=== PATIENT | female | born 1950 | race Caucasian/White ===

== ENCOUNTER → 2016-10-28 | Outpatient (CLI) | payer MEDICARE, MEDICAID ==
[~2016-10-28] MED LIST: ECOT325T5; HYDR10TA3; LISI30TA3; LOPR50TA; PRIL20CA; TEGR100C; THERGRAN
[2016-10-28 07:59] LABS: CARBAMAZEPINE (TEGRETOL) LEVEL 7.8 UG/ML (4.0-10.0)
[2016-10-28 08:04] LABS: BASO % 0.6 % (0.0-1.0); EOS # 0.2 K/mm3 (0.0-0.50); LARGE UNSTAINED CELL # 0.1 K/mm3 (0.0-0.4); LARGE UNSTAINED CELL % 2.9 % (0.0-4.0); LYMPH # 0.9 K/mm3 (1.5-4.5); LYMPH % 20.3 % (24.0-44.0); MEAN CORPUSCULAR HEMOGLOBIN 33.1 pg (27.0-33.0); MEAN CORPUSCULAR HGB CONC 35.2 g/dl (32.0-36.5); MEAN CORPUSCULAR VOLUME 93.9 fl (80.0-96.0); MONO # 0.5 K/mm3 (0.0-0.8); MONO % 10.8 % (0.0-5.0); NEUTROPHILS # 2.8 K/mm3 (1.8-7.7); NEUTROPHILS % 61.4 % (36.0-66.0); PLATELET COUNT, AUTOMATED 250 k/mm3 (150-450); RED CELL DISTRIBUTION WIDTH 11.5 % (11.5-14.5); WHITE BLOOD COUNT 4.6 K/mm3 (4.0-10.0)
== END ==
LOC: M LAB 07:15
PROVIDERS: ATTEND Physician Assistant Medical
DX: E78.2 Mixed hyperlipidemia (principal)

== ENCOUNTER → 2016-10-28 | Outpatient (CLI) | payer MEDICARE, MEDICAID ==
[2016-10-28 08:01] LABS: ALBUMIN 3.9 GM/DL (3.2-5.2); ALBUMIN/GLOBULIN RATIO 1.15 (1.00-1.93); ALKALINE PHOSPHATASE 98 U/L (45-117); ALT/SGPT 31 U/L (12-78); ANION GAP 9 MEQ/L (8-16); AST/SGOT 18 U/L (15-37); BILIRUBIN,DIRECT 0.1 MG/DL (0.0-0.2); BILIRUBIN,TOTAL 0.2 MG/DL (0.2-1.0); BLOOD UREA NITROGEN 11 MG/DL (7-18); CALCIUM LEVEL 9.1 MG/DL (8.8-10.2); CARBON DIOXIDE LEVEL 29 MEQ/L (21-32); CHLORIDE LEVEL 100 MEQ/L (98-107); CHOLESTEROL LEVEL 152 MG/DL (<200); CREATININE FOR GFR 0.87 MG/DL (0.55-1.02); GLOMERULAR FILTRATION RATE > 60.0 (>45); GLUCOSE, FASTING 125 MG/DL (80-110); POTASSIUM SERUM 4.8 MEQ/L (3.5-5.1); SODIUM LEVEL 138 MEQ/L (136-145); TOTAL PROTEIN 7.3 GM/DL (6.4-8.2); TRIGLYCERIDES LEVEL 121 MG/DL (<150)
== END ==
LOC: M LAB 07:05
PROVIDERS: ATTEND Internal Medicine Interventional Cardiology
DX: E78.2 Mixed hyperlipidemia (principal); Z95.1 Presence of aortocoronary bypass graft

== ENCOUNTER → 2016-11-12 | Outpatient (CLI) | payer MEDICARE, MEDICAID ==
[2016-11-12 07:59] LABS: ALBUMIN/GLOBULIN RATIO 1.14 (1.00-1.93); ALKALINE PHOSPHATASE 102 U/L (45-117); ALT/SGPT 30 U/L (12-78); ANION GAP 7 MEQ/L (8-16); AST/SGOT 17 U/L (15-37); BILIRUBIN,TOTAL 0.4 MG/DL (0.2-1.0); BLOOD UREA NITROGEN 12 MG/DL (7-18); CARBON DIOXIDE LEVEL 30 MEQ/L (21-32); CHLORIDE LEVEL 93 MEQ/L (98-107); CHOLESTEROL LEVEL 140 MG/DL (<200); CREATININE FOR GFR 0.88 MG/DL (0.55-1.02); GLOMERULAR FILTRATION RATE > 60.0 (>45); GLUCOSE, FASTING 114 MG/DL (80-110); POTASSIUM SERUM 4.5 MEQ/L (3.5-5.1); SODIUM LEVEL 130 MEQ/L (136-145); TOTAL PROTEIN 7.5 GM/DL (6.4-8.2); TRIGLYCERIDES LEVEL 132 MG/DL (<150)
== END ==
LOC: M LAB 06:46
PROVIDERS: ATTEND Emergency Medicine
DX: I10 Essential (primary) hypertension (principal); E78.2 Mixed hyperlipidemia; R73.01 Impaired fasting glucose; E55.9 Vitamin D deficiency, unspecified

== ENCOUNTER 2017-01-03 09:38 | Emergency (ER) | payer MEDICAID, MEDICARE ==
[~2017-01-03] VITALS: Ht 147.3 cm; Wt 64.4 kg
[2017-01-03] MEDS ORDERED: METO100T PO (10:01)
[2017-01-03] MEDS ORDERED: BRIL90TA (10:01)
[2017-01-03] MEDS ORDERED: VITA50003 (10:01)
[2017-01-03] MEDS ORDERED: [UNRECOGNIZED DRUG - CODE] (10:01)
[2017-01-03] MEDS ORDERED: ROSU20TA (10:01)
[2017-01-03] MEDS ORDERED: LORA2TAB9 (10:01)
[2017-01-03] MEDS ORDERED: RANO5TAB PO (10:01)
[2017-01-03] MEDS ORDERED: LISI10TA4 PO (10:01)
[2017-01-03] MEDS ORDERED: NITR0.4S14 (10:01)
[2017-01-03] MEDS ORDERED: ASPI1TAB PO (10:01)
[2017-01-03] MEDS ORDERED: METF500T (10:01)
[2017-01-03] MEDS ORDERED: ISOS120T4 (10:01)
[2017-01-03] MEDS ORDERED: CARB20TA PO (10:01)
[2017-01-03] MEDS ORDERED: AMLO5TAB2 (10:01)
[2017-01-03] MEDS ORDERED: KETOROLAC 30 MG/ML VIAL (J1885) IV ONE (10:30)
--- NOTE | 2017-01-03 11:26 | REP ---
Clinical: Chest pain . Comparison: 03/21/2016 . Technique: PA and lateral. Findings: The mediastinum and cardiac silhouette are stable and within normal limits. Evidence of prior sternotomy and CABG again noted. The lung charles demonstrate chronic changes without acute consolidation, effusion, or pneumothorax. The skeletal structures are intact and normal. Impression: 1. No acute cardiopulmonary process. Signed by Jean Marie Ye MD 01/03/2017 11:17 A
[2017-01-03 11:40] LABS: BASO % 0.2 % (0.0-1.0); EOS % 0.4 % (0.0-3.0); INR 0.96; LARGE UNSTAINED CELL # 0.1 K/mm3 (0.0-0.4); LARGE UNSTAINED CELL % 0.9 % (0.0-4.0); LYMPH # 0.9 K/mm3 (1.5-4.5); LYMPH % 6.3 % (24.0-44.0); MEAN CORPUSCULAR HEMOGLOBIN 32.2 pg (27.0-33.0); MEAN CORPUSCULAR HGB CONC 34.3 g/dl (32.0-36.5); MEAN CORPUSCULAR VOLUME 93.8 fl (80.0-96.0); MONO # 0.9 K/mm3 (0.0-0.8); MONO % 7.2 % (0.0-5.0); NEUTROPHILS # 11.2 K/mm3 (1.8-7.7); NEUTROPHILS % 85.1 % (36.0-66.0); PLATELET COUNT, AUTOMATED 271 k/mm3 (150-450); RED CELL DISTRIBUTION WIDTH 11.7 % (11.5-14.5); WHITE BLOOD COUNT 13.1 K/mm3 (4.0-10.0)
[2017-01-03 11:42] LABS: ALBUMIN 3.9 GM/DL (3.2-5.2); ALKALINE PHOSPHATASE 71 U/L (45-117); ALT/SGPT 34 U/L (12-78); ANION GAP 8 MEQ/L (8-16); AST/SGOT 17 U/L (15-37); BILIRUBIN,DIRECT 0.1 MG/DL (0.0-0.2); BILIRUBIN,TOTAL 0.3 MG/DL (0.2-1.0); BLOOD UREA NITROGEN 11 MG/DL (7-18); CALCIUM LEVEL 8.4 MG/DL (8.8-10.2); CARBON DIOXIDE LEVEL 25 MEQ/L (21-32); CHLORIDE LEVEL 94 MEQ/L (98-107); CREATININE FOR GFR 0.66 MG/DL (0.55-1.02); GLOMERULAR FILTRATION RATE > 60.0 (>45); GLUCOSE, FASTING 144 MG/DL (80-110); POTASSIUM SERUM 4.2 MEQ/L (3.5-5.1); SODIUM LEVEL 127 MEQ/L (136-145); TOTAL PROTEIN 7.8 GM/DL (6.4-8.2)
[2017-01-03 11:54] VITALS: BP 159/72
[2017-01-03] MEDS ORDERED: ULTR50TA PO (11:55)
--- NOTE | 2017-01-03 19:49 | ECGEPIP ---
Stationary ECG Study [facility] - ED Test Date: 2017-01-03 Pat Name: MAXIMILIAN RUIZ Department: Room: - Gender: F Scowman: JUSTICE : 1950 Requested By: Yaron Scott PA-C Order Number: [id number] Reading MD: Kathy Bowles Measurements Intervals [place] Rate: 62 P: 53 WV: 216 QRS: 65 QRSD: 104 T: 79 QT: 409 QTc: 416 Interpretive Statements SINUS RHYTHM WITH FIRST DEGREE AV BLOCK POSSIBLE LEFT ATRIAL ENLARGEMENT INCOMPLETE RIGHT BUNDLE BRANCH BLOCK MODERATE ST DEPRESSION, MORE PRONOUNCED 03/21/16 Electronically Signed On 01-03-2017 19:48:40 EDT by Kathy Bowles
== END 2017-01-03 12:12 | disposition home or self-care (01) ==
LOC: M ED 11:38
DX: M43.6 Torticollis (principal); E11.9 Type 2 diabetes mellitus without complications; I50.9 Heart failure, unspecified; I25.2 Old myocardial infarction; I25.10 Atherosclerotic heart disease of native coronary artery without angina pectoris; Z95.5 Presence of coronary angioplasty implant and graft; F33.9 Major depressive disorder, recurrent, unspecified; E78.00 Pure hypercholesterolemia, unspecified; I10 Essential (primary) hypertension; Z79.899 Other long term (current) drug therapy; Z79.82 Long term (current) use of aspirin; Z79.84 Long term (current) use of oral hypoglycemic drugs; Z88.0 Allergy status to penicillin; Z88.7 Allergy status to serum and vaccine
CPT/HCPCS: 71020; 80048; 80076; 82550; 82553; 83690; 84484; 85025; 85610; 85730; 93005; 93041; 96374; 99284; J1885

== ENCOUNTER → 2017-02-11 | Outpatient (CLI) | payer MEDICARE, OTHER ==
[~2017-02-11] MED LIST changes: +AMLO5TAB2; +ASPI1TAB PO; +BRIL90TA; +CARB20TA PO; +ISOS120T4; +LISI10TA4 PO; +LORA2TAB9; +METF500T; +METO100T PO; +NITR0.4S14; +RANO5TAB PO; +ROSU20TA; +ULTR50TA PO; +VITA50003; +[UNRECOGNIZED DRUG - CODE]
[2017-02-11 08:22] LABS: ALBUMIN/GLOBULIN RATIO 1.11 (1.00-1.93); ALKALINE PHOSPHATASE 60 U/L (45-117); ALT/SGPT 34 U/L (12-78); ANION GAP 8 MEQ/L (8-16); AST/SGOT 16 U/L (15-37); BILIRUBIN,TOTAL 0.3 MG/DL (0.2-1.0); BLOOD UREA NITROGEN 10 MG/DL (7-18); CALCIUM LEVEL 8.8 MG/DL (8.8-10.2); CARBON DIOXIDE LEVEL 28 MEQ/L (21-32); CHLORIDE LEVEL 92 MEQ/L (98-107); CHOLESTEROL LEVEL 132 MG/DL (<200); CREATININE FOR GFR 0.87 MG/DL (0.55-1.02); GLOMERULAR FILTRATION RATE > 60.0 (>45); GLUCOSE, FASTING 119 MG/DL (80-110); POTASSIUM SERUM 4.6 MEQ/L (3.5-5.1); SODIUM LEVEL 128 MEQ/L (136-145); TOTAL PROTEIN 7.6 GM/DL (6.4-8.2); TRIGLYCERIDES LEVEL 148 MG/DL (<150)
== END ==
LOC: M LAB 07:03
PROVIDERS: ATTEND Emergency Medicine
DX: E11.9 Type 2 diabetes mellitus without complications (principal); I10 Essential (primary) hypertension

== ENCOUNTER 2017-03-05 15:27 | Inpatient (IN) | payer OTHER ==
[~2017-03-05] VITALS: Ht 149.9 cm; Wt 64.5 kg
[2017-03-05] MEDS ORDERED: amLODIPine 5 MG TAB PO ONE (16:45)
[2017-03-05 16:50] LABS: BASO % 0.4 % (0.0-1.0); EOS # 0.2 K/mm3 (0.0-0.50); EOS % 2.4 % (0.0-3.0); LARGE UNSTAINED CELL # 0.1 K/mm3 (0.0-0.4); LARGE UNSTAINED CELL % 1.5 % (0.0-4.0); LYMPH # 1.3 K/mm3 (1.5-4.5); LYMPH % 20.8 % (24.0-44.0); MEAN CORPUSCULAR HEMOGLOBIN 33.4 pg (27.0-33.0); MEAN CORPUSCULAR HGB CONC 35.6 g/dl (32.0-36.5); MONO # 0.5 K/mm3 (0.0-0.8); MONO % 8.3 % (0.0-5.0); NEUTROPHILS # 4.2 K/mm3 (1.8-7.7); NEUTROPHILS % 66.5 % (36.0-66.0); PLATELET COUNT, AUTOMATED 266 k/mm3 (150-450); RED CELL DISTRIBUTION WIDTH 11.8 % (11.5-14.5); WHITE BLOOD COUNT 6.2 K/mm3 (4.0-10.0)
[2017-03-05 16:51] LABS: ANION GAP 7 MEQ/L (8-16); BLOOD UREA NITROGEN 12 MG/DL (7-18); CALCIUM LEVEL 8.7 MG/DL (8.8-10.2); CARBON DIOXIDE LEVEL 27 MEQ/L (21-32); CHLORIDE LEVEL 95 MEQ/L (98-107); CREATININE FOR GFR 0.78 MG/DL (0.55-1.02); GLOMERULAR FILTRATION RATE > 60.0 (>45); GLUCOSE, FASTING 153 MG/DL (80-110); SODIUM LEVEL 129 MEQ/L (136-145)
--- NOTE | 2017-03-05 17:03 | REP ---
Clinical: Transient ischemic attack. Comparison: none. Findings: The ventricles, sulci, and cisterns are normal in position and appearance. Freeman-white differentiation is maintained. No acute intracranial hemorrhage, mass/mass effect, pathology or trauma/injury. No evidence for acute infarction. No extra-axial fluid collection. Calvarium is intact. Paranasal sinuses and mastoid air cells are clear. Impression: Normal noncontrast head CT. No evidence for acute intracranial pathology or trauma/injury. Signed by Jean Marie Ye MD 03/05/2017 04:55 P
[2017-03-05] MEDS ORDERED: VITA50003 PO (17:21)
[2017-03-05] MEDS ORDERED: ASPI81TA7 PO (17:21)
[2017-03-05] MEDS ORDERED: AMLO5TAB2 PO (17:21)
[2017-03-05] MEDS ORDERED: CARB10TACH PO (17:21)
[2017-03-05] MEDS ORDERED: ISOS120T4 PO (17:22)
[2017-03-05] MEDS ORDERED: LORA2TAB9 PO (17:22)
[2017-03-05] MEDS ORDERED: LISI10TA4 PO (17:22)
[2017-03-05] MEDS ORDERED: CRES20TA PO (17:29)
[2017-03-05] MEDS ORDERED: BRIL90TA PO (17:29)
[2017-03-05] MEDS ORDERED: RANO5TAB PO (17:29)
[2017-03-05] MEDS ORDERED: IBAN150T5 PO (17:29)
[2017-03-05] MEDS ORDERED: VITA10002 PO (17:29)
[2017-03-05] MEDS ORDERED: METO100T PO (17:29)
[2017-03-05] MEDS ORDERED: NITR4TASL SL (17:29)
[2017-03-05] MEDS ORDERED: hydrALAZINE INJ 20 MG/ML VIAL IV ONE (18:30)
[2017-03-05] MEDS ORDERED: GLUCAGON FOR INJ 1 MG VIAL (J1610) SC PRN (20:15)
[2017-03-05] MEDS ORDERED: GLUCOSE 4 GM CHEW TABLET PO PRN (20:15)
[2017-03-05] MEDS ORDERED: DEXTROSE 50% 50 ML SYRINGE IV PRN (20:15)
[2017-03-05] MEDS ORDERED: ROSUVASTATIN 10 MG TAB (CRESTOR) PO SCH (21:00)
[2017-03-05 21:55] VITALS: BP 162/74
--- NOTE | 2017-03-05 22:05 | HPE ---
DATE OF ADMISSION: 03/05/2017 CHIEF COMPLAINT: Left arm numbness and slurred speech. PRIMARY CARE PROVIDER: Dr. Shane Bullock NEUROLOGIST: Dr. Amelia Allen E COMMERCE MARKETING MANAGER: Dr. Norman Juares, [facility] in [place] HISTORY OF PRESENT ILLNESS: This is a 66-year-old female patient with underlying medical history of hypertension, dyslipidemia, coronary artery disease with coronary artery bypass graft (CABG) and stent placement, seizure disorder, sees Dr. Allen, anxiety, osteoporosis, perforation of left tympanic membrane, last stent placed May 2016. Patient presented with acute onset at 3 p.m. with left-sided upper and lower extremity numbness, lip numbness, and slurred speech. Symptoms resolved in 10-15 minutes. By the time patient arrived in the emergency room symptoms had resolved. Patient does not know when her last episode of seizure was. Denies any chest pain, pressure or discomfort. No previous similar episodes. Denies any headache, vision change, hearing change. Early this morning patient felt like she had some visual aura, but subsequently has resolved. Denies any sick contact, diarrhea, constipation, urinary complaints. Reported strength to be within normal limits. ALLERGIES: PENICILLIN, PNEUMOCOCCAL VACCINE. PAST MEDICAL HISTORY: 1. Hypertension. 2. Dyslipidemia. 3. Coronary artery disease with stents and CABG. 4. Seizure disorder. 5. Perforated left tympanic membrane. 6. Osteoporosis. 7. Anxiety. 8. Gastroesophageal reflux disease (GERD). PAST SURGICAL HISTORY: 1. section times two. 2. Hysterectomy. 3. Carotid artery repair. 4. CABG 2002. 5. Stent placement May 2016. 6. Appendectomy. FAMILY HISTORY: Brother with coronary artery disease. SOCIAL HISTORY: Patient does not smoke or drink alcoholic beverages. Does not use recreational drugs. REVIEW OF SYSTEMS: Patient reported left arm and leg numbness, reported slurred speech, currently resolved. All other review of systems are negative. HOME MEDICATIONS: - nitroglycerin sublingual 0.4 mg as needed - alendronate 150 mg by mouth once a month - Norvasc 5 mg by mouth twice a day - aspirin 81 mg by mouth daily - carbamazepine 200 mg by mouth twice a day - vitamin B12 1000 mcg by mouth daily - vitamin D 50,000 units by mouth monthly - isosorbide mononitrate 120 mg by mouth daily - lisinopril 10 mg by mouth daily - lorazepam 2 mg by mouth three times a day - metoprolol 100 mg by mouth twice a day - Ranexa 500 mg by mouth twice a day - Crestor 20 mg by mouth every evening - Brilinta 90 mg by mouth twice a day PHYSICAL EXAMINATION: VITAL SIGNS: Temperature 97.8, blood pressure 195/85, pulse 62, respirations 18, pulse oximetry 98% on room air. GENERAL: Patient alert and oriented times three in no acute distress. HEENT: Normocephalic, atraumatic. PULMONARY: Bilateral clear to auscultation. CARDIAC: Regular rate and rhythm, normal S1, S2. ABDOMEN: Soft, nontender, nondistended. EXTREMITIES: No edema bilateral lower extremities. NEUROLOGIC: Cranial nerves II-XII grossly intact. [id number] intact. Able to move all four extremities. Sensation to light touch intact, bilateral upper and lower extremities symmetrical. 5/5 bilateral upper and lower extremity strength. EKG sinus rhythm, T wave inversion V1, no significant change compared to previous. LABORATORY DATA: WBC 6.2, hemoglobin and hematocrit 14.6/41.2, platelets 266. Chemistry: Sodium 129, potassium 4, chloride 95, bicarbonate 27, BUN 12, creatinine 0.78. TSH 3.58. CT of the head within normal limits. ASSESSMENT AND PLAN: This is a 66-year-old female patient with underlying medical history of, as per patient, prediabetes, hypertension, dyslipidemia, coronary artery disease with stents and coronary artery bypass graft (CABG), seizure disorder, osteoporosis, admitted with hypertensive urgency and left-sided numbness and slurred speech. 1. Left-sided numbness and slurred speech. Possibility including transient ischemic attack (TIA) versus hypertensive induced encephalopathy. Case discussed with Dr. George. Given patient is already on antiplatelets, Brilinta and aspirin, will keep the patient on Brilinta and aspirin and statin, Crestor, and control the blood pressure. Patient's symptoms have resolved. Will complete the stroke workup including MRI/MRA of the brain, MRA of the neck, and echocardiogram. Patient prefers open MRI. Case also discussed with patient's ceramics technician from [facility], Dr. Juares, for patient's concern of stent. As per Dr. Juares, it is safe for patient to undergo MRI based on the patient's stent. Followup neurology recommendation, neurologic checks. Monitor blood pressure, blood pressure goal of 160-180 systolic over the next 24 hours. Telemetry monitoring. 2. Hypertensive urgency. Continue patient, in the setting of transient ischemic attack (TIA), blood pressure goal of 160-180 systolic. Continue Norvasc. One dose of hydralazine IV has been given. Continue Imdur, lisinopril, metoprolol, adjust as needed. Will workup for alternative causes of hypertension, including renin, aldosterone, as well as urine metanephrine and cortisol. 3. Hyponatremia. Patient's previous sodium ranges from 129-128. Will send additional urine studies for further workup. In the meantime, continue to monitor basic metabolic panel. 4. Seizure disorder. Continue current medication. Seizure precaution. 5. Coronary artery disease. Continue aspirin, Brilinta, statin, blood pressure medication, beta blockers, and angiotensin-converting enzyme (VIKA) inhibitor as ordered and also Imdur. Monitor blood pressure. 6. Prediabetes. Followup A1c, lipid panel, given patient presented with symptoms of transient ischemic attack (TIA), insulin as per protocol, followup fingersticks. 7. Deep venous thrombosis (DVT) prophylaxis. Patient on aspirin and Brilinta. Sequential compression device, early ambulation, physical therapy. DISPOSITION: Pending neurology consultation, further workup, and blood pressure control.
--- NOTE | 2017-03-05 22:09 | ECGEPIP ---
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
[2017-03-05] MEDS: METOPROLOL TARTRATE 100 MG TAB PO SCH (23:01)
[2017-03-05] MEDS: RANOLAZINE 500 MG ER TAB PO SCH (23:11)
[2017-03-05] MEDS: TICAGRELOR 90 MG TABLET (BRILINTA) PO SCH (23:11)
[2017-03-05] MEDS: carBAMazepine 200 MG TAB PO SCH (23:12)
[2017-03-05] MEDS: LORazepam 2 MG TAB PO SCH (23:12)
[2017-03-05] MEDS: amLODIPine 5 MG TAB PO SCH (23:12)
[2017-03-06] VITALS (9 sets, daily range): BP systolic 129–153; BP diastolic 66–74; O2SAT 96–97
[2017-03-06 02:19] LABS: ANION GAP 8 MEQ/L (8-16); BLOOD UREA NITROGEN 11 MG/DL (7-18); CALCIUM LEVEL 8.7 MG/DL (8.8-10.2); CARBON DIOXIDE LEVEL 27 MEQ/L (21-32); CHLORIDE LEVEL 101 MEQ/L (98-107); GLOMERULAR FILTRATION RATE > 60.0 (>45); GLUCOSE, FASTING 121 MG/DL (80-110); POTASSIUM SERUM 4.4 MEQ/L (3.5-5.1); SODIUM LEVEL 136 MEQ/L (136-145)
[2017-03-06 05:09] LABS: MEAN CORPUSCULAR HEMOGLOBIN 33.1 pg (27.0-33.0); MEAN CORPUSCULAR VOLUME 94.8 fl (80.0-96.0); RED CELL DISTRIBUTION WIDTH 11.9 % (11.5-14.5); WHITE BLOOD COUNT 5.9 K/mm3 (4.0-10.0)
[2017-03-06 05:49] LABS: ANION GAP 7 MEQ/L (8-16); BLOOD UREA NITROGEN 11 MG/DL (7-18); CALCIUM LEVEL 8.7 MG/DL (8.8-10.2); CARBON DIOXIDE LEVEL 27 MEQ/L (21-32); CHLORIDE LEVEL 102 MEQ/L (98-107); CHOLESTEROL LEVEL 144 MG/DL (<200); CREATININE FOR GFR 0.74 MG/DL (0.55-1.02); GLOMERULAR FILTRATION RATE > 60.0 (>45); GLUCOSE, FASTING 119 MG/DL (80-110); MAGNESIUM LEVEL 2.3 MG/DL (1.8-2.4); POTASSIUM SERUM 4.1 MEQ/L (3.5-5.1); SODIUM LEVEL 136 MEQ/L (136-145); TRIGLYCERIDES LEVEL 127 MG/DL (<150)
[2017-03-06] MEDS: HumaLOG INSULIN (NovoLOG) PER UNIT SC SCH ×2 (07:30→12:00)
[2017-03-06] MEDS: carBAMazepine 200 MG TAB PO SCH (08:29)
[2017-03-06] MEDS: RANOLAZINE 500 MG ER TAB PO SCH (08:30)
[2017-03-06] MEDS: LORazepam 2 MG TAB PO SCH ×2 (08:30→16:23)
[2017-03-06] MEDS: METOPROLOL TARTRATE 100 MG TAB PO SCH (08:30)
[2017-03-06] MEDS: TICAGRELOR 90 MG TABLET (BRILINTA) PO SCH (08:31)
[2017-03-06] MEDS: amLODIPine 5 MG TAB PO SCH (08:31)
[2017-03-06] MEDS ORDERED: ISOSORBIDE MON. (IMDUR) 60 MG XR TAB PO SCH (09:00)
[2017-03-06] MEDS ORDERED: CYANOCOBALAMIN 500 MCG TAB PO SCH (09:00)
[2017-03-06] MEDS ORDERED: LISINOPRIL 10 MG TAB PO SCH (09:00)
[2017-03-06] MEDS ORDERED: ASPIRIN 81 MG ENTERIC TAB PO SCH (09:00)
[2017-03-06] MEDS ORDERED: ISOVUE-370 76% 100ML VIAL (Q9967) As Ordered ONE (13:16)
--- NOTE | 2017-03-06 14:12 | REP ---
CT HEAD WITHOUT CONTRAST: HISTORY: Infarction. COMPARISON: 03/05/2017 An area of decreased attenuation is present in the head of the left caudate nucleus. This represents an old lacunar infarction. Areas of decreased attenuation are present in the periventricular white matter. This represents small vessel ischemic disease. There is no intraparenchymal hemorrhage, mass or midline shift. The ventricular system and cortical sulci are dilated consistent with mild volume loss. There is no extracerebral collection. The visualized sinuses are clear. IMPRESSION: 1. Old left basal ganglia lacunar infarction. 2. Small vessel ischemic disease. 3. Mild volume loss. Signed by Pradeep Neville MD 03/06/2017 02:26 P
--- NOTE | 2017-03-06 14:36 | REP ---
Clinical: Transient ischemic attack . Technique: Freeman scale and color Doppler evaluation using linear high frequency transducer Findings: Two-dimensional freeman scale and color images demonstrate mixed atheromatous plaquing along the common carotid arteries extending to the carotid bulbs and proximal internal and external carotid arteries (left greater than right). Normal laminar flow. Color Doppler interrogation demonstrates normal arterial wave patterns with moderate spectral broadening. Normal flow direction is appreciated in the bilateral vertebral arteries. RIGHT (cm/s) LEFT (cm/s) ICA peak systolic velocity 53.7 78.6 ICA diastolic velocity 10.0 23.4 ECA peak systolic velocity 101.1 93.5 CCA peak systolic velocity 92.5 55.5 ICA/CCA ratio 0.58 1.42 Impression: No hemodynamically significant areas of narrowing or stenosis appreciated. Based on set standards narrowing falls within the less than 50% range. Signed by Jean Marie Ye MD 03/06/2017 02:27 P
--- NOTE | 2017-03-06 14:50 | REP ---
CT ANGIO HEAD: HISTORY: Rule out aneurysm. CONTRAST: Isovue 370, 75 mL. There is no aneurysm or arteriovenous malformation. A calcified atherosclerotic plaque is present in the cavernous left internal carotid artery. There is no significant stenosis. Major intracranial vessels are patent. The left vertebral artery is dominant. IMPRESSION: There is no aneurysm or arteriovenous malformation. Signed by Pradeep Neville MD 03/06/2017 02:54 P
[2017-03-06] MEDS ORDERED: LOPR1TAB6 PO (15:44)
--- NOTE | 2017-03-06 16:07 | DSES ---
DATE OF ADMISSION: 03/05/2017 DATE OF DISCHARGE: PRIMARY CARE PHYSICIAN: Dr. Shane Bullock REFERRING PHYSICIAN: None. CONSULTING PHYSICIAN: None. CONDITION ON DISCHARGE: Stable. FINAL DIAGNOSIS: Left arm weakness, possibly secondary to hypertensive encephalopathy, possibly secondary to transient ischemic attack. PROCEDURES: None. HISTORY OF PRESENT ILLNESS: Patient is a 66-year-old female with a past medical history of hypertension, dyslipidemia, coronary artery disease, status post coronary artery bypass graft (CABG), seizure disorder, perforated left tympanic membrane, osteoporosis, anxiety, and gastroesophageal reflux disease (GERD) who presented to the emergency room with complaints of left-sided upper and lower extremity numbness as well as lip numbness and slurred speech. Symptoms had resolved in about 10-15 minutes after they had initiated. By the time patient had arrived to the emergency room she had no symptoms. Patient was admitted to telemetry floor for possible transient ischemic attack (TIA)/hypertensive encephalopathy. HOSPITAL COURSE: 1. Left-sided numbness and slurred speech, possibly secondary to hypertensive-induced encephalopathy, possibly secondary to TIA. Case was discussed with Dr. Funes. Patient was already on anti-platelet therapy with Brilinta and aspirin. Patient initially had a CT scan, which was negative for any acute findings. Patient had a subsequent CT scan as well as a CTA of her head and ultrasound of carotids, which were negative for any acute findings. CT head subsequently showed old left basal ganglia lacunar infarct, small-vessel ischemic disease, mild volume loss. Patient was advised to get an MRI, but only wanted open MRI. Open MRI was unavailable, and patient was unable to get closed MRI, because she was extremely claustrophobic. Patient did not want to receive any sedation for the MRI. Plan was discussed with Dr. George, who agreed that patient will get subsequent CT scan imaging. Patient has been advised to followup with her primary care provider and neurology as an outpatient. 2. Hypertensive urgency. Continue patient on blood pressure medications, Imdur, lisinopril, and metoprolol, and adjustments to metoprolol were made upon discharge. 3. Hyponatremia. Patient sodium had previously ranged from 129-128. Sodium currently is normalized to 136. 4. Seizure disorder. Continue the current medication. 5. Coronary artery disease. Continue with aspirin, Brilinta, statin, blood pressure medications, and beta blockers. 6. Prediabetes. Patient was started on insulin sliding scale as an inpatient and continued with lifestyle modifications as an outpatient. 7. Deep vein thrombosis (DVT) prophylaxis. Continue with aspirin, Brilinta, and sleeve compression devices. DISCHARGE MEDICATIONS: Patient will be discharged on the following medication list: - amlodipine 5 mg by mouth twice a day - aspirin 81 mg by mouth daily - carbamazepine 200 mg by mouth twice a day - vitamin B12 at 1000 mcg by mouth daily - vitamin D 50,000 units by mouth monthly - ibandronate 150 mg by mouth monthly - isosorbide mononitrate 120 mg by mouth daily - lisinopril 10 mg by mouth daily - lorazepam 2 mg by mouth three times a day - nitroglycerine 0.4 mg sublingual every 5 minutes as needed for chest pain - ranolazine 500 mg by mouth twice a day - rosuvastatin 20 mg by mouth every evening - Brilinta 90 mg by mouth twice a day Stopped medications include metoprolol 100 twice a day. New medication prescribed includes metoprolol 50 mg by mouth twice a day. DISCHARGE INSTRUCTIONS: Patient has been advised to followup with her primary care provider and neurology within the next 7 days. She has been advised to remain compliant with treatment plan and medications and return to the emergency room if she experiences any problems. TIME SPENT ON DISCHARGE: 35 minutes.
[2017-03-06] MEDS ORDERED: METOPROLOL TART 50 MG TAB PO SCH (21:00)
--- NOTE | 2017-03-07 11:35 | ECHO ---
DATE OF SERVICE: 03/06/2017 AGE: 66 REFERRING PROVIDER: Rosalba Narayanan MD PATIENT LOCATION: Room 3215 REASON FOR THE ECHOCARDIOGRAM: Cerebrovascular accident (CVA). 2D MEASUREMENTS: IVS: 1.3 cm LV: 4.0 cm LVPW: 1.2 cm LA: 3.6 cm Aorta: 3.6 cm IVC: 0.7 cm DOPPLER MEASUREMENTS: Peak velocity across the aortic valve: 1.4 m/s Peak velocity across the LVOT: 0.92 m/s Mitral E: 0.65 Mitral A: 1.0 with a ratio of 0.6 Maximum tricuspid valve velocity: 2.5 m/s 2D COMMENTS: 1. Normal left ventricular size with mildly increased left ventricular wall thickness. Left ventricular systolic function is normal with an estimated global left ventricular systolic ejection fraction of 60% to 65%. 2. Normal left atrium. Normal right atrium and right ventricle. 3. There was a small color flow noted at the level of the fossa ovalis that may represent a patent foramen ovale/PFO. 4. Normal aortic root. 5. No pericardial effusion seen. 6. Minimally calcified aortic valve with normal leaflet excursion. Mildly calcified mitral annulus with normal anterior mitral valve leaflet motion. Normal tricuspid valve. The pulmonic valve was not well visualized. The proximal pulmonary artery branches were not visualized. 7. The inferior vena cava was small DOPPLER: It detects mild aortic regurgitation, trace mitral regurgitation, and mild tricuspid regurgitation. The calculated pulmonary artery systolic pressure varied between 30-40 mmHg. Abnormal relaxation pattern was noted across the mitral valve leaflets, as well as the mitral valve anulus consistent with grade 1 left ventricular diastolic dysfunction. IMPRESSION: 1. Normal global left ventricular systolic function with mild concentric left ventricular hypertrophy. There were features of left ventricular diastolic dysfunction manifested by abnormal relaxation, grade 1. 2. Aortic valve sclerosis with mild aortic regurgitation but no aortic stenosis. 3. Mitral annulus calcification with trace mitral regurgitation. 4. Mild tricuspid regurgitation with mild pulmonary hypertension. 5. Probably patent foramen ovale by color Doppler. The patient might benefit from a bubble study looking for anterior cardiac shunt, and in view of this CVA, she might benefit from a transesophageal echocardiogram.
[2017-03-14] MEDS ORDERED: VITAMIN D 50,000 UNITS CAPSULE (ERGOCALCIFEROL 1.25MG) PO SCH (09:00)
== END 2017-03-06 17:20 | disposition home or self-care (01) | DRG 78 ==
LOC: M ED 16:50 → M ED INP 20:05 → M PCU 21:51
PROVIDERS: ADMIT Hospitalist; ATTEND Internal Medicine
DX: I67.4 Hypertensive encephalopathy (principal); E87.1 Hypo-osmolality and hyponatremia; I10 Essential (primary) hypertension; E78.5 Hyperlipidemia, unspecified; I25.10 Atherosclerotic heart disease of native coronary artery without angina pectoris; G40.909 Epilepsy, unspecified, not intractable, without status epilepticus; R47.81 Slurred speech; I16.0 Hypertensive urgency; R20.0 Anesthesia of skin; M81.0 Age-related osteoporosis without current pathological fracture; F41.9 Anxiety disorder, unspecified; Z95.5 Presence of coronary angioplasty implant and graft; K21.9 Gastro-esophageal reflux disease without esophagitis; Z79.82 Long term (current) use of aspirin; Z79.899 Other long term (current) drug therapy; R73.03 Prediabetes

== ENCOUNTER → 2017-03-25 | Outpatient (CLI) | payer MEDICARE ==
[~2017-03-25] MED LIST changes: +AMLO5TAB2 PO; +ASPI81TA7 PO; +BRIL90TA PO; +CARB10TACH PO; +CRES20TA PO; +IBAN150T5 PO; +ISOS120T4 PO; +LOPR1TAB6 PO; +LORA2TAB9 PO; +NITR4TASL SL; +VITA10002 PO; +VITA50003 PO
[2017-03-25 08:06] LABS: CARBAMAZEPINE (TEGRETOL) LEVEL 8.6 UG/ML (4.0-10.0)
== END ==
LOC: M LAB 06:51
PROVIDERS: ATTEND Physician Assistant Medical
DX: R56.9 Unspecified convulsions (principal); E87.1 Hypo-osmolality and hyponatremia

== ENCOUNTER → 2017-05-05 | Outpatient (CLI) | payer MEDICARE, MEDICAID ==
[~2017-05-05] MED LIST changes: +ASPI1TAB15 PO; -ASPI81TA7 PO; -METF500T; +METF500T13; -METO100T PO; +METO100T5 PO; -ULTR50TA PO; +ULTR50TA8 PO; +VITA1CAP40; +VITA1CAP40 PO; -VITA50003; -VITA50003 PO
== END ==
LOC: M LAB 08:27
PROVIDERS: ATTEND Physician Assistant Medical
DX: E87.1 Hypo-osmolality and hyponatremia (principal)

== ENCOUNTER → 2017-05-20 | Outpatient (CLI) | payer MEDICARE, MEDICAID | LOC: M LAB 07:54 | PROVIDERS: ATTEND Physician Assistant Medical | DX: R56.9 Unspecified convulsions (principal); E87.1 Hypo-osmolality and hyponatremia ==

== ENCOUNTER → 2017-06-01 | Outpatient (CLI) | payer MEDICARE, MEDICAID | LOC: M LAB 07:59 | PROVIDERS: ATTEND Physician Assistant Medical | DX: R56.9 Unspecified convulsions (principal) ==

== ENCOUNTER → 2017-07-03 | Outpatient (CLI) | payer OTHER | LOC: M LAB 07:08 | PROVIDERS: ATTEND Physician Assistant Medical | DX: R56.9 Unspecified convulsions (principal) ==

== ENCOUNTER → 2017-07-28 | Outpatient (REF) | payer OTHER | LOC: M LABNEURO 08:39 | PROVIDERS: ATTEND Physician Assistant Medical | DX: R56.9 Unspecified convulsions (principal); E87.1 Hypo-osmolality and hyponatremia ==

== ENCOUNTER → 2017-10-27 | Outpatient (CLI) | payer OTHER | LOC: M LAB 07:28 | DX: Z51.81 Encounter for therapeutic drug level monitoring (principal); Z79.899 Other long term (current) drug therapy; R56.9 Unspecified convulsions | CPT/HCPCS: 36415 ==

== ENCOUNTER → 2018-02-15 | Outpatient (CLI) | payer OTHER, MEDICAID ==
[2018-02-15 07:40] LABS: ALBUMIN/GLOBULIN RATIO 1.18 (1.00-1.93); ALKALINE PHOSPHATASE 73 U/L (45-117); ALT/SGPT 42 U/L (12-78); ANION GAP 5 MEQ/L (8-16); AST/SGOT 26 U/L (7-37); BILIRUBIN,TOTAL 0.4 MG/DL (0.2-1.0); BLOOD UREA NITROGEN 12 MG/DL (7-18); CARBON DIOXIDE LEVEL 28 MEQ/L (21-32); CHLORIDE LEVEL 109 MEQ/L (98-107); CHOLESTEROL LEVEL 114 MG/DL (<200); CHOLESTEROL RISK RATIO 2.235 (<5); CREATININE FOR GFR 0.89 MG/DL (0.55-1.30); GLOMERULAR FILTRATION RATE > 60.0 (>45); GLUCOSE, FASTING 136 MG/DL (70-100); HDL CHOLESTEROL 51 MG/DL (>40); LDL CHOLESTEROL 42.2 MG/DL (<100); NON-HDL-C 63 MG/DL; POTASSIUM SERUM 4.2 MEQ/L (3.5-5.1); SODIUM LEVEL 142 MEQ/L (136-145); TOTAL PROTEIN 7.4 GM/DL (6.4-8.2); TRIGLYCERIDES LEVEL 104 MG/DL (<150)
[2018-02-15 07:49] LABS: CREATININE, URINE 94.9 MG/DL; MALB URINE SIEMENS 76.7 MG/L; MAU/CREAT RATIO 80.8 MCG/MG (0.0-30.0)
[2018-02-15 08:00] LABS: ESTIMATED AVERAGE GLUCOSE 151 MG/DL (60-110); HEMOGLOBIN A1c 6.9 %
[2018-02-15 10:38] LABS: TOTAL 25(OH) VITAMIN D 29.4 NG/ML (30.0-100.0)
[2018-02-15 10:39] LABS: VITAMIN B12 LEVEL 829 PG/ML
== END ==
LOC: M LAB 06:31
DX: E11.9 Type 2 diabetes mellitus without complications (principal); D51.9 Vitamin B12 deficiency anemia, unspecified; I10 Essential (primary) hypertension; E78.2 Mixed hyperlipidemia; E55.9 Vitamin D deficiency, unspecified
CPT/HCPCS: 82746

== ENCOUNTER → 2018-03-02 | Outpatient (CLI) | payer OTHER, MEDICAID ==
[2018-03-04 08:11] LABS: LAMOTRIGINE (LAMICTAL) 4.2 ug/mL (2.0-20.0)
== END ==
LOC: M LAB 07:28
DX: R56.9 Unspecified convulsions (principal)
CPT/HCPCS: 36415

== ENCOUNTER 2018-03-17 09:11 | Day surgery (SDC) | payer OTHER, MEDICAID ==
[2018-03-17] MEDS: LIDOCAINE 1% SDV 5 ML VIAL As Ordered (07:02)
[~2018-03-17 09:11] MED LIST changes: +ACETAMINOPHEN 325 MG TAB PO; -AMLO5TAB2; -AMLO5TAB2 PO; -ASPI1TAB PO; -ASPI1TAB15 PO; -BRIL90TA; -BRIL90TA PO; -CARB10TACH PO; -CARB20TA PO; -CRES20TA PO; -ECOT325T5; -HYDR10TA3; -IBAN150T5 PO; -ISOS120T4; -ISOS120T4 PO; -LISI10TA4 PO; -LISI30TA3; -LOPR1TAB6 PO; -LOPR50TA; -LORA2TAB9; -LORA2TAB9 PO; -METF500T13; -METO100T5 PO; -NITR0.4S14; -NITR4TASL SL; -PRIL20CA; +PROPARACAINE 0.5% OPHTH SOL 15ML OS; -RANO5TAB PO; -ROSU20TA; -TEGR100C; -THERGRAN; -ULTR50TA8 PO; -VITA10002 PO; -VITA1CAP40; -VITA1CAP40 PO; -[UNRECOGNIZED DRUG - CODE]
[2018-03-17] MEDS: PHENYLEPHRINE HCL 10 % OPHTH. SOL 5ML OS (10:00)
[2018-03-17] MEDS: TROPICAMIDE 1% OPHTH SOLN 2ML OS (10:04)
[2018-03-17] MEDS: LIDOCAINE 3.5 % 1ML OPHTH TOPICAL GEL OU (10:04)
[2018-03-17] MEDS: CYCLOPENTOLATE 2% OPHTH SOLN 2ML BTL OS (10:04)
[2018-03-17] MEDS: PHENYLEPHRINE 2.5% OPHTH SOL 2ML OS (10:04)
[2018-03-17] MEDS: OFLOXACIN 0.3 % (OCUFLOX) OPTH SOL 5ML OS (10:04)
[2018-03-17 10:10] LABS: BEDSIDE GLUCOSE 126 MG/DL (80-115)
[2018-03-17] MEDS ORDERED: fentaNYL 100 MCG/2 ML INJECTION (J3010) As Ordered (11:00)
[2018-03-17] MEDS ORDERED: MIDAZOLAM INJ 2 MG/2 ML VIAL (J2250) As Ordered (11:00)
[2018-03-17] MEDS: BALANCED SALT IRRIGATION SOLUTION 500ML BAG (FOR OR EYE MACHINE) As Ordered (11:02)
[2018-03-17] MEDS: POVIDONE-IODINE 5% OPHTH PREP SOL 30ML As Ordered (11:02)
[2018-03-17] MEDS: HEALON DUET (HEALON 10MG/ML 0.55ML & HEALON ENDOCOAT 30MG/ML 0.85ML) As Ordered (11:02)
[2018-03-17] MEDS: KETOROLAC 0.5% OPHTH SOLN OS (12:15)
[2018-03-17] MEDS ORDERED: TRIMETHOBENZAMIDE 300 MG CAP PO (12:15)
[2018-03-17] MEDS: AcetaZOLAMIDE 500 MG ER CAP PO (12:15)
== END 2018-03-17 12:20 | disposition home or self-care (01) ==
LOC: M SDC 09:11
DX: H25.12 Age-related nuclear cataract, left eye (principal); I25.10 Atherosclerotic heart disease of native coronary artery without angina pectoris; Z98.61 Coronary angioplasty status; I25.2 Old myocardial infarction; E11.9 Type 2 diabetes mellitus without complications; E78.5 Hyperlipidemia, unspecified; I10 Essential (primary) hypertension; F41.9 Anxiety disorder, unspecified; F32.9 Major depressive disorder, single episode, unspecified; Z88.0 Allergy status to penicillin; Z79.899 Other long term (current) drug therapy
CPT/HCPCS: 66984

== ENCOUNTER 2018-03-24 06:41 | Day surgery (SDC) | payer OTHER, MEDICAID ==
[~2018-03-24 06:41] MED LIST changes: -ACETAMINOPHEN 325 MG TAB PO; -PROPARACAINE 0.5% OPHTH SOL 15ML OS; +SLF 3 ML SYR IV
[2018-03-24] MEDS ORDERED: CYCLOPENTOLATE 2% OPHTH SOLN 2ML BTL OD (07:00)
[2018-03-24] MEDS ORDERED: PHENYLEPHRINE HCL 10 % OPHTH. SOL 5ML OD (07:00)
[2018-03-24] MEDS ORDERED: PROPARACAINE 0.5% OPHTH SOL 15ML OD (07:01)
[2018-03-24] MEDS: TROPICAMIDE 1% OPHTH SOLN 2ML OD (07:07)
[2018-03-24] MEDS: OFLOXACIN 0.3 % (OCUFLOX) OPTH SOL 5ML OD (07:07)
[2018-03-24] MEDS: PHENYLEPHRINE 2.5% OPHTH SOL 2ML OD (07:07)
[2018-03-24] MEDS: LIDOCAINE 3.5 % 1ML OPHTH TOPICAL GEL OU (07:07)
[2018-03-24 07:12] LABS: BEDSIDE GLUCOSE 147 MG/DL (80-115)
[2018-03-24] MEDS ORDERED: MIDAZOLAM INJ 2 MG/2 ML VIAL (J2250) As Ordered (08:50)
[2018-03-24] MEDS ORDERED: fentaNYL 100 MCG/2 ML INJECTION (J3010) As Ordered (08:50)
[2018-03-24] MEDS: POVIDONE-IODINE 5% OPHTH PREP SOL 30ML As Ordered (08:54)
[2018-03-24] MEDS: ACETYLCHOLINE OPHTH SOLN 1% 2ML (MIOCHOL-E) As Ordered (08:54)
[2018-03-24] MEDS: BALANCED SALT IRRIGATION SOLUTION 500ML BAG (FOR OR EYE MACHINE) As Ordered (08:55)
[2018-03-24] MEDS: HEALON DUET (HEALON 10MG/ML 0.55ML & HEALON ENDOCOAT 30MG/ML 0.85ML) As Ordered (08:55)
[2018-03-24] MEDS: LIDOCAINE 1% SDV 5 ML VIAL As Ordered (08:55)
[2018-03-24] MEDS: ACETAMINOPHEN 325 MG TAB PO (09:30)
[2018-03-24] MEDS: AcetaZOLAMIDE 500 MG ER CAP PO (09:30)
[2018-03-24] MEDS ORDERED: TRIMETHOBENZAMIDE 300 MG CAP PO (09:30)
[2018-03-24] MEDS: KETOROLAC 0.5% OPHTH SOLN OD (09:30)
== END 2018-03-24 09:50 | disposition home or self-care (01) ==
LOC: M SDC 06:41
DX: H25.11 Age-related nuclear cataract, right eye (principal); E11.51 Type 2 diabetes mellitus with diabetic peripheral angiopathy without gangrene; I11.9 Hypertensive heart disease without heart failure; I25.10 Atherosclerotic heart disease of native coronary artery without angina pectoris; Z95.5 Presence of coronary angioplasty implant and graft; Z95.1 Presence of aortocoronary bypass graft; M81.0 Age-related osteoporosis without current pathological fracture; E78.5 Hyperlipidemia, unspecified; F41.1 Generalized anxiety disorder; G40.909 Epilepsy, unspecified, not intractable, without status epilepticus; E55.9 Vitamin D deficiency, unspecified; F31.9 Bipolar disorder, unspecified; I25.2 Old myocardial infarction; R01.1 Cardiac murmur, unspecified; I73.9 Peripheral vascular disease, unspecified; Z79.899 Other long term (current) drug therapy; Z79.84 Long term (current) use of oral hypoglycemic drugs; Z79.82 Long term (current) use of aspirin; Z88.0 Allergy status to penicillin; Z88.5 Allergy status to narcotic agent; Z88.8 Allergy status to other drugs, medicaments and biological substances; Z88.7 Allergy status to serum and vaccine; Z87.891 Personal history of nicotine dependence
CPT/HCPCS: 66984

== ENCOUNTER 2018-04-07 18:00 | Emergency (ER) | payer OTHER, MEDICAID ==
[2018-04-07] MEDS: ASPIRIN 81 MG CHEW TABLET PO (19:13)
[2018-04-07 19:50] LABS: BASO % 0.5 % (0.0-1.0); EOS # 0.2 10^3/uL (0.0-0.50); EOS % 2.4 % (0.0-3.0); HEMOGLOBIN 13.6 g/dl (12.0-15.5); IMMATURE GRANULOCYTE % 0.4 % (0-3.0); LYMPH # 1.5 10^3/uL (1.5-4.5); LYMPH % 18.1 % (24.0-44.0); MEAN CORPUSCULAR HEMOGLOBIN 31.6 pg (27.0-33.0); MEAN CORPUSCULAR HGB CONC 34.9 g/dl (32.0-36.5); MEAN CORPUSCULAR VOLUME 90.5 fl (80.0-96.0); MONO # 0.9 10^3/uL (0.0-0.8); MONO % 11.6 % (0.0-5.0); NEUTROPHILS # 5.4 10^3/uL (1.8-7.7); PLATELET COUNT, AUTOMATED 227 10^3/uL (150-450); RED BLOOD COUNT 4.31 10^6/uL (4.00-5.40); RED CELL DISTRIBUTION WIDTH 11.9 % (11.5-14.5)
[2018-04-07] MEDS: NS 1,000 ML IV (19:58)
[2018-04-07 20:02] LABS: INR 1.01; PROTHROMBIN TIME 13.4 SECONDS (12.1-14.4)
[2018-04-07 20:22] LABS: ALBUMIN 3.5 GM/DL (3.2-5.2); ALBUMIN/GLOBULIN RATIO 1.09 (1.00-1.93); ALKALINE PHOSPHATASE 60 U/L (45-117); ALT/SGPT 53 U/L (12-78); ANION GAP 9 MEQ/L (8-16); AST/SGOT 24 U/L (7-37); BILIRUBIN,DIRECT < 0.1 MG/DL (0.0-0.2); BILIRUBIN,TOTAL 0.2 MG/DL (0.2-1.0); BLOOD UREA NITROGEN 14 MG/DL (7-18); CALCIUM LEVEL 8.7 MG/DL (8.8-10.2); CARBON DIOXIDE LEVEL 27 MEQ/L (21-32); CHLORIDE LEVEL 107 MEQ/L (98-107); CK-MB VALUE MASS 4.5 NG/ML (<3.6); CPK CREATINE PHOSPHOKINASE 196 U/L (26-192); CREATININE FOR GFR 0.83 MG/DL (0.55-1.30); GLOMERULAR FILTRATION RATE > 60.0 (>45); GLUCOSE, FASTING 203 MG/DL (70-100); MB/CK RELATIVE INDEX 2.29 (< OR =4); NT-PRO BNP 99 PG/ML (<125); SODIUM LEVEL 143 MEQ/L (136-145); TOTAL PROTEIN 6.7 GM/DL (6.4-8.2); TROPONIN I < 0.02 NG/ML (< 0.10)
[2018-04-07 22:36] LABS: CK-MB VALUE MASS 3.8 NG/ML (<3.6); CPK CREATINE PHOSPHOKINASE 163 U/L (26-192); MB/CK RELATIVE INDEX 2.33 (< OR =4); TROPONIN I 0.02 NG/ML (< 0.10)
[2018-04-10 14:28] LABS: LAMOTRIGINE (LAMICTAL) 3.5 ug/mL (2.0-20.0)
== END 2018-04-07 23:21 | disposition home or self-care (01) ==
LOC: M ED 18:00
DX: R07.89 Other chest pain (principal); I11.9 Hypertensive heart disease without heart failure; E11.9 Type 2 diabetes mellitus without complications; E78.5 Hyperlipidemia, unspecified; Z95.1 Presence of aortocoronary bypass graft; Z95.5 Presence of coronary angioplasty implant and graft; Z88.0 Allergy status to penicillin; Z88.7 Allergy status to serum and vaccine; Z79.899 Other long term (current) drug therapy; Z79.82 Long term (current) use of aspirin; Z79.84 Long term (current) use of oral hypoglycemic drugs
CPT/HCPCS: 71045

== ENCOUNTER → 2018-08-02 | Outpatient (CLI) | payer OTHER, MEDICAID ==
[2018-08-05 17:40] LABS: LAMOTRIGINE (LAMICTAL) 5.5 ug/mL (2.0-20.0)
== END ==
LOC: M LAB 09:32
DX: R56.9 Unspecified convulsions (principal)
CPT/HCPCS: 36415

== ENCOUNTER → 2018-08-30 | Outpatient (CLI) | payer OTHER, MEDICAID ==
[2018-08-30 07:40] LABS: BASO # 0.1 10^3/uL (0.0-0.2); BASO % 0.7 % (0.0-1.0); EOS # 0.2 10^3/uL (0.0-0.50); EOS % 1.8 % (0.0-3.0); HEMATOCRIT 44.1 % (36.0-47.0); HEMOGLOBIN 14.9 g/dl (12.0-15.5); IMMATURE GRANULOCYTE % 0.4 % (0-3.0); LYMPH # 1.9 10^3/uL (1.5-4.5); MEAN CORPUSCULAR HEMOGLOBIN 31.3 pg (27.0-33.0); MEAN CORPUSCULAR HGB CONC 33.8 g/dl (32.0-36.5); MEAN CORPUSCULAR VOLUME 92.6 fl (80.0-96.0); MONO % 12.4 % (0.0-5.0); NEUTROPHILS # 5.3 10^3/uL (1.8-7.7); NEUTROPHILS % 62.7 % (36.0-66.0); PLATELET COUNT, AUTOMATED 261 10^3/uL (150-450); RED BLOOD COUNT 4.76 10^6/uL (4.00-5.40); RED CELL DISTRIBUTION WIDTH 11.7 % (11.5-14.5); WHITE BLOOD COUNT 8.4 10^3/uL (4.0-10.0)
[2018-08-30 07:58] LABS: ALBUMIN 3.7 GM/DL (3.2-5.2); ALBUMIN/GLOBULIN RATIO 1.16 (1.00-1.93); ALKALINE PHOSPHATASE 57 U/L (45-117); ALT/SGPT 46 U/L (12-78); ANION GAP 5 MEQ/L (8-16); AST/SGOT 24 U/L (7-37); BILIRUBIN,TOTAL 0.4 MG/DL (0.2-1.0); BLOOD UREA NITROGEN 15 MG/DL (7-18); CALCIUM LEVEL 9.2 MG/DL (8.8-10.2); CARBON DIOXIDE LEVEL 29 MEQ/L (21-32); CHLORIDE LEVEL 101 MEQ/L (98-107); CHOLESTEROL LEVEL 117 MG/DL (<200); CHOLESTEROL RISK RATIO 2.785 (<5); CREATININE FOR GFR 0.91 MG/DL (0.55-1.30); GLOMERULAR FILTRATION RATE > 60.0 (>39); GLUCOSE, FASTING 100 MG/DL (70-100); HDL CHOLESTEROL 42 MG/DL (>40); LDL CHOLESTEROL 44 MG/DL (<100); NON-HDL-C 75 MG/DL; POTASSIUM SERUM 4.6 MEQ/L (3.5-5.1); SODIUM LEVEL 135 MEQ/L (136-145); TOTAL PROTEIN 6.9 GM/DL (6.4-8.2); TRIGLYCERIDES LEVEL 153 MG/DL (<150)
[2018-08-30 09:52] LABS: PTH INTACT 25.3 PG/ML (18.5-88.0); TOTAL 25(OH) VITAMIN D 43.1 NG/ML (30.0-100.0)
[2018-08-30 12:08] LABS: ESTIMATED AVERAGE GLUCOSE 154 MG/DL (60-110)
== END ==
LOC: M LAB 07:02
DX: E11.9 Type 2 diabetes mellitus without complications (principal); I10 Essential (primary) hypertension; E55.9 Vitamin D deficiency, unspecified; E78.5 Hyperlipidemia, unspecified
CPT/HCPCS: 83735

== ENCOUNTER → 2018-09-15 | Outpatient (CLI) | payer OTHER | LOC: M WHC 08:15 | DX: Z12.31 Encounter for screening mammogram for malignant neoplasm of breast (principal); M81.0 Age-related osteoporosis without current pathological fracture; Z85.3 Personal history of malignant neoplasm of breast | CPT/HCPCS: 77067 ==

== ENCOUNTER 2018-12-02 04:59 | Emergency (ER) | payer MEDICARE, OTHER ==
[~2018-12-02] VITALS: Ht 149.9 cm; Wt 62.7 kg
[~2018-12-02 04:59] MED LIST changes: +AMLO5TAB6; +AMLO5TAB6 PO; +ASPI1TAB PO; +ASPI1TAB15 PO; +BRIL90TA; +BRIL90TA PO; +CARB10TACH PO; +CARB20TA PO; +CRES20TA PO; +ECOT325T5; +HYDR10TA3; +IBAN150T6 PO; +ISOS120T4; +ISOS120T4 PO; +LAMO100T; +LISI10TA4 PO; +LISI30TA3; +LOPR1TAB6 PO; +LOPR50TA; +LORA2TAB9; +LORA2TAB9 PO; +METF500T13; +METO100T5 PO; +NITR0.4S14; +NITR4TASL SL; +PRIL20CA; +RANO5TAB PO; +ROSU20TA4; -SLF 3 ML SYR IV; +TEGR100C; +THERGRAN; +ULTR50TA8 PO; +VITA10002 PO; +VITA50005; +VITA50005 PO; +[UNRECOGNIZED DRUG - CODE]
[2018-12-02] MEDS ORDERED: ALEN70TA57 PO (05:20)
[2018-12-02] MEDS ORDERED: CALC-210 PO (05:20)
[2018-12-02 05:23] LABS: BASO % 0.6 % (0.0-1.0); EOS # 0.2 10^3/uL (0.0-0.50); EOS % 2.8 % (0.0-3.0); HEMATOCRIT 45.8 % (36.0-47.0); HEMOGLOBIN 15.9 g/dl (12.0-15.5); LYMPH # 2.2 10^3/uL (1.5-4.5); LYMPH % 34.2 % (24.0-44.0); MEAN CORPUSCULAR HEMOGLOBIN 31.7 pg (27.0-33.0); MEAN CORPUSCULAR HGB CONC 34.7 g/dl (32.0-36.5); MEAN CORPUSCULAR VOLUME 91.4 fl (80.0-96.0); MONO # 0.8 10^3/uL (0.0-0.8); MONO % 11.9 % (0.0-5.0); NEUTROPHILS # 3.2 10^3/uL (1.8-7.7); NEUTROPHILS % 50.2 % (36.0-66.0); PLATELET COUNT, AUTOMATED 249 10^3/uL (150-450); RED BLOOD COUNT 5.01 10^6/uL (4.00-5.40); WHITE BLOOD COUNT 6.4 10^3/uL (4.0-10.0)
[2018-12-02 05:48] LABS: BLOOD UREA NITROGEN 14 MG/DL (7-18); CALCIUM LEVEL 8.9 MG/DL (8.8-10.2); CARBON DIOXIDE LEVEL 25 MEQ/L (21-32); CHLORIDE LEVEL 104 MEQ/L (98-107); CPK CREATINE PHOSPHOKINASE 103 U/L (26-192); CREATININE FOR GFR 0.91 MG/DL (0.55-1.30); GLOMERULAR FILTRATION RATE > 60.0 (>39); GLUCOSE, FASTING 153 MG/DL (70-100); MB/CK RELATIVE INDEX 2.14 (< OR =4); POTASSIUM SERUM 3.9 MEQ/L (3.5-5.1); SODIUM LEVEL 137 MEQ/L (136-145); TROPONIN I < 0.02 NG/ML (< 0.10)
--- NOTE | 2018-12-02 05:59 | REP ---
Clinical: Acute chest pain . Comparison: 04/07/2018 . Findings: The mediastinum and cardiac silhouette are stable and within normal limits for portable technique. Evidence of prior sternotomy and CABG. The lung charles are clear without acute consolidation, effusion, or pneumothorax. Skeletal structures are intact. Impression: No acute cardiopulmonary process appreciated. Electronically Signed by Jean Marie Ye MD 12/02/2018 05:51 A
[2018-12-02] MEDS ORDERED: ASPIRIN 81 MG CHEW TABLET PO ONE (06:15)
[2018-12-02] MEDS ORDERED: amLODIPine 5 MG TAB PO ONE (07:45)
[2018-12-02] MEDS ORDERED: LISINOPRIL 20 MG TAB PO ONE (07:45)
[2018-12-02] MEDS ORDERED: METOPROLOL TART 50 MG TAB PO ONE (07:45)
[2018-12-02 08:02] VITALS: BP 174/76
--- NOTE | 2018-12-02 08:22 | ECGEPIP ---
Stationary ECG Study [facility] - ED Test Date: 2018-12-02 Pat Name: MAXIMILIAN RUIZ Department: Room: - Gender: F Feather Renovator: : 1950 Requested By: JANET Miller Order Number: [id number] Reading MD: Clement Fleming Measurements Intervals [place] Rate: 74 P: 36 CO: 140 QRS: 67 QRSD: 112 T: 29 QT: 397 QTc: 442 Interpretive Statements SINUS RHYTHM INCOMPLETE RIGHT BUNDLE BRANCH BLOCK SIMILAR TO 04/07/18 Electronically Signed On 12-02-2018 8:21:53 EST by Clement Fleming
[2018-12-02 09:15] VITALS: BP 140/64
[2018-12-02 10:43] LABS: CPK CREATINE PHOSPHOKINASE 80 U/L (26-192); MB/CK RELATIVE INDEX 2.12 (< OR =4); TROPONIN I < 0.02 NG/ML (< 0.10)
--- NOTE | 2018-12-02 18:05 | ECGEPIP ---
Stationary ECG Study [facility] - ED Test Date: 2018-12-02 Pat Name: MAXIMILIAN RUIZ Department: Room: - Gender: F Starchmaker: SB : 1950 Requested By: JANET Miller Order Number: [id number] Reading MD: Clement Fleming Measurements Intervals [place] Rate: 55 P: 28 DC: 180 QRS: 57 QRSD: 102 T: 54 QT: 435 QTc: 419 Interpretive Statements SINUS BRADYCARDIA INCOMPLETE RIGHT BUNDLE BRANCH BLOCK BASELINE ARTIFACT AFFECTS INTERPRETATION SIMILAR TO PRIOR ON SAME DATE Electronically Signed On 12-02-2018 18:05:24 EST by Clement Fleming
== END 2018-12-02 11:57 | disposition home or self-care (01) ==
LOC: M ED 04:59
DX: R07.9 Chest pain, unspecified (principal); I45.19 Other right bundle-branch block; R00.1 Bradycardia, unspecified; I25.10 Atherosclerotic heart disease of native coronary artery without angina pectoris; E11.9 Type 2 diabetes mellitus without complications; I10 Essential (primary) hypertension; Z95.5 Presence of coronary angioplasty implant and graft; Z95.1 Presence of aortocoronary bypass graft; Z79.84 Long term (current) use of oral hypoglycemic drugs; Z79.899 Other long term (current) drug therapy; Z88.0 Allergy status to penicillin; Z88.7 Allergy status to serum and vaccine

== ENCOUNTER → 2018-12-08 | Outpatient (CLI) | payer MEDICARE, MEDICAID ==
[~2018-12-08] MED LIST changes: +ALEN70TA57 PO; +CALC-210 PO
[2018-12-08 08:55] LABS: FOLATE 10.7 NG/ML; TOTAL 25(OH) VITAMIN D 35.4 NG/ML (30.0-100.0)
== END ==
LOC: M LAB 07:13
PROVIDERS: ATTEND Physician Assistant Medical
DX: R56.9 Unspecified convulsions (principal); E55.9 Vitamin D deficiency, unspecified; E53.8 Deficiency of other specified B group vitamins

== ENCOUNTER → 2018-12-08 | Outpatient (CLI) | payer MEDICARE, MEDICAID ==
[2018-12-08 08:03] LABS: BASO % 0.6 % (0.0-1.0); EOS # 0.4 10^3/uL (0.0-0.50); EOS % 5.5 % (0.0-3.0); HEMATOCRIT 44.9 % (36.0-47.0); HEMOGLOBIN 15.3 g/dl (12.0-15.5); LYMPH # 1.4 10^3/uL (1.5-4.5); LYMPH % 20.3 % (24.0-44.0); MEAN CORPUSCULAR HEMOGLOBIN 31.4 pg (27.0-33.0); MEAN CORPUSCULAR HGB CONC 34.1 g/dl (32.0-36.5); MEAN CORPUSCULAR VOLUME 92.2 fl (80.0-96.0); MONO # 0.8 10^3/uL (0.0-0.8); MONO % 10.9 % (0.0-5.0); NEUTROPHILS # 4.4 10^3/uL (1.8-7.7); NEUTROPHILS % 62.3 % (36.0-66.0); PLATELET COUNT, AUTOMATED 263 10^3/uL (150-450); RED BLOOD COUNT 4.87 10^6/uL (4.00-5.40); WHITE BLOOD COUNT 7.1 10^3/uL (4.0-10.0)
[2018-12-08 08:22] LABS: MALB URINE SIEMENS 25.4 MG/L; MAU/CREAT RATIO 23.7 MCG/MG (0.0-30.0)
[2018-12-08 08:27] LABS: ALT/SGPT 40 U/L (12-78); BILIRUBIN,TOTAL 0.3 MG/DL (0.2-1.0); BLOOD UREA NITROGEN 16 MG/DL (7-18); CARBON DIOXIDE LEVEL 28 MEQ/L (21-32); CHLORIDE LEVEL 105 MEQ/L (98-107); CHOLESTEROL LEVEL 131 MG/DL (<200); CHOLESTEROL RISK RATIO 2.729 (<5); CPK CREATINE PHOSPHOKINASE 76 U/L (26-192); CREATININE FOR GFR 0.83 MG/DL (0.55-1.30); GLOMERULAR FILTRATION RATE > 60.0 (>39); GLUCOSE, FASTING 139 MG/DL (70-100); HDL CHOLESTEROL 48 MG/DL (>40); LDL CHOLESTEROL 58 MG/DL (<100); MAGNESIUM LEVEL 2.2 MG/DL (1.8-2.4); NON-HDL-C 83 MG/DL; POTASSIUM SERUM 4.6 MEQ/L (3.5-5.1); SODIUM LEVEL 139 MEQ/L (136-145); TOTAL PROTEIN 7.3 GM/DL (6.4-8.2); TRIGLYCERIDES LEVEL 125 MG/DL (<150)
[2018-12-08 08:55] LABS: PTH INTACT 45.5 PG/ML (18.5-88.0)
[2018-12-08 09:37] LABS: HEMOGLOBIN A1c 6.7 %
[2018-12-09 14:19] LABS: CREATININE, URINE 109.8 mg/dL (20.0-300.0)
== END ==
LOC: M LAB 07:18
PROVIDERS: ATTEND Nurse Practitioner Family
DX: I10 Essential (primary) hypertension (principal); E78.5 Hyperlipidemia, unspecified; E11.9 Type 2 diabetes mellitus without complications; E55.9 Vitamin D deficiency, unspecified; F41.0 Panic disorder [episodic paroxysmal anxiety]; R56.9 Unspecified convulsions; E53.8 Deficiency of other specified B group vitamins

== ENCOUNTER → 2018-12-09 | Outpatient (CLI) | payer MEDICARE ==
--- NOTE | 2018-12-09 15:23 | REP ---
Clinical: History of transient ischemic attacks and cerebral infarctions prior carotid endarterectomy. Technique: Freeman scale and color Doppler evaluation using linear high frequency transducer Findings: Two-dimensional freeman scale and color images demonstrate postsurgical changes of the carotid arteries with areas of linear echogenicity along the lumen and ring down artifact likely at the area of prior procedures and clips. Color evaluation demonstrates intimal thickening to the bilateral common carotid arteries as well as mixed atheromatous plaque at the proximal right internal carotid artery with minimal visible narrowing noted as well as mixed atheromatous plaque causing near complete occlusion of the left external carotid artery and areas of plaque at the left carotid bulb and proximal internal carotid artery causing mild turbulent flow and minimal narrowing. Right vertebral artery demonstrates subtle reversal of flow and loss of diastolic component while the left vertebral artery demonstrates an asymmetric increased diastolic component suggesting element of steal syndrome. RIGHT (cm/s) LEFT (cm/s) ICA peak systolic velocity 95.3 126.0 ICA diastolic velocity 7.7 19.8 ECA peak systolic velocity 179.0 17.2 CCA peak systolic velocity 118.0 110.8 ICA/CCA ratio 0.81 1.14 Impression: Visible findings are more compelling than documented velocities and demonstrate presumed near 70% occlusion of the left external carotid artery as well as narrowing to the right and left internal carotid arteries likely within the less than 50% range. The Electronically Signed by Jean Marie Ye MD 12/09/2018 03:14 P
== END ==
LOC: M RAD 12:54
PROVIDERS: ATTEND Physician Assistant Medical
DX: I65.23 Occlusion and stenosis of bilateral carotid arteries (principal); Z86.73 Personal history of transient ischemic attack (TIA), and cerebral infarction without residual deficits

== ENCOUNTER → 2019-03-29 | Outpatient (REF) | payer MEDICARE ==
[~2019-03-29] MED LIST changes: -ALEN70TA57 PO; +ALEN70TA74 PO; -ASPI1TAB PO; +ASPI81TA26 PO; -CALC-210 PO; +CALC-239 PO; -CRES20TA PO; +CRES20TA2 PO; -ISOS120T4; -ISOS120T4 PO; +ISOS120T7; +ISOS120T7 PO
== END ==
LOC: M LABNEURO 08:33
PROVIDERS: ATTEND Physician Assistant Medical
DX: R56.9 Unspecified convulsions (principal)

== ENCOUNTER → 2019-04-21 | Outpatient (CLI) | payer MEDICARE ==
[~2019-04-21] MED LIST changes: +CYAN100049 PO; +RANO500T7 PO; -RANO5TAB PO; -ROSU20TA4; +ROSU20TA5; -VITA10002 PO
[2019-04-21 07:17] LABS: BASO # 0.1 10^3/uL (0.0-0.2); BASO % 0.9 % (0.0-1.0); EOS # 0.3 10^3/uL (0.0-0.50); EOS % 3.3 % (0.0-3.0); HEMATOCRIT 44.6 % (36.0-47.0); HEMOGLOBIN 14.9 g/dl (12.0-15.5); LYMPH # 1.5 10^3/uL (1.5-4.5); LYMPH % 20.1 % (24.0-44.0); MEAN CORPUSCULAR HEMOGLOBIN 31.3 pg (27.0-33.0); MEAN CORPUSCULAR HGB CONC 33.4 g/dl (32.0-36.5); MEAN CORPUSCULAR VOLUME 93.7 fl (80.0-96.0); MONO # 0.9 10^3/uL (0.0-0.8); MONO % 12.2 % (0.0-5.0); NEUTROPHILS # 4.8 10^3/uL (1.8-7.7); PLATELET COUNT, AUTOMATED 259 10^3/uL (150-450); RED BLOOD COUNT 4.76 10^6/uL (4.00-5.40); WHITE BLOOD COUNT 7.6 10^3/uL (4.0-10.0)
[2019-04-21 07:35] LABS: HEMOGLOBIN A1c 7.2 %
[2019-04-21 07:48] LABS: ALBUMIN 3.9 GM/DL (3.2-5.2); ALT/SGPT 45 U/L (12-78); BILIRUBIN,TOTAL 0.4 MG/DL (0.2-1.0); BLOOD UREA NITROGEN 12 MG/DL (7-18); CALCIUM LEVEL 8.8 MG/DL (8.8-10.2); CARBON DIOXIDE LEVEL 26 MEQ/L (21-32); CHLORIDE LEVEL 106 MEQ/L (98-107); CHOLESTEROL LEVEL 108 MG/DL (<200); CHOLESTEROL RISK RATIO 2.117 (<5); CREATININE FOR GFR 0.84 MG/DL (0.55-1.30); GLOMERULAR FILTRATION RATE > 60.0 (>39); GLUCOSE, FASTING 145 MG/DL (70-100); HDL CHOLESTEROL 51 MG/DL (>40); LDL CHOLESTEROL 32 MG/DL (<100); MAGNESIUM LEVEL 2.1 MG/DL (1.8-2.4); NON-HDL-C 57 MG/DL; POTASSIUM SERUM 4.3 MEQ/L (3.5-5.1); SODIUM LEVEL 141 MEQ/L (136-145); TOTAL PROTEIN 7.2 GM/DL (6.4-8.2); TRIGLYCERIDES LEVEL 125 MG/DL (<150)
[2019-04-21 09:57] LABS: PTH INTACT 36.6 PG/ML (18.5-88.0); TOTAL 25(OH) VITAMIN D 46.7 NG/ML (30.0-100.0)
== END ==
LOC: M LAB 06:42
PROVIDERS: ATTEND Nurse Practitioner Family
DX: I10 Essential (primary) hypertension (principal); E78.5 Hyperlipidemia, unspecified; E11.9 Type 2 diabetes mellitus without complications; E55.9 Vitamin D deficiency, unspecified

== ENCOUNTER → 2019-04-27 | Outpatient (REF) | payer MEDICARE ==
[2019-04-28 14:07] LABS: CREATININE, URINE 28.6 mg/dL (20.0-300.0)
== END ==
LOC: M SFHCPLAZ 11:08
PROVIDERS: ATTEND Nurse Practitioner Family
DX: F41.0 Panic disorder [episodic paroxysmal anxiety] (principal); R56.9 Unspecified convulsions
CPT/HCPCS: 80307; G0463

== ENCOUNTER → 2019-06-15 | Outpatient (REF) | payer MEDICARE ==
[~2019-06-15] MED LIST changes: +ACET500T15 PO; +CIPR-249 PO; +FLAG500T PO; -LAMO100T; +LAMO100T3 PO; +LORA2TAB14; +LORA2TAB14 PO; -LORA2TAB9; -LORA2TAB9 PO; +METF500T13 PO; +NORC1TAB7 PO; +VITA1CAP25 PO; +ZOFR4TAB16 PO
[2019-06-20 14:30] LABS: Benzodiazepines Negative (Cutoff=300)
== END ==
LOC: M SFHCPLAZ 08:09
PROVIDERS: ATTEND Nurse Practitioner Family
DX: F41.0 Panic disorder [episodic paroxysmal anxiety] (principal); Z79.899 Other long term (current) drug therapy

== ENCOUNTER → 2019-07-21 | Outpatient (REF) | payer MEDICARE ==
[~2019-07-21] MED LIST changes: -ACET500T15 PO; -CIPR-249 PO; -FLAG500T PO; +LAMO100T; -LAMO100T3 PO; -LORA2TAB14; -LORA2TAB14 PO; +LORA2TAB9; +LORA2TAB9 PO; -METF500T13 PO; -NORC1TAB7 PO; -VITA1CAP25 PO; -ZOFR4TAB16 PO
== END ==
LOC: M LABNEURO 08:40
PROVIDERS: ATTEND Physician Assistant Medical
DX: R56.9 Unspecified convulsions (principal)

== ENCOUNTER → 2019-08-03 | Outpatient (CLI) | payer MEDICARE, MEDICAID ==
--- NOTE | 2019-08-03 16:09 | REP ---
CT brain: 08/03/2019. Indication: Stroke. Comparison: 03/06/2017. Technique: Unenhanced axial CT images of the brain were obtained from skull base to vertex. Findings: There is no acute intracranial hemorrhage, acute cortical infarction, mass effect or hydrocephalous. Mild diffuse volume loss is present. Chronic-appearing left caudate head lacunar infarction is present. There are a few patchy areas of white matter hypoattenuation within the cerebral hemispheres which is a nonspecific finding, but likely represent sequelae of chronic small vessel disease. Impression: No acute intracranial process. Chronic small vessel disease. Electronically Signed by Reji Díaz DO 08/03/2019 04:01 P
== END ==
LOC: M RAD 15:13
PROVIDERS: ATTEND Physician Assistant Medical
DX: I73.9 Peripheral vascular disease, unspecified (principal); R55 Syncope and collapse; Z86.73 Personal history of transient ischemic attack (TIA), and cerebral infarction without residual deficits; G40.009 Localization-related (focal) (partial) idiopathic epilepsy and epileptic syndromes with seizures of localized onset, not intractable, without status epilepticus

== ENCOUNTER → 2019-08-25 | Outpatient (CLI) | payer MEDICARE, MEDICAID ==
[2019-08-25 07:53] LABS: BASO # 0.1 10^3/uL (0.0-0.2); BASO % 0.9 % (0.0-1.0); EOS # 0.1 10^3/uL (0.0-0.5); HEMATOCRIT 45.9 % (36.0-47.0); HEMOGLOBIN 15.1 g/dl (12.0-15.5); LYMPH # 1.5 10^3/uL (1.5-5.0); LYMPH % 22.2 % (24.0-44.0); MEAN CORPUSCULAR HEMOGLOBIN 31.5 pg (27.0-33.0); MEAN CORPUSCULAR HGB CONC 32.9 g/dl (32.0-36.5); MEAN CORPUSCULAR VOLUME 95.8 fl (80.0-96.0); MONO # 0.9 10^3/uL (0.0-0.8); MONO % 12.6 % (0.0-5.0); NEUTROPHILS # 4.3 10^3/uL (1.5-8.5); PLATELET COUNT, AUTOMATED 248 10^3/uL (150-450); RED BLOOD COUNT 4.79 10^6/uL (4.00-5.40); WHITE BLOOD COUNT 6.9 10^3/uL (4.0-10.0)
[2019-08-25 08:31] LABS: ALBUMIN 3.9 GM/DL (3.2-5.2); ALT/SGPT 49 U/L (12-78); BILIRUBIN,TOTAL 0.4 MG/DL (0.2-1.0); BLOOD UREA NITROGEN 9 MG/DL (7-18); CALCIUM LEVEL 9.3 MG/DL (8.8-10.2); CARBON DIOXIDE LEVEL 30 MEQ/L (21-32); CHLORIDE LEVEL 107 MEQ/L (98-107); CHOLESTEROL LEVEL 113 MG/DL (<200); CHOLESTEROL RISK RATIO 2.132 (<5); CREATININE FOR GFR 0.87 MG/DL (0.55-1.30); FREE T4 0.87 NG/DL (0.76-1.46); GLOMERULAR FILTRATION RATE > 60.0 (>39); GLUCOSE, FASTING 139 MG/DL (70-100); HDL CHOLESTEROL 53 MG/DL (>40); LDL CHOLESTEROL 40 MG/DL (<100); NON-HDL-C 60 MG/DL; POTASSIUM SERUM 4.7 MEQ/L (3.5-5.1); SODIUM LEVEL 143 MEQ/L (136-145); TOTAL PROTEIN 7.2 GM/DL (6.4-8.2); TRIGLYCERIDES LEVEL 100 MG/DL (<150)
[2019-08-25 08:33] LABS: CREATININE, URINE 99.8 MG/DL; MALB URINE SIEMENS 23.6 MG/L; MAU/CREAT RATIO 23.6 MCG/MG (0.0-30.0)
== END ==
LOC: M LAB 06:58
PROVIDERS: ATTEND Nurse Practitioner Family
DX: E78.5 Hyperlipidemia, unspecified (principal); E11.9 Type 2 diabetes mellitus without complications; I10 Essential (primary) hypertension

== ENCOUNTER → 2019-08-31 | Outpatient (REF) | payer MEDICARE, MEDICAID | LOC: M SFHCPLAZ 11:45 | PROVIDERS: ATTEND Nurse Practitioner Family | DX: F41.0 Panic disorder [episodic paroxysmal anxiety] (principal); R56.9 Unspecified convulsions ==

== ENCOUNTER 2019-09-12 19:48 | Emergency (ER) | payer MEDICAID, MEDICARE ==
[~2019-09-12] VITALS: Ht 149.9 cm; Wt 64.1 kg
[~2019-09-12 19:48] MED LIST changes: -LAMO100T; +LAMO100T3
[2019-09-12] MEDS ORDERED: KETOROLAC 30 MG/ML VIAL (J1885) IV ONE (20:45)
[2019-09-12] MEDS ORDERED: NS 1,000 ML IV ONE (20:45)
[2019-09-12] MEDS ORDERED: ONDANSETRON 4MG/2ML VIAL (J2405) IV ONE (20:45)
[2019-09-12] MEDS ORDERED: PANTOPRAZOLE 40MG INJ (PROTONIX) (C9113) IV ONE (20:45)
[2019-09-12 21:03] LABS: BASO # 0.1 10^3/uL (0.0-0.2); BASO % 0.5 % (0.0-1.0); EOS # 0.2 10^3/uL (0.0-0.5); EOS % 1.4 % (0.0-3.0); HEMATOCRIT 46.6 % (36.0-47.0); HEMOGLOBIN 15.4 g/dl (12.0-15.5); LYMPH # 1.5 10^3/uL (1.5-5.0); LYMPH % 13.2 % (24.0-44.0); MEAN CORPUSCULAR HEMOGLOBIN 31.3 pg (27.0-33.0); MEAN CORPUSCULAR VOLUME 94.7 fl (80.0-96.0); MONO # 1.1 10^3/uL (0.0-0.8); MONO % 9.7 % (0.0-5.0); NEUTROPHILS # 8.3 10^3/uL (1.5-8.5); NEUTROPHILS % 74.7 % (36.0-66.0); PLATELET COUNT, AUTOMATED 248 10^3/uL (150-450); RED BLOOD COUNT 4.92 10^6/uL (4.00-5.40)
[2019-09-12 21:14] LABS: INR 1.03; PROTHROMBIN TIME 13.2 SECONDS (11.8-14.0)
[2019-09-12 21:32] LABS: ALT/SGPT 141 U/L (12-78); AMYLASE 52 U/L (25-115); BILIRUBIN,DIRECT 0.7 MG/DL (0.0-0.2); BILIRUBIN,TOTAL 1.1 MG/DL (0.2-1.0); BLOOD UREA NITROGEN 16 MG/DL (7-18); CALCIUM LEVEL 9.6 MG/DL (8.8-10.2); CARBON DIOXIDE LEVEL 28 MEQ/L (21-32); CHLORIDE LEVEL 101 MEQ/L (98-107); CREATININE FOR GFR 0.84 MG/DL (0.55-1.30); GLOMERULAR FILTRATION RATE > 60.0 (>39); GLUCOSE, FASTING 156 MG/DL (70-100); LIPASE 120 U/L (73-393); POTASSIUM SERUM 4.3 MEQ/L (3.5-5.1); SODIUM LEVEL 137 MEQ/L (136-145); TOTAL PROTEIN 7.6 GM/DL (6.4-8.2)
--- NOTE | 2019-09-12 22:26 | REPVR ---
PROCEDURE INFORMATION: Exam: US Abdomen Limited, Right Upper Quadrant Exam date and time: 09/12/2019 9:30 PM Age: 69 years old Clinical history: Abdominal pain; Acute; Additional info: Ruq pain TECHNIQUE: Imaging protocol: Real-time ultrasound of the abdomen with image documentation. Examination was focused on the right upper quadrant. COMPARISON: No relevant prior studies available. FINDINGS: Liver: Fatty infiltration of liver with focal fatty screening your gallbladder fossa. Gallbladder: Large echogenic focus with shadowing measuring 3 cm likely large gallstone. Gallbladder wall is thickened measuring 3.5 mm. No pericholecystic fluid. Common bile duct: Common bile duct is normal measuring 6 mm. Pancreas: Visualized pancreas is unremarkable. Right kidney: Right kidney is unremarkable measuring 11.7 cm. Intraperitoneal space: No free air. IMPRESSION: Fatty liver. Large echogenic focus with shadowing measuring 3 cm likely large gallstone. Gallbladder wall is thickened measuring 3.5 mm. No pericholecystic fluid. Findings may represent acute cholecystitis, clinical correlation is recommended. Normal CBC. Electronically signed by: Frieda Hernandez On 09/12/2019 22:25:45 PM
[2019-09-12] MEDS ORDERED: PERCOCET 5MG/325MG TAB PO ONE (22:45)
[2019-09-12] MEDS ORDERED: ZOFR4TAB16 PO (23:08)
[2019-09-12] MEDS ORDERED: FLAG500T PO (23:08)
[2019-09-12] MEDS ORDERED: CIPR-249 PO (23:08)
[2019-09-12] MEDS ORDERED: NORC1TAB7 PO (23:08)
[2019-09-12] MEDS ORDERED: metroNIDAZOLE (FLAGYL) 500 MG TAB PO ONE (23:15)
[2019-09-12] MEDS ORDERED: CIPROFLOXACIN 500 MG TAB PO ONE (23:15)
[2019-09-12] MEDS ORDERED: NORCO 5/325MG TABLET (BULK FOR ED) PO ONE (23:15)
[2019-09-12 23:20] VITALS: BP 151/67
== END 2019-09-12 23:41 | disposition home or self-care (01) ==
LOC: M ED 19:48
DX: K81.9 Cholecystitis, unspecified (principal); K76.0 Fatty (change of) liver, not elsewhere classified; E11.9 Type 2 diabetes mellitus without complications; I11.9 Hypertensive heart disease without heart failure; Z79.82 Long term (current) use of aspirin; Z79.84 Long term (current) use of oral hypoglycemic drugs; Z79.899 Other long term (current) drug therapy; Z88.0 Allergy status to penicillin; Z88.7 Allergy status to serum and vaccine
CPT/HCPCS: 76705; 80048; 80076; 81001; 82150; 83690; 85025; 85610; 96361; 96374; 96375; 99284; C9113; J1885; J2405

== ENCOUNTER → 2019-09-14 | Outpatient (REF) | payer MEDICARE ==
[~2019-09-14] MED LIST changes: +CIPR-249 PO; +FLAG500T PO; +NORC1TAB7 PO; +ZOFR4TAB16 PO
[2019-09-14 13:16] LABS: BASO % 0.6 % (0.0-1.0); EOS # 0.1 10^3/uL (0.0-0.5); EOS % 1.8 % (0.0-3.0); HEMATOCRIT 47.4 % (36.0-47.0); HEMOGLOBIN 15.3 g/dl (12.0-15.5); LYMPH # 1.2 10^3/uL (1.5-5.0); LYMPH % 18.3 % (24.0-44.0); MEAN CORPUSCULAR HEMOGLOBIN 31.3 pg (27.0-33.0); MEAN CORPUSCULAR HGB CONC 32.3 g/dl (32.0-36.5); MEAN CORPUSCULAR VOLUME 96.9 fl (80.0-96.0); MONO # 0.6 10^3/uL (0.0-0.8); MONO % 8.8 % (0.0-5.0); NEUTROPHILS # 4.7 10^3/uL (1.5-8.5); NEUTROPHILS % 70.2 % (36.0-66.0); PLATELET COUNT, AUTOMATED 259 10^3/uL (150-450); RED BLOOD COUNT 4.89 10^6/uL (4.00-5.40); WHITE BLOOD COUNT 6.7 10^3/uL (4.0-10.0)
[2019-09-14 13:25] LABS: ALBUMIN 4.3 GM/DL (3.2-5.2); ALT/SGPT 200 U/L (12-78); BLOOD UREA NITROGEN 8 MG/DL (7-18); CALCIUM LEVEL 9.3 MG/DL (8.8-10.2); CARBON DIOXIDE LEVEL 29 MEQ/L (21-32); CHLORIDE LEVEL 104 MEQ/L (98-107); CREATININE FOR GFR 0.86 MG/DL (0.55-1.30); GLOMERULAR FILTRATION RATE > 60.0 (>39); GLUCOSE, FASTING 123 MG/DL (70-100); POTASSIUM SERUM 4.6 MEQ/L (3.5-5.1); SODIUM LEVEL 137 MEQ/L (136-145); TOTAL PROTEIN 7.5 GM/DL (6.4-8.2)
== END ==
LOC: M SFHCPLAZ 09:02
PROVIDERS: ATTEND Nurse Practitioner Family
DX: K81.9 Cholecystitis, unspecified (principal)

== ENCOUNTER → 2019-09-29 | Outpatient (CLI) | payer MEDICARE ==
[2019-09-29 17:35] LABS: ALBUMIN 4.4 GM/DL (3.2-5.2); BILIRUBIN,DIRECT 0.2 MG/DL (0.0-0.2); BILIRUBIN,TOTAL 0.4 MG/DL (0.2-1.0); TOTAL PROTEIN 7.7 GM/DL (6.4-8.2)
== END ==
LOC: M PLALAB 12:52
PROVIDERS: ATTEND Family Medicine
DX: K80.20 Calculus of gallbladder without cholecystitis without obstruction (principal)

== ENCOUNTER → 2019-10-14 | Outpatient (CLI) | payer MEDICARE ==
[~2019-10-14] MED LIST changes: +ACET500T15 PO; -LAMO100T3; +LAMO100T3 PO; +METF500T13 PO; +VITA1CAP25 PO
--- NOTE | 2019-10-14 15:11 | REPMRS ---
Patient History The patient states she has not had a clinical breast exam in over a year. Family history of breast cancer at age 50 or over in sister. Digital Woman Screen Mammo: October 14, 2019 - Exam #: [id number] Bilateral CC and MLO view(s) were taken. Technologist: Kandace Mondragon, Technologist Prior study comparison: September 15, 2018, bilateral digital woman screen mammo performed at [facility]. May 21, 2017, bilateral digital woman screen mammo, performed at [facility]. 2016, bilateral digital mammo screening bilat, performed at [facility]. FINDINGS: The breast tissue is heterogeneously dense. This may lower the sensitivity of mammography. There is a moderate amount of heterogeneously dense fibroglandular tissue which is fairly symmetric. There is no interval development of dominant mass, architectural distortion, or grouped microcalcification typical of malignancy. There has been no change in the appearance of the mammogram from the prior studies. 3-D tomosynthesis shows no additional findings. Assessment: BI-RADS/ACR category 1 mammogram. Negative Mammogram. Recommendation Routine screening mammogram of both breasts in 1 year (for women over age 40). This patient's Lifetime Breast Cancer RIsk is estimated at 7.1 %. This mammogram was interpreted with the aid of an FDA-approved computer-aided dectection system. Electronically Signed By: Aden Hall MD 10/14/19 [id number]
== END ==
LOC: M WHC 13:51
PROVIDERS: ATTEND Nurse Practitioner Family
DX: Z12.31 Encounter for screening mammogram for malignant neoplasm of breast (principal); Z80.3 Family history of malignant neoplasm of breast

== ENCOUNTER 2019-10-18 08:27 | Day surgery (SDC) | payer MEDICARE ==
[~2019-10-18] VITALS: Ht 149.9 cm; Wt 62.6 kg
[~2019-10-18 08:27] MED LIST changes: +LIDOCAINE 1% MDV 20ML VIAL SQ PRN; +LR 1,000 ML IV ONE
[2019-10-18] MEDS ORDERED: SUGAMMADEX SODIUM 500 MG/5 ML VIAL (BRIDION) As Ordered ONE (09:32)
[2019-10-18] MEDS ORDERED: ROCURONIUM BROMIDE 50 MG/5 ML VIAL As Ordered ONE (09:35)
[2019-10-18] MEDS ORDERED: PROPOFOL 200 MG/20 ML VIAL As Ordered ONE (09:35)
[2019-10-18] MEDS ORDERED: fentaNYL 100 MCG/2 ML INJECTION (J3010) As Ordered ONE ×2 (09:35→11:48)
[2019-10-18] MEDS ORDERED: dexameTHASONE 4 MG/ML 1ML VIAL (J1100) As Ordered ONE (09:35)
[2019-10-18] MEDS ORDERED: LIDOCAINE 2% INJ 100 MG/5 ML SDV (FOR ANES.) As Ordered ONE (09:35)
[2019-10-18] MEDS ORDERED: ONDANSETRON 4MG/2ML VIAL (J2405) As Ordered ONE (09:36)
[2019-10-18] MEDS ORDERED: BUPIVACAINE HCL 0.25% 30 ML VIAL As Ordered ONE (10:37)
[2019-10-18] MEDS ORDERED: MIDAZOLAM INJ 2 MG/2 ML VIAL (J2250) As Ordered ONE (10:58)
[2019-10-18] MEDS ORDERED: ePHEDrine SULFATE 25 MG/5 ML(5MG/ML) SYRINGE As Ordered ONE (11:30)
[2019-10-18] MEDS ORDERED: PERCOCET 5MG/325MG TAB As Ordered ONE (13:05)
[2019-10-18] MEDS ORDERED: LR 1,000 ML IV SCH (13:15)
[2019-10-18] MEDS ORDERED: ACETAMINOPHEN TAB 650MG DOSE (2X325MG) PO PRN (13:15)
[2019-10-18] MEDS ORDERED: MEPERIDINE INJ 25 MG/ML VIAL (J2175) IV PRN (13:15)
[2019-10-18] MEDS ORDERED: METOCLOPRAMIDE INJ 10MG/2ML VIAL (J2765) IV PRN (13:15)
[2019-10-18] MEDS ORDERED: fentaNYL 100 MCG/2 ML INJECTION (J3010) IV PRN (13:15)
[2019-10-18] MEDS ORDERED: ONDANSETRON 4MG/2ML VIAL (J2405) IV PRN (13:15)
[2019-10-18] MEDS ORDERED: oxyCODONE 5MG TAB PO PRN (13:15)
[2019-10-18 14:45] VITALS: BP 145/63
[2019-10-18] MEDS ORDERED: NORC1TAB7 PO (14:59)
--- NOTE | 2019-10-18 17:22 | RO ---
DATE OF PROCEDURE: 10/18/2019 PREOPERATIVE DIAGNOSIS: Symptomatic gallstones. POSTOPERATIVE DIAGNOSIS: Symptomatic gallstones. PROCEDURE PERFORMED: Laparoscopic cholecystectomy. SURGEON: Dr. Hua Nur. ADVERTISING SPACE CLERK: ANESTHESIA: General. INDICATIONS FOR PROCEDURE: Patient is a 69-year-old woman who on September 12, 2019 had an attack of severe upper abdominal pain. She was evaluated with ultrasound and found to have a very large stone in the gallbladder. She is now for laparoscopic cholecystectomy. DESCRIPTION OF PROCEDURE: The patient was placed supine on the operating table. She was placed under general endotracheal anesthesia. The patient's abdomen was prepped and draped in a sterile fashion. Inspection showed a long and depressed somewhat widened scar just to the left of the midline extending from the level of the umbilicus to the suprapubic area. I elected to make the initial entry in the abdomen in the left upper quadrant. Therefore, 0.25% Marcaine was infiltrated and a small incision was made. A Veress needle was inserted and after a positive hanging drop test, the abdomen was insufflated with carbon dioxide gas. A 5 mm port was placed over a 30-degree 5 mm scope, and this was advanced through the abdominal wall without difficulty. Initial examination showed some fairly extensive adhesions of the omentum to the midabdomen starting just above the level of the umbilicus along the midline and extending inferiorly. The upper abdomen was spared of adhesions. Local anesthesia was infiltrated at the other trocar sites as needed. An 11 mm port was placed approximately 3-5 cm above the level of the umbilicus along the midline. Camera port was then shifted to this location. Two 5 mm ports were placed in the right upper quadrant. The patient was tilted to a slight reverse Trendelenburg position and rolled to the left. The gallbladder appeared somewhat distended but not acutely inflamed. The liver appeared normal in color and consistency. Visualized portions of the stomach and bowel appeared normal. The gallbladder was grasped and elevated. Dissection was begun near the gallbladder neck using the hook cautery. The tissues were opened and divided. The cystic duct and the cholecystic artery were both then clearly identified. The cystic artery was clipped and divided. The cystic duct was then also clipped and divided. The gallbladder was then dissected free from the gallbladder bed using the hook cautery. The gallbladder was not perforated in the course of dissection. The gallbladder was placed in an Endopouch. It was clear that there was one large stone in the midbody of the gallbladder. The right upper quadrant was inspected and a small bleeding point on the gallbladder bed was cauterized. The area was then irrigated and inspected, and there was no evidence of bleeding or bile leak. The patient was returned to a flat position. The abdomen was deflated and the trocars were removed. The gallbladder was removed through the supraumbilical site, but it was necessary to extend the fascial incision several centimeters to allow removal of the gallbladder. There was one very large stone up to 3-4 cm in maximum diameter identified within the gallbladder. The fascia was then closed with interrupted simple sutures of #1-0 Vicryl. The skin incisions were all closed with buried #4-0 Vicryl and Steri-Strips. Light dressings were applied. The patient tolerated the procedure well without apparent complication. She was awakened in the operating room, extubated and moved to the recovery room in stable condition.
== END 2019-10-18 14:49 | disposition home or self-care (01) ==
LOC: M SDC 08:27
PROVIDERS: ATTEND Surgery
DX: K80.10 Calculus of gallbladder with chronic cholecystitis without obstruction (principal); E11.9 Type 2 diabetes mellitus without complications; I10 Essential (primary) hypertension; E78.5 Hyperlipidemia, unspecified; K21.9 Gastro-esophageal reflux disease without esophagitis; I25.10 Atherosclerotic heart disease of native coronary artery without angina pectoris; I25.2 Old myocardial infarction; Z86.73 Personal history of transient ischemic attack (TIA), and cerebral infarction without residual deficits; Z98.61 Coronary angioplasty status; Z87.891 Personal history of nicotine dependence; Z79.82 Long term (current) use of aspirin; F31.9 Bipolar disorder, unspecified
CPT/HCPCS: 47562; 88304; J1100; J2250; J2405; J3010

== ENCOUNTER → 2020-02-20 | Outpatient (CLI) | payer MEDICARE ==
[~2020-02-20] MED LIST changes: -LIDOCAINE 1% MDV 20ML VIAL SQ PRN; +LORA2TAB14; +LORA2TAB14 PO; -LORA2TAB9; -LORA2TAB9 PO; -LR 1,000 ML IV ONE
[2020-02-20 09:06] LABS: ALBUMIN 4.1 GM/DL (3.2-5.2); ALT/SGPT 46 U/L (12-78); BILIRUBIN,TOTAL 0.4 MG/DL (0.2-1.0); BLOOD UREA NITROGEN 11 MG/DL (7-18); CALCIUM LEVEL 9.2 MG/DL (8.8-10.2); CARBON DIOXIDE LEVEL 27 MEQ/L (21-32); CHLORIDE LEVEL 106 MEQ/L (98-107); CHOLESTEROL LEVEL 101 MG/DL (<200); CHOLESTEROL RISK RATIO 2.104 (<5); CREATININE FOR GFR 0.87 MG/DL (0.55-1.30); GLOMERULAR FILTRATION RATE > 60.0 (>39); GLUCOSE, FASTING 128 MG/DL (70-100); HDL CHOLESTEROL 48 MG/DL (>40); LDL CHOLESTEROL 36 MG/DL (<100); NON-HDL-C 53 MG/DL; POTASSIUM SERUM 4.4 MEQ/L (3.5-5.1); SODIUM LEVEL 141 MEQ/L (136-145); TOTAL PROTEIN 7.5 GM/DL (6.4-8.2); TRIGLYCERIDES LEVEL 84 MG/DL (<150)
[2020-02-20 09:09] LABS: MAU/CREAT RATIO 111.3 MCG/MG (0.0-30.0)
[2020-02-20 09:19] LABS: HEMOGLOBIN A1c 7.1 %
[2020-02-20 09:57] LABS: TOTAL 25(OH) VITAMIN D 58.3 NG/ML (30.0-100.0)
== END ==
LOC: M LAB 07:14
PROVIDERS: ATTEND Nurse Practitioner Family
DX: E11.9 Type 2 diabetes mellitus without complications (principal); Z79.899 Other long term (current) drug therapy

== ENCOUNTER → 2020-02-20 | Outpatient (CLI) | payer MEDICARE | LOC: M LAB 07:18 | PROVIDERS: ATTEND Physician Assistant Medical | DX: R56.9 Unspecified convulsions (principal) ==

== ENCOUNTER 2020-03-06 10:10 | Emergency (ER) | payer MEDICARE ==
[2020-03-06 10:57] LABS: BASO # 0.1 10^3/uL (0.0-0.2); BASO % 0.6 % (0.0-1.0); EOS # 0.2 10^3/uL (0.0-0.5); HEMATOCRIT 45.9 % (36.0-47.0); HEMOGLOBIN 15.6 g/dl (12.0-15.5); LYMPH # 1.8 10^3/uL (1.5-5.0); LYMPH % 19.6 % (24.0-44.0); MEAN CORPUSCULAR HEMOGLOBIN 31.3 pg (27.0-33.0); MONO % 10.8 % (0.0-5.0); NEUTROPHILS % 66.6 % (36.0-66.0); PLATELET COUNT, AUTOMATED 248 10^3/uL (150-450); RED BLOOD COUNT 4.99 10^6/uL (4.00-5.40)
[2020-03-06 11:22] LABS: ALBUMIN 4.9 GM/DL (3.2-5.2); BILIRUBIN,DIRECT 0.2 MG/DL (0.0-0.2); BILIRUBIN,TOTAL 0.8 MG/DL (0.2-1.0); TOTAL PROTEIN 8.8 GM/DL (6.4-8.2)
[2020-03-06] MEDS ORDERED: CLON0.5T17 PO ×2 (11:55→14:41)
[2020-03-06 12:14] VITALS: BP 140/63
--- NOTE | 2020-03-06 18:47 | ECGEPIP ---
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
== END 2020-03-06 12:23 | disposition home or self-care (01) ==
LOC: EDBD 10:10 → M ED 10:10
DX: G44.89 Other headache syndrome (principal); I10 Essential (primary) hypertension; E78.00 Pure hypercholesterolemia, unspecified; I25.2 Old myocardial infarction; K21.9 Gastro-esophageal reflux disease without esophagitis; M81.0 Age-related osteoporosis without current pathological fracture; E11.9 Type 2 diabetes mellitus without complications; F31.9 Bipolar disorder, unspecified; F41.0 Panic disorder [episodic paroxysmal anxiety]; Z79.84 Long term (current) use of oral hypoglycemic drugs; Z95.5 Presence of coronary angioplasty implant and graft; Z79.82 Long term (current) use of aspirin; Z87.891 Personal history of nicotine dependence; Z79.899 Other long term (current) drug therapy; Z86.73 Personal history of transient ischemic attack (TIA), and cerebral infarction without residual deficits; Z88.0 Allergy status to penicillin; Z88.7 Allergy status to serum and vaccine

== ENCOUNTER → 2020-07-09 | Outpatient (CLI) | payer MEDICARE, MEDICAID ==
[~2020-07-09] MED LIST changes: +AMLO1TAB24; +AMLO1TAB24 PO; -AMLO5TAB6; -AMLO5TAB6 PO; +ASPI-546 PO; -ASPI1TAB15 PO; +CLON0.5T17 PO
[2020-07-09 07:25] LABS: BASO % 0.4 % (0.0-1.0); EOS # 0.2 10^3/uL (0.0-0.5); EOS % 2.7 % (0.0-3.0); HEMATOCRIT 43.8 % (36.0-47.0); HEMOGLOBIN 14.8 g/dl (12.0-15.5); LYMPH # 1.6 10^3/uL (1.5-5.0); LYMPH % 22.7 % (24.0-44.0); MEAN CORPUSCULAR HEMOGLOBIN 31.4 pg (27.0-33.0); MEAN CORPUSCULAR HGB CONC 33.8 g/dl (32.0-36.5); MEAN CORPUSCULAR VOLUME 92.8 fl (80.0-96.0); MONO # 0.8 10^3/uL (0.0-0.8); MONO % 12.2 % (0.0-5.0); NEUTROPHILS # 4.3 10^3/uL (1.5-8.5); NEUTROPHILS % 61.6 % (36.0-66.0); PLATELET COUNT, AUTOMATED 233 10^3/uL (150-450); RED BLOOD COUNT 4.72 10^6/uL (4.00-5.40); WHITE BLOOD COUNT 6.9 10^3/uL (4.0-10.0)
[2020-07-09 07:35] LABS: HEMOGLOBIN A1c 6.6 %
[2020-07-09 07:56] LABS: ALBUMIN 3.8 GM/DL (3.2-5.2); ALT/SGPT 33 U/L (12-78); BILIRUBIN,TOTAL 0.3 MG/DL (0.2-1.0); BLOOD UREA NITROGEN 11 MG/DL (7-18); CALCIUM LEVEL 9.4 MG/DL (8.8-10.2); CARBON DIOXIDE LEVEL 28 MEQ/L (21-32); CHLORIDE LEVEL 106 MEQ/L (98-107); CHOLESTEROL LEVEL 120 MG/DL (<200); CHOLESTEROL RISK RATIO 2.727 (<5); CREATININE FOR GFR 0.95 MG/DL (0.55-1.30); FREE T4 0.87 NG/DL (0.76-1.46); GLOMERULAR FILTRATION RATE > 60.0 (>39); GLUCOSE, FASTING 126 MG/DL (70-100); HDL CHOLESTEROL 44 MG/DL (>40); LDL CHOLESTEROL 31 MG/DL (<100); NON-HDL-C 76 MG/DL; POTASSIUM SERUM 4.3 MEQ/L (3.5-5.1); SODIUM LEVEL 140 MEQ/L (136-145); TOTAL PROTEIN 7.1 GM/DL (6.4-8.2); TRIGLYCERIDES LEVEL 226 MG/DL (<150)
[2020-07-09 07:59] LABS: CREATININE, URINE 72.6 MG/DL; MALB URINE SIEMENS 35.6 MG/L
== END ==
LOC: M LAB 06:34
PROVIDERS: ATTEND Nurse Practitioner Family
DX: F41.0 Panic disorder [episodic paroxysmal anxiety] (principal); E11.9 Type 2 diabetes mellitus without complications; E55.9 Vitamin D deficiency, unspecified; M81.0 Age-related osteoporosis without current pathological fracture; R56.9 Unspecified convulsions; E78.5 Hyperlipidemia, unspecified; I10 Essential (primary) hypertension; I25.10 Atherosclerotic heart disease of native coronary artery without angina pectoris
CPT/HCPCS: 36415; 80053; 80061; 82043; 82306; 83036; 84439; 84443; 85025; G0480

== ENCOUNTER → 2020-08-20 | Outpatient (CLI) | payer MEDICARE, MEDICAID ==
[2020-08-20 09:44] LABS: FOLATE 17.1 NG/ML
== END ==
LOC: M LAB 06:41
PROVIDERS: ATTEND Physician Assistant Medical
DX: G40.89 Other seizures (principal)

== ENCOUNTER → 2020-09-18 | Outpatient (CLI) | payer SELFPAY | LOC: M LABSMTC 17:39 | PROVIDERS: ATTEND Pediatrics | DX: Z11.59 Encounter for screening for other viral diseases (principal) ==

== ENCOUNTER → 2020-10-16 | Outpatient (CLI) | payer MEDICARE, MEDICAID ==
--- NOTE | 2020-10-16 09:31 | REPMRS ---
Patient History The patient states she has not had a clinical breast exam in over a year. Family history of breast cancer at age 50 or over in sister. 3D TOMOSYNTHESIS WAS PERFORMED. The Julisa Medina lifetime risk for breast cancer is 6.7%. [place] breast density b. Digital Woman Screen Mammo: October 16, 2020 - Exam #: [id number] Bilateral CC and MLO view(s) were taken. Technologist: Roxanne Braun, Technologist Prior study comparison: October 14, 2019, bilateral digital woman screen mammo performed at [facility]. September 15, 2018, bilateral digital woman screen mammo performed at [facility]. FINDINGS: There are scattered fibroglandular densities. There has been no change in the appearance of the mammogram from the prior studies. There is a mild amount of residual fibroglandular tissue which is fairly symmetric. There is no interval development of dominant mass, architectural distortion, or clustered microcalcification suggestive of malignancy. Assessment: BI-RADS/ACR category 1 mammogram. Negative Mammogram. Recommendation Routine screening mammogram in 1 year (for women over age 40). This mammogram was interpreted with the aid of an FDA-approved computer-aided dectection system. Electronically Signed By: Trevor Freeman MD 10/16/20 0931
--- NOTE | 2020-10-16 09:48 | DEXAMM ---
INDICATION: M81.0 OSTEOPOROSIS. COMPARISON: Comparison studies are from September 15, 2018, May 20, 2016, and August 22, 2013.. TECHNIQUE: Bone density was measured using dual-energy x-ray absorptionmetry (DEXA). FINDINGS: AP SPINE L1-L4 BMD 0.668 g/cm2 Young Adult T-Score -4.3 Age Matched Z-Score -2.5. LT FEMUR, TOTAL BMD 0.821 g/cm2 Young Adult T-Score -1.5 Age Matched Z-Score 0.1. LT NECK BMD 0.681 g/cm2 Young Adult T-Score -2.6 Age Matched Z-Score -0.8. RT FEMUR, TOTAL BMD 0.790 g/cm2 Young Adult T-Score -1.7 Age Matched Z-Score -0.1. RT NECK BMD 0.837 g/cm2 Young Adult T-Score -1.4 Age Matched Z-Score 0.3. IMPRESSION: There is osteoporosis of the spine. There is osteoporosis of the left hip. There is low bone density of the right hip. The density of the spine has decreased 7.4% since the initial exam on August 22, 2013. The density of the spine decrease decreased 7.2% since most recent exam on September 15, 2018. The density of the left hip has increased 21.1% since initial exam on August 22, 2013. The density of the left hip has increased 3.8% since most recent exam on September 15, 2018. The density of the right hip has increased 20.1% since the initial exam on August 22, 2013. The density of the right hip has increased 0.9% since the most recent exam on September 15, 2018. FOLLOW-UP: Recommendation for the next bone density exam: 2 years. <Electronically signed by Aden Hall > 10/16/20 0944
== END ==
LOC: M WHC 07:55
PROVIDERS: ATTEND Nurse Practitioner Family
DX: Z12.31 Encounter for screening mammogram for malignant neoplasm of breast (principal); M81.0 Age-related osteoporosis without current pathological fracture; M85.851 Other specified disorders of bone density and structure, right thigh; Z80.3 Family history of malignant neoplasm of breast

== ENCOUNTER → 2020-12-04 | Outpatient (CLI) | payer MEDICARE, MEDICAID ==
[~2020-12-04] MED LIST changes: -ALEN70TA74 PO; +ALEN70TA82 PO; +LISI10TA22 PO; -LISI10TA4 PO
[2020-12-04 10:13] LABS: FOLATE > 24.0 NG/ML; VITAMIN B12 LEVEL 884 PG/ML
== END ==
LOC: M LAB 08:07
PROVIDERS: ATTEND Physician Assistant Medical
DX: R56.9 Unspecified convulsions (principal); E53.8 Deficiency of other specified B group vitamins

== ENCOUNTER → 2020-12-31 | Outpatient (CLI) | payer MEDICARE, MEDICAID ==
[2020-12-31 07:46] LABS: HEMOGLOBIN A1c 6.3 %
[2020-12-31 07:57] LABS: ALBUMIN 3.7 GM/DL (3.2-5.2); ALT/SGPT 34 U/L (12-78); BLOOD UREA NITROGEN 13 MG/DL (7-18); CALCIUM LEVEL 8.9 MG/DL (8.8-10.2); CARBON DIOXIDE LEVEL 29 MEQ/L (21-32); CHLORIDE LEVEL 105 MEQ/L (98-107); CHOLESTEROL LEVEL 112 MG/DL (<200); CHOLESTEROL RISK RATIO 2.488 (<5); CREATININE FOR GFR 0.83 MG/DL (0.55-1.30); GLOMERULAR FILTRATION RATE > 60.0 (>39); GLUCOSE, FASTING 123 MG/DL (70-100); HDL CHOLESTEROL 45 MG/DL (>40); LDL CHOLESTEROL 48 MG/DL (<100); MAGNESIUM LEVEL 1.9 MG/DL (1.8-2.4); NON-HDL-C 67 MG/DL; POTASSIUM SERUM 4.1 MEQ/L (3.5-5.1); SODIUM LEVEL 140 MEQ/L (136-145); TOTAL PROTEIN 6.8 GM/DL (6.4-8.2); TRIGLYCERIDES LEVEL 97 MG/DL (<150)
[2020-12-31 09:57] LABS: TOTAL 25(OH) VITAMIN D 46.6 NG/ML (30.0-100.0)
== END ==
LOC: M LAB 06:52
PROVIDERS: ATTEND Nurse Practitioner Family
DX: I10 Essential (primary) hypertension (principal); E11.9 Type 2 diabetes mellitus without complications; E55.9 Vitamin D deficiency, unspecified; E78.5 Hyperlipidemia, unspecified; Z79.899 Other long term (current) drug therapy

== ENCOUNTER → 2021-04-29 | Outpatient (CLI) | payer MEDICARE, MEDICAID ==
[2021-04-29 07:49] LABS: BASO # 0.1 10^3/uL (0.0-0.2); BASO % 0.8 % (0.0-1.0); EOS # 0.4 10^3/uL (0.0-0.5); EOS % 6.2 % (0.0-3.0); HEMATOCRIT 45.6 % (36.0-47.0); LYMPH # 1.8 10^3/uL (1.5-5.0); LYMPH % 29.7 % (24.0-44.0); MEAN CORPUSCULAR HEMOGLOBIN 31.2 pg (27.0-33.0); MEAN CORPUSCULAR HGB CONC 32.9 g/dl (32.0-36.5); MEAN CORPUSCULAR VOLUME 94.8 fl (80.0-96.0); MONO # 0.7 10^3/uL (0.0-0.8); NEUTROPHILS # 3.2 10^3/uL (1.5-8.5); NEUTROPHILS % 51.1 % (36.0-66.0); PLATELET COUNT, AUTOMATED 219 10^3/uL (150-450); RED BLOOD COUNT 4.81 10^6/uL (4.00-5.40); WHITE BLOOD COUNT 6.2 10^3/uL (4.0-10.0)
[2021-04-29 08:22] LABS: ALBUMIN 4.1 GM/DL (3.2-5.2); ALT/SGPT 29 U/L (12-78); BILIRUBIN,TOTAL 0.4 MG/DL (0.2-1.0); BLOOD UREA NITROGEN 15 MG/DL (7-18); CALCIUM LEVEL 9.5 MG/DL (8.8-10.2); CARBON DIOXIDE LEVEL 29 MEQ/L (21-32); CHLORIDE LEVEL 108 MEQ/L (98-107); CHOLESTEROL LEVEL 132 MG/DL (<200); CREATININE FOR GFR 0.82 MG/DL (0.55-1.30); FREE T4 0.88 NG/DL (0.76-1.46); GLOMERULAR FILTRATION RATE > 60.0 (>39); GLUCOSE, FASTING 144 MG/DL (70-100); HDL CHOLESTEROL 50 MG/DL (>40); HEMOGLOBIN A1c 6.4 %; LDL CHOLESTEROL 60 MG/DL (<100); NON-HDL-C 82 MG/DL; SODIUM LEVEL 141 MEQ/L (136-145); TOTAL PROTEIN 7.3 GM/DL (6.4-8.2); TRIGLYCERIDES LEVEL 111 MG/DL (<150)
[2021-04-29 08:43] LABS: CREATININE, URINE 80.6 MG/DL; MAU/CREAT RATIO 712.1 MCG/MG (0.0-30.0)
[2021-04-29 10:02] LABS: TOTAL 25(OH) VITAMIN D 51.4 NG/ML (30.0-100.0)
== END ==
LOC: M LAB 07:13
PROVIDERS: ATTEND Nurse Practitioner Family
DX: E55.9 Vitamin D deficiency, unspecified (principal); E78.5 Hyperlipidemia, unspecified; E11.9 Type 2 diabetes mellitus without complications; I10 Essential (primary) hypertension; Z79.899 Other long term (current) drug therapy

== ENCOUNTER → 2021-08-02 | Outpatient (CLI) | payer MEDICARE, MEDICAID ==
[2021-08-02 10:43] LABS: BASO # 0.1 10^3/uL (0.0-0.2); BASO % 0.6 % (0.0-1.0); EOS # 0.2 10^3/uL (0.0-0.5); HEMATOCRIT 45.8 % (36.0-47.0); HEMOGLOBIN 15.2 g/dl (12.0-15.5); LYMPH # 1.1 10^3/uL (1.5-5.0); LYMPH % 11.6 % (24.0-44.0); MEAN CORPUSCULAR HEMOGLOBIN 31.3 pg (27.0-33.0); MEAN CORPUSCULAR HGB CONC 33.2 g/dl (32.0-36.5); MEAN CORPUSCULAR VOLUME 94.2 fl (80.0-96.0); MONO # 0.9 10^3/uL (0.0-0.8); MONO % 9.3 % (2.0-8.0); NEUTROPHILS # 7.4 10^3/uL (1.5-8.5); NEUTROPHILS % 76.1 % (36.0-66.0); PLATELET COUNT, AUTOMATED 216 10^3/uL (150-450); RED BLOOD COUNT 4.86 10^6/uL (4.00-5.40); WHITE BLOOD COUNT 9.7 10^3/uL (4.0-10.0)
[2021-08-02 10:53] LABS: INR 0.9; PROTHROMBIN TIME 12.6 SECONDS (12.7-14.5)
[2021-08-02 10:54] LABS: PARTIAL THROMBOPLASTIN TIME 24.4 SECONDS (25.9-37.0)
[2021-08-02 11:09] LABS: BLOOD UREA NITROGEN 13 MG/DL (7-18); CARBON DIOXIDE LEVEL 31 MEQ/L (21-32); CHLORIDE LEVEL 105 MEQ/L (98-107); CREATININE FOR GFR 0.93 MG/DL (0.55-1.30); GLOMERULAR FILTRATION RATE > 60.0 (>39); GLUCOSE, FASTING 121 MG/DL (70-100); POTASSIUM SERUM 4.8 MEQ/L (3.5-5.1); SODIUM LEVEL 139 MEQ/L (136-145)
[2021-08-02 11:10] LABS: ALBUMIN 4.2 GM/DL (3.2-5.2); ALT/SGPT 33 U/L (12-78); BILIRUBIN,TOTAL 0.5 MG/DL (0.2-1.0); CALCIUM LEVEL 10.1 MG/DL (8.8-10.2); TOTAL PROTEIN 7.5 GM/DL (6.4-8.2)
== END ==
LOC: M LAB 09:00
DX: E78.2 Mixed hyperlipidemia (principal); I10 Essential (primary) hypertension; I34.0 Nonrheumatic mitral (valve) insufficiency

== ENCOUNTER 2021-08-26 07:41 | Emergency (ER) | payer MEDICARE, MEDICAID ==
[~2021-08-26] VITALS: Ht 149.9 cm; Wt 60.7 kg
[~2021-08-26 07:41] MED LIST changes: -CILO100T PO; -CLOP75TA2 PO; -holter monitor
[2021-08-26] MEDS ORDERED: CLOP75TA2 PO (08:01)
[2021-08-26] MEDS ORDERED: CILO100T PO (08:01)
[2021-08-26 08:27] LABS: BASO # 0.1 10^3/uL (0.0-0.2); BASO % 0.7 % (0.0-1.0); EOS # 0.3 10^3/uL (0.0-0.5); EOS % 3.8 % (0.0-3.0); HEMATOCRIT 43.1 % (36.0-47.0); HEMOGLOBIN 14.6 g/dl (12.0-15.5); LYMPH # 1.9 10^3/uL (1.5-5.0); LYMPH % 28.4 % (24.0-44.0); MEAN CORPUSCULAR HEMOGLOBIN 31.2 pg (27.0-33.0); MEAN CORPUSCULAR HGB CONC 33.9 g/dl (32.0-36.5); MEAN CORPUSCULAR VOLUME 92.1 fl (80.0-96.0); MONO # 0.8 10^3/uL (0.0-0.8); NEUTROPHILS # 3.8 10^3/uL (1.5-8.5); NEUTROPHILS % 55.8 % (36.0-66.0); PLATELET COUNT, AUTOMATED 245 10^3/uL (150-450); RED BLOOD COUNT 4.68 10^6/uL (4.00-5.40); WHITE BLOOD COUNT 6.8 10^3/uL (4.0-10.0)
--- OUTSIDE RECORDS SUMMARY | 2021-08-26 08:28 | CCD | Continuity of Care Document ---
Author Author Suellen MORALES I DPM Organization Unknown Address [address] [place] [address], [address] [place] [id number] Phone [phone] Care Team Providers Care Meat Stock Clerk Name Role Phone Jose Norton M.D. [phone] Problems Active Problems Provider Date Hallux valgus (acquired), unspecified foot Wil Morales DPM Onset: 09/11/2017 Type 2 diabetes mellitus with diabetic polyneuropathy Wil Morales DPM Onset: 09/11/2017 Onychomycosis Wil Morales DPM Onset: 09/11/2017 Corns and callosities Wil Morales DPM Onset: 09/11/2017 Social History Type Date Description Comments Sex Unknown ETOH Use Denies alcohol use stopped 2013 Tobacco Use Start: Unknown End: Unknown Patient is a former smoker stopped in 2002, started in Allergies and adverse reactions Active Allergies Criticality Reaction | Severity Comments Date Penicillin Unable to assess criticality 09/07/2017 Codeine Unable to assess criticality 09/07/2017 Pneumococcal Capsular Polysaccharide Type 3 Vaccine Un able to assess criticality 09/07/2017 Medications Active Medications SIG Qnty Indications Ordering Provide r Date Ammonium Lactate 12% Cream apply to feet daily 280units Wil Morales DPM 09/07/2017 Lisinopril 20mg Tablets Black M.D.,Christopher Aspirin Low Dose 81mg Chewtabs Chew One Tablet By Mouth Every Day Unknown Metoprolol Tartrate 100mg Tablets Black M.D.,[place] Tramadol HCL 50mg Tablets Unknown Lisinopril 10mg Tablets Black M.D.,[place] Metformin HCL 500mg Tablets Black M.D.,[place] Carbamazepine 100mg Chewtabs [facility],[place] Brilinta 90mg Tablets Take One Tablet By Mouth Twice A Day Unknown Ibandronate Sodium 150mg Tablets Take One Tablet By Mouth On The First Day Of Every Month With Water On Unknown Vitamin D (Ergocalciferol) [id number] Capsules Take 1 Capsule By Mouth Once A Month Unkn own Sulfamethoxazole/Trimethoprim DS 800-160mg Tablets Black M.D.,[place] Levetiracetam 500mg Tablets [facility] Nitroglycerin 0.4mg Tablets Sub Black M.D.,[place] Vimpat 50mg Tablets [facility],[place] Lamotrigine 25mg Tablets [facility] Metoprolol Tartrate 50mg Tablets Black M.D.,[place] Amlodipine Besylate 5mg Tablets Black M.D.,[place] Ranexa 500mg Tablets ER 12HR Black M.D.,[place] Lamotrigine 100mg Tablets [facility],[place] Lorazepam 2mg Tablets Black M.D.,[place] Rosuvastatin Calcium 20mg Tablets Black M.D.,[place] Isosorbide Mononitrate ER 120mg Tablets ER 24HR Black M.D.,[place] Immunizations Description No Information Available Vital Signs Date Vital Result Comment 09/07/2017 11:18am Height 59 inches 4'11" Weight 139.00 lb BP Systolic 164 mmHg BP Diastolic 77 mmHg Heart Rate 58 /min BMI (Body Mass Index) 28.1 kg/m2 Results Description No Information Available Procedures Date Code Description Status 07/16/2021 39774 Debridement 6-10 Nails Electric Completed 04/30/2021 09551 Debridement 6-10 Nails Electric Completed 01/25/2021 12987 Debridement 6-10 Nails Electric Completed Medical Devices Description No Information Available Encounters Description No Information Available Assessments Date Code Description Provider 07/17/2021 E11.42 Type 2 diabetes mellitus with di abetic polyneuropathy Wil Morales, RAKESH 07/16/2021 B35.1 Tinea unguium Wil Morales, DASHM 07/16/2021 E11.42 Type 2 diabetes mellitus with di abetic polyneuropathy Wil Morales, DASHM 04/30/2021 B35.1 Tinea unguium Wil Morales, RAKESH 04/30/2021 E11.42 Type 2 diabetes mellitus with di abetic polyneuropathy Wil Morales, RAKESH 01/25/2021 B35.1 Tinea unguium Wil Morales, DASHM 01/25/2021 E11.42 Type 2 diabetes mellitus with di abetic polyneuropathy Wil Morales DPM Plan of Treatment Future Appointment(s):* 09/24/2021 2:30 pm - Wil Morales DPM at [facility] Functional Status Description No Information Available Mental Status Description No Information Available Referrals Description No Information Available
--- OUTSIDE RECORDS SUMMARY | 2021-08-26 08:28 | CCD | Continuity of Care Document ---
Author Author Suellen RAMÍREZ MD Organization Unknown Address [address] [place] [address] Phone [phone] Care Team Providers Care Stove Fitter Name Role Phone Jose Norton MD AUTM [phone] Problems Active Problems Provider Date Carotid artery occlusion Onset: 04/11/20 14 Essential hypertension Onset: 04/11/2014 Coronary arteriosclerosis Onset: 012 Mixed hyperlipidemia Norman Juares MD Onset: 03/18/2016 History of coronary artery bypass grafting Christiano Draper MD Onset: 03/25/2016 Mitral valve disorder Gio Arboleda MD Onset: 05/20/2016 Patient post percutaneous transluminal coronary angioplasty Norman Juares MD Onset: 07/09/2016 Old myocardial infarction Norman Juares MD Onset: 016 Dyspnea Luis Mcmillan MD Onset: 11/11/2016 Pure hypercholesterolemia Luis Mcmillan MD Onset: 017 Type 2 diabetes mellitus Luis Mcmillan MD Onset: 11/11/19 17 Precordial pain Irving Stockton MD Onset: 06/24/2018 Social History Type Date Description Comments Sex Unknown Tobacco Use Start: Unknown 1 ppd x 45 yrs ETOH Use 10/12/1987 Quit Tobacco Use Start: Unknown End: Patient is a former smoker Recreational Drug Use Denies Drug Use Smoking Status Reviewed: 07/19/21 Patient is a former smoker Allergies and adverse reactions Active Allergies Criticality Reaction | Severity Comments Date Penicillin Unable to assess criticality 08/23/2012 Pneumovax Unable to assess criticality 07/09/2016 Medications Active Medications SIG Qnty Indications Ordering Provide r Date Clopidogrel Bisulfate 75mg Tablets 1 by mouth every day 90tabs I70.213 Damon Ramírez MD 07/23/2021 Crestor 20mg Tablets 1 by mouth every day 30tabs Norman Juares MD 07/09/2016 Amlodipine Besylate 5mg Tablets 1 tab daily at 7 Am, and again at 1 PM daily 180tabs Christiano ceron MD 03/25/2016 Lisinopril 20mg Tablets 1 by mouth twice a day 90tabs Norman Juares MD 03/18/2016 Aspirin Low Dose 81mg Tablets q.d. Unknown 06/29/2015 Metoprolol Tartrate 50mg Tablets one po bid Unknown 06/29/2015 Isosorbide Mononitrate ER 120mg Tablets ER 24HR q.d. Unknown 06/29/2015 Lorazepam 0.5mg Tablets 1 by mouth twice a day Unknown Lamotrigine 150mg Tablets 1 tabs by mouth 2x day Unknown Metformin HCL 500mg Tablets 1 by mouth twice a day Unknown Alendronate Sodium 70mg Tablets 1 by mouth once weekly Unknown Nitroglycerin 0.4mg Tablets Sub one tab under the tongue for chest pain, may repeat in 5 minutes 2 times, if no relief call 911 Unknown Vitamin B-12 1000mcg Tablets 1 po daily Unknown Calcium + Vitamin D3 600-5mg-mcg T ablets 1 po 3 x day Unknown Vitamin D (Ergocalciferol) 1.25mg (34061 Ut) Capsules 1 po monthly Unknown Immunizations Description No Information Available Vital Signs Date Vital Result Comment 07/23/2021 1:10pm BP Systolic 144 mmHg BP Diastolic 78 mmHg Heart Rate 76 /min Height 59 inches 4'11" Weight 131.00 lb BMI (Body Mass Index) 26.5 kg/m2 06/18/2021 2:02pm BP Systolic 154 mmHg BP Diastolic 80 mmHg Heart Rate 80 /min Height 59 inches 4'11" Weight 128.00 lb BMI (Body Mass Index) 25.9 kg/m2 Results Test Acquired Date Facility Test Result H/L Range Note Order 03/28/2021 [facility] Echocardiogram <pending> Xray 01/24/2021 [facility] Planar Multi Studies <pending> Procedures Date Code Description Status 07/11/2021 31346 Duplex Scan Lower Ex trem Artery Bypass Graft Complete Bilateral Completed 06/18/2021 70029 Office/Outpatient Established Hi gh MDM 40-54 Min Completed 06/04/2021 26960 Cardiovascular Stress Test Inter pretation & Report Only Completed 06/04/2021 94397 Cardiovascular Stress Test Physi kaelyn Supervision Only Completed 06/04/2021 09319 Myocardial Perfusion Imaging Tomographic (Spect) Multiple Studies Completed 03/28/2021 38264 Echocardiography, Tranthoracic C omplete Image Documentation Completed 01/24/2021 95905 Office/Outpatient Established Mo d MDM 30-39 Min Completed Medical Devices Description No Information Available Encounters Type Date Location Provider Dx Diagnosis Office Visit 06/18/2021 2:00p [facility] Brii Arias, RN, PROJECT EXECUTIVE I25.10 Athscl heart disease of [place] coronary artery w/o ang pctrs I10 Essential (primary) hyperten cornelia E11.9 Type 2 diabetes mellitus wit hout complications E78.2 Mixed hyperlipidemia I65.23 Occlusion and stenosis of bi lateral carotid arteries I34.0 Nonrheumatic mitral (valve) insufficiency Office Visit 01/24/2021 8:00a [facility] Brii Arias RN, PROJECT EXECUTIVE I34.0 Nonrheumatic mitral (valve) insufficiency I10 Essential (primary) hyperten cornelia I25.10 Athscl heart disease of [place] coronary artery w/o ang pctrs E11.9 Type 2 diabetes mellitus wit hout complications E78.2 Mixed hyperlipidemia I65.23 Occlusion and stenosis of bi lateral carotid arteries Assessments Date Code Description Provider 07/23/2021 I10 Essential (primary) hypertension Damon Ramírez MD 07/23/2021 E78.2 Mixed hyperlipidemia Damon sidhu MD 07/23/2021 E11.9 Type 2 diabetes mellitus without complications Damon Ramírez MD 07/23/2021 I25.10 Atherosclerotic hear t disease of [place] coronary artery without angina pectoris Damon Ramírez MD 07/23/2021 I34.0 Nonrheumatic mitral (valve) insu fficiency Damon Ramírez MD 07/23/2021 Z95.1 Presence of aortocoronary bypass graft Damon Ramírez MD 07/23/2021 I70.213 Atherosclerosis of n ative arteries of extremities with intermittent claudication, bilateral legs Damon Ramírez MD 07/11/2021 E11.9 Type 2 diabetes mellitus without complications Tre Centeno MD 07/11/2021 I25.10 Atherosclerotic hear t disease of [place] coronary artery without angina pectoris Tre Centeno MD 07/11/2021 I10 Essential (primary) hypertension Tre Centeno MD 07/11/2021 I73.9 Peripheral vascular disease, uns pecified Tre Centeno MD 06/18/2021 I25.10 Atherosclerotic hear t disease of [place] coronary artery without angina pectoris Brii Arias RN, [facility] 06/18/2021 I10 Essential (primary) hypertension Brii Arias RN, [facility] 06/18/2021 E11.9 Type 2 diabetes mellitus without complications Brii Arias RN, [facility] 06/18/2021 E78.2 Mixed hyperlipidemia Brii sellers RN, [facility] 06/18/2021 I65.23 Occlusion and stenosis of bilate ral carotid arteries Brii Arias RN, [facility] 06/18/2021 I34.0 Nonrheumatic mitral (valve) insu fficiency Brii Arias RN, [facility] 06/04/2021 I25.10 Atherosclerotic hear t disease of [place] coronary artery without angina pectoris Gio Arboleda MD 06/04/2021 Z95.1 Presence of aortocoronary bypass graft Gio Arboleda MD 03/28/2021 I34.0 Nonrheumatic mitral (valve) insu fficiency Suhail Albert MD 03/28/2021 I10 Essential (primary) hypertension Suhail Albert MD 03/28/2021 I25.10 Atherosclerotic hear t disease of [place] coronary artery without angina pectoris Suhail Albert MD 01/24/2021 I34.0 Nonrheumatic mitral (valve) insu fficiency Brii Arias RN, [facility] 01/24/2021 I10 Essential (primary) hypertension Brii Arias RN, [facility] 01/24/2021 I25.10 Atherosclerotic hear t disease of [place] coronary artery without angina pectoris Brii Arias RN, [facility] 01/24/2021 E11.9 Type 2 diabetes mellitus without complications Brii Arias RN, PROJECT EXECUTIVE 01/24/2021 E78.2 Mixed hyperlipidemia Brii sellers RN, PROJECT EXECUTIVE 01/24/2021 I65.23 Occlusion and stenosis of bilate ral carotid arteries Brii Arias RN, [facility] Plan of Treatment Future Appointment(s):* 08/21/2021 10:00 am - Suhail Albert MD at [facility] 02/18/2022 1:15 pm - [place] [employer]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/Device ([id number]) at [place] [facility] 07/23/2021 - Damon Ramírez MD* I10 Essential (primary) hypertension * E78.2 Mixed hyperlipidemia * E11.9 Type 2 diabetes mellitus without complications * I25.10 Atherosclerotic heart disease of [place] coronary artery without angina pectoris * I34.0 Nonrheumatic mitral (valve) insufficiency * Z95.1 Presence of aortocoronary bypass graft * I70.213 Atherosclerosis of [place] arteries of extremities with intermittent claudication, bilateral legs* New Labs:* CBC With Diff, Ordered: 07/23/21 * CMP, Ordered: 07/23/21 * PT W/Inr & Aptt, Ordered: 07/23/21 * Recommendations:* 71-year-old female with known atherosclerotic vascular disease in multiple territories presents with intermittent claudication consistent with [place] category 2. Vascular duplex shows signs of bilateral SFA disease. Does have symptoms worse on the right side more so than the left therefore it may be reasonable to fix the R SFA and assess clinical response before attempting ANIMAL KEEPER HEAD of left SFA. I will Start the patient on Plavix 75 mg daily. Patient and daughter are agreeable to proceeding with the peripheral angiography and possible angioplasty. Risks benefits of the procedure explained to the patient in detail. They fully understand and wish to proceed. Functional Status Description No Information Available Mental Status Description No Information Available Referrals Description No Information Available
--- OUTSIDE RECORDS SUMMARY | 2021-08-26 08:28 | CCD | Continuity of Care Document ---
Author Author Suellen ALBERT MD Organization Unknown Address [address] [place] [address] Phone [phone] Care Team Providers Care Branch Sales And Service Representative Name Role Phone Jose Norton MD AUTM [phone] Problems Active Problems Provider Date Carotid artery [...] by mouth every day 90tabs I70.213 Damon Watt MD 07/23/2021 Nitroglycerin 0.4mg Tablets Sub one tablet as needed for chest pain. May take a maximum of 3 tablets within a 15 minute period 60tabs Damon Watt MD 07/23/2021 Crestor 20mg Tablets 1 by [...] 2 times, if no relief call 911 90tabs Unknown Vitamin B-12 1000mcg Tablets 1 po daily Unknown Calcium + Vitamin D3 600-5mg-mcg T ablets 1 po 3 x day Unknown Vitamin D (Ergocalciferol) 1.25mg (26993 Ut) Capsules 1 po monthly Unknown Immunizations [...] Note Order 03/28/2021 [facility] Echocardiogram <pending> Procedures Date Code Description Status 08/21/2021 17477 Aortography Abdominal & Bilat Il iofemoral LWR Extremity Cath Completed 07/23/2021 08783 Office/Outpatient Established Lo w MDM 20-29 Min Completed 07/11/2021 86843 Duplex Scan Lower Ex trem Artery Bypass Graft Complete Bilateral Completed 06/18/2021 76148 Office/Outpatient Established Hi gh MDM 40-54 Min Completed 06/04/2021 31036 Cardiovascular Stress Test Inter pretation & Report Only Completed 06/04/2021 57977 Cardiovascular Stress Test Physi kaelyn Supervision Only Completed 06/04/2021 60387 Myocardial Perfusion Imaging Tomographic (Spect) Multiple Studies Completed 03/28/2021 13548 Echocardiography, Tranthoracic C omplete Image Documentation Completed Medical Devices Description No Information Available Encounters Type Date Location Provider Dx Diagnosis Office Visit 07/23/2021 1:30p [place] [facility] Damon Watt MD I10 Essential (primary) hypertension E78.2 Mixed hyperlipidemia E11.9 Type 2 diabetes mellitus wit hout complications I25.10 [facility] heart disease of gertrude ve coronary artery w/o ang pctrs I34.0 Nonrheumatic mitral (valve) insufficiency Z95.1 Presence of aortocoronary by pass graft I70.213 Aths[facility] council arteries of ex trm w intrmt veronica, bi legs Office Visit 06/18/2021 2:00p [place] [facility] Brii Arias RN, TRACK SERVICE PERSON I25.10 Athscl heart disease of council coronary artery w/o ang pctrs I10 Essential (primary) hyperten cornelia E11.9 Type 2 diabetes mellitus wit hout complications E78.2 Mixed hyperlipidemia I65.23 Occlusion and stenosis of bi lateral carotid arteries I34.0 Nonrheumatic mitral (valve) insufficiency Assessments Date Code Description Provider 08/21/2021 I70.213 Atherosclerosis of n ative arteries of extremities with intermittent claudication, bilateral legs Shuail Albert MD 07/23/2021 I10 Essential (primary) hypertension Damon Watt MD 07/23/2021 E78.2 Mixed hyperlipidemia Damon sidhu MD 07/23/2021 E11.9 Type 2 diabetes mellitus without complications Damon Watt MD 07/23/2021 I25.10 Atherosclerotic hear t disease of council coronary artery without angina pectoris Damon Watt MD 07/23/2021 I34.0 Nonrheumatic mitral (valve) insu fficiency Damon Watt MD 07/23/2021 Z95.1 Presence of aortocoronary bypass graft Damon Watt MD 07/23/2021 I70.213 Atherosclerosis of n ative arteries of extremities with intermittent claudication, bilateral legs Damon Watt MD 07/11/2021 E11.9 Type 2 diabetes mellitus without complications Tre Centeno MD 07/11/2021 I25.10 Atherosclerotic hear t disease of council coronary artery without angina pectoris Tre Centeno MD 07/11/2021 I10 Essential (primary) hypertension Tre Centeno MD 07/11/2021 I73.9 Peripheral vascular disease, uns pecified Tre Centeno MD 06/18/2021 I25.10 Atherosclerotic hear t disease of council coronary artery without angina pectoris Brii Arias RN, [facility] 06/18/2021 I10 Essential (primary) hypertension Brii Arias RN, [facility] 06/18/2021 E11.9 Type 2 diabetes mellitus without complications Brii Arias RN, [facility] 06/18/2021 E78.2 Mixed hyperlipidemia Brii sellers RN, [facility] 06/18/2021 I65.23 Occlusion and stenosis of bilate ral carotid arteries Brii Arias RN, [facility] 06/18/2021 I34.0 Nonrheumatic mitral (valve) insu fficiency Brii Arias RN, [facility] 06/04/2021 I25.10 Atherosclerotic hear t disease of council coronary artery without angina pectoris Gio Arboleda MD 06/04/2021 Z95.1 Presence of aortocoronary bypass graft Gio Arboleda MD 03/28/2021 I34.0 Nonrheumatic mitral (valve) insu fficiency Suhail Albert MD 03/28/2021 I10 Essential (primary) hypertension Suhail Albert MD 03/28/2021 I25.10 Atherosclerotic hear t disease of council coronary artery without angina pectoris Suhail Albert MD Plan of Treatment Future Appointment(s):* 02/18/2022 1:15 pm - [place] PLANT CLERK/Device (415) at [place] [facility] 07/23/2021 - Damon Watt MD* I10 Essential (primary) hypertension * E78.2 Mixed hyperlipidemia * E11.9 Type 2 diabetes mellitus without complications * I25.10 Atherosclerotic heart disease of council coronary artery without angina pectoris * I34.0 Nonrheumatic mitral (valve) insufficiency * Z95.1 Presence of aortocoronary bypass graft * I70.213 Atherosclerosis of council arteries of extremities with intermittent claudication, bilateral legs* New Labs:* CBC With Diff, Ordered: 07/23/21 * CMP, Ordered: 07/23/21 * PT W/Inr & Aptt, Ordered: 07/23/21 * Recommendations:* 71-year-old female with known atherosclerotic vascular disease in multiple territories presents with intermittent claudication consistent with Scar category 2. Vascular duplex shows signs of bilateral SFA disease. Does have symptoms worse on the right side more so than the left therefore it may be reasonable to fix the R SFA and assess clinical response before attempting ALARM MECHANIC of left SFA. I will Start the [...]
--- OUTSIDE RECORDS SUMMARY | 2021-08-26 08:28 | CCD | Continuity of Care Document ---
Author Author Suellen CENTENO MD Organization Unknown Address [address] [place] [address] Phone [phone] Care Team Providers Care Mutton Puncher Name Role Phone Jose Norton MD AUTM [phone] Problems Active Problems Provider Date Carotid artery [...] 1 ppd x 45 yrs ETOH Use 10/12/1997 Quit Tobacco Use Start: Unknown End: Patient is a former smoker Recreational Drug Use Denies Drug Use Smoking Status Reviewed: 07/19/21 Patient is a former smoker Allergies and adverse reactions Active Allergies Criticality Reaction | Severity Comments Date Penicillin Unable to assess criticality 08/23/2012 Pneumovax Unable to assess criticality 07/09/2016 Medications Active Medications SIG Qnty Indications Ordering Provide r Date Crestor 20mg Tablets 1 by mouth every [...] x day Unknown Vitamin D (Ergocalciferol) 1.25mg (29293 Ut) Capsules 1 po monthly Unknown Immunizations Description No Information Available Vital Signs Date Vital Result Comment 06/18/2021 2:02pm BP Systolic 154 mmHg BP Diastolic 80 mmHg Heart Rate 80 /min Height 59 inches 4'11" Weight 128.00 lb BMI (Body Mass Index) 25.9 kg/m2 01/24/2021 8:04am BP Systolic 146 mmHg BP Diastolic 80 mmHg Heart Rate 80 /min Height 59 inches 4'11" Weight 130.00 lb BMI (Body Mass Index) 26.3 kg/m2 Results Test Acquired Date Facility Test Result H/L Range Note Order 03/28/2021 [facility] Echocardiogram <pending> Xray 01/24/2021 [facility] Myocardial Perfusion Imaging Planar Multi Studies <pending> Procedures Date Code Description Status 07/11/2021 49751 Duplex Scan Lower Ex trem Artery Bypass Graft Complete Bilateral Completed 06/18/2021 68837 Office/Outpatient Established Hi gh MDM 40-54 Min Completed 06/04/2021 97848 Cardiovascular Stress Test Inter pretation & Report Only Completed 06/04/2021 57150 Cardiovascular Stress Test Physi kaelyn Supervision Only Completed 06/04/2021 20909 Myocardial Perfusion Imaging Tomographic (Spect) Multiple Studies Completed 03/28/2021 54733 Echocardiography, Tranthoracic C omplete Image Documentation Completed 01/24/2021 03401 Office/Outpatient Established Mo d MDM 30-39 Min Completed Medical Devices Description No Information Available Encounters Type Date Location Provider Dx Diagnosis Office Visit 06/18/2021 2:00p [place] [facility] Brii Arias, RN, WEB MARKETING INTERN I25.10 Athscl heart disease of inupiat coronary artery w/o ang pctrs I10 Essential (primary) hyperten cornelia E11.9 Type 2 diabetes mellitus wit hout complications E78.2 Mixed hyperlipidemia I65.23 Occlusion and stenosis of bi lateral carotid arteries I34.0 Nonrheumatic mitral (valve) insufficiency Office Visit 01/24/2021 8:00a [place] [facility] Brii Arias RN, WEB MARKETING INTERN I34.0 Nonrheumatic mitral (valve) insufficiency I10 Essential (primary) hyperten cornelia I25.10 Athscl heart disease of gertrude ve coronary artery w/o ang pctrs E11.9 Type 2 diabetes mellitus wit hout complications E78.2 Mixed hyperlipidemia I65.23 Occlusion and stenosis of bi lateral carotid arteries Assessments Date Code Description Provider 07/23/2021 I10 Essential (primary) hypertension Damon Watt MD 07/23/2021 E78.2 Mixed hyperlipidemia Damon sidhu MD 07/23/2021 E11.9 Type 2 diabetes mellitus without complications Damon Watt MD 07/23/2021 I25.10 Atherosclerotic hear t disease of inupiat coronary artery without angina pectoris Damon Watt MD 07/23/2021 I34.0 Nonrheumatic mitral (valve) insu fficiency Damon Watt MD 07/23/2021 Z95.1 Presence of aortocoronary bypass graft Damon Watt MD 07/11/2021 E11.9 Type 2 diabetes mellitus without complications Tre Centeno MD 07/11/2021 I25.10 Atherosclerotic hear t disease of inupiat coronary artery without angina pectoris Tre Centeno MD 07/11/2021 I10 Essential (primary) hypertension Tre Centeno MD 07/11/2021 I73.9 Peripheral vascular disease, uns pecified Tre Centeno MD 06/18/2021 I25.10 Atherosclerotic hear t disease of inupiat coronary artery without angina pectoris Brii Arias RN, [facility] 06/18/2021 I10 Essential (primary) hypertension Brii Arias RN, [facility] 06/18/2021 E11.9 Type 2 diabetes mellitus without complications Brii Arias RN, [facility] 06/18/2021 E78.2 Mixed hyperlipidemia Brii sellers RN, [facility] 06/18/2021 I65.23 Occlusion and stenosis of bilate ral carotid arteries Brii Arias RN, [facility] 06/18/2021 I34.0 Nonrheumatic mitral (valve) insu fficiency Brii Arias RN, [facility] 06/04/2021 I25.10 Atherosclerotic hear t disease of inupiat coronary artery without angina pectoris Gio Arboleda MD 06/04/2021 Z95.1 Presence of aortocoronary bypass graft Gio Arboleda MD 03/28/2021 I34.0 Nonrheumatic mitral (valve) insu fficiency Suhail Albert MD 03/28/2021 I10 Essential (primary) hypertension Suhail Albert MD 03/28/2021 I25.10 Atherosclerotic hear t disease of inupiat coronary artery without angina pectoris Suhail Albert MD 01/24/2021 I34.0 Nonrheumatic mitral (valve) insu fficiency Brii Arias RN, [facility] 01/24/2021 I10 Essential (primary) hypertension Brii Arias RN, [facility] 01/24/2021 I25.10 Atherosclerotic hear t disease of inupiat coronary artery without angina pectoris Brii Arias RN, [facility] 01/24/2021 E11.9 Type 2 diabetes mellitus without complications Brii Arias RN, [facility] 01/24/2021 E78.2 Mixed hyperlipidemia Brii sellers RN, [facility] 01/24/2021 I65.23 Occlusion and stenosis of bilate ral carotid arteries Brii M Hamo, RN, WEB MARKETING INTERN Plan of Treatment Future Appointment(s):* 02/18/2022 1:15 pm - [place] VICE PRESIDENT DIVERSITY/Device (415) at [place] [facility] 07/23/2021 - Damon Watt MD* I10 Essential (primary) hypertension * E78.2 Mixed hyperlipidemia * E11.9 Type 2 diabetes mellitus without complications * I25.10 Atherosclerotic heart disease of inupiat coronary artery without angina pectoris * I34.0 Nonrheumatic mitral (valve) insufficiency * Z95.1 Presence of aortocoronary bypass graft Functional Status Description No Information Available Mental Status Description No Information Available Referrals Description No Information Available
--- OUTSIDE RECORDS SUMMARY | 2021-08-26 08:28 | CCD ---
Author Author [facility] Organization [facility] Address Unknown Phone Unavailable Care Team Providers Care Feather Maker Name Role Phone Dwayne Kristen Unavailable PROBLEMS Type Condition ICD9-CM Code MTL54-SG Code Onset Dates Condition S tatus W/U Status Risk SNOMED Code Notes Problem Osteoporosis M81.0 Active confirmed 8474947 6 Problem Panic disorder F41.0 Active confirmed 16787 1005 Problem Diabetes mellitus, type 2 E11.9 Active confirmed 06558870 Problem Essential (primary) hypertension I10 Active conf irmed 16364764 Problem Seizure disorder G40.909 Active confirmed 12 9728260 Problem Hyperlipidemia E78.5 Active confirmed 33793 004 Problem Other secondary hypertension I15.8 Active confirme d 64101796 Problem Vitamin D deficiency, unspecified E55.9 Active con firmed 81981783 Problem Chronic stable angina I20.8 Active confirmed 431407599 Problem Arteriosclerotic coronary artery disease I25.10 Active confirmed [id number] Problem Calculus of gallbladder K80.20 Active confirmed 60473189 Problem Bipolar disorder F31.9 Active confirmed 137 33528 ALLERGIES Allergen (clinical drug ingredient) Drug/Non Drug Allergy do cumented on EMR Reaction Allergy Type Onset Date Status hydroxyzine HydrOXYzine HCl([facility] Code:[address]-21) Unknown D rug Allergy 09/02/2019 Active penicillin V Penicillin Rash Drug Allergy Active ENCOUNTERS from 1950 to 2021-07-31 Encounter Location Date Provider Diagnosis [facility] [address] [facility] [phone] [place] [address] Jul, Kristen Rice IMMUNIZATIONS Vaccine Route Administration Date Status Influenza 18 yrs & older Flublok IM Intramuscular Jul 06, 2020 Administered Influenza 18 yrs & older Flublok IM Intramuscular Aug 31, 2019 Administered SOCIAL HISTORY Tobacco Use: Social History Observation Description Date Details (start date - stop date) Never Smoker Sex Assigned At : Social History Observation Description Sex Assigned At Unknown Education: Question Answer Notes Level of Education: Not finished High School Language: Question Answer Notes Languages spoken: Amharic Baptism: Question Answer Notes Baptism 03 Hindu Sexual Hx: Question Answer Notes Had sex in the last 12 months (vaginal, oral, or anal)? No Have you ever had an STD? No Alcohol Screening: Question Answer Notes Did you have a drink containing alcohol in the past year? No Points 0 Interpretation Negative Tobacco Use: Question Answer Notes Are you a: never smoker REASON FOR REFERRAL No Information VITAL SIGNS No information MEDICATIONS Medication SIG (Take, Route, Frequency, Duration) Notes Start Da te End Date Status Alendronate Sodium 70 MG TAKE 1 TABLET BY MOUTH WEEKLY for 90 Active Alendronate Sodium 70 MG 1 tablet Orally weekly Active Vitamin D3 1.25 MG (20851 UT) TAKE 1 CAPSULE BY MOUTH EVERY MONTH for 90 Active LaMICtal 150 MG 1 tab Orally Twice a day Active Safety Seal Miscellaneous 1 as directed sharp container Daily fo r 30 Days Oct, Active OneTouch Verio w/Device as directed E11.9 bid for 99 days Active Nitrostat 0.4 MG 1 tablet under the tongue Alex blingual 1 tab onset of chest pain repeat in 5 mts no more than 3 doses Active OneTouch Delica Plus [id number] - DIRECTED THREE TIMES A DAY for 90 Active Aspir-81 81 MG 1 tablet Orally Once a day Active metFORMIN HCl 500 MG 1 tablet with a meal Orally twice daily for 90 day(s) Active Calcium Carb-Cholecalciferol 600-200 MG-UNIT TAKE 1 TA BLET BY MOUTH ONCE A DAY WITH A MEAL for 90 Active Metoprolol Tartrate 50 MG TAKE ONE TABLET BY MOUTH TWICE A D AY WITH FOOD for 90 Active Isosorbide Mononitrate ER 120 MG TAKE ONE TABLET BY MOUTH EV NATHANIEL MORNING for 90 Active Alcohol Prep 70 % as directed topically Daily for 90 day(s) Jul, Active Calcium + D3 600-200 MG-UNIT 1 tablet with a meal Orally Onc e a day for 90 days Active Blood Glucose Test - one touch subcutaneously tid for 90 days Active Amlodipine Besylate 5 MG TAKE ONE TABLET BY MOUTH TWICE A DAY for 90 Active Calcium + D3 600-200 MG-UNIT 1 tablet with a meal Oral ly Once a day for 90 day(s) Active Lisinopril 20 MG TAKE ONE TABLET BY MOUTH EVERY DAY for 90 Active amLODIPine Besylate 5 MG 1 tablet Orally once daily Active Metoprolol Tartrate 50 MG 1 tablet with food Orally Twice a day for 90 days Active Rosuvastatin Calcium 20 MG TAKE ONE TABLET BY MOUTH EVERY DAY for 90 Active LORazepam 0.5 MG 1 tab Orally bid for 30 days Jul, Active Lisinopril 20 MG 1 tablet Orally Once a day for 90 days Active OneTouch Verio - DIRECTED THREE TIMES A DAY for 90 Active PROCEDURES No Information RESULTS No Results REASON FOR VISIT Question MEDICAL (GENERAL) HISTORY Type Description Date Medical History HTN- Renal US (04/2016 )- Les s than 50% stenosis, not flow limiting, incidental gall stones Medical History Hyperlipidemia Medical History CAD sp CABG, SACHIN-05/31/19 NST low risk, LEVF 80%-Dr Arboleda-[facility] //LVH, mild TR/AR by 12/2018 [facility] Medical History Osteoporosis Medical History PVD Medical History bipolar do/LUCAS Medical History GERD Medical History Stroke: CT head (02/2017) old left basal ganglia lacunar infarction, small vessel ischemic disease Medical History Carotid artery occlusion s/p carodid endarectomy- Carotid US (02/2017) No stenosis Right ICA 53.7, LICA 78.11/2018 Carotic US: 70% occlusion of L External caroticd , narrowing R and L internal carotic < 50% Medical History seizuredo, generlized Medical History T2DM NID Surgical History C - SECTION X 2 Surgical History HYSTERECTOMY 1979 Surgical History CAROTID ARTERY REPAIR 12/12, Surgical History TRIPLE BYPASS (HEART) 12/12 Surgical History APPENDECTOMY 1967 Goals Section No Information Health Concerns No Information MEDICAL EQUIPMENT No Information MENTAL STATUS No Information FUNCTIONAL STATUS No Information ASSESSMENTS No Information PLAN OF TREATMENT Medication Medication Name Sig Start Date Stop Date Lisinopril 20 MG 1 tablet Orally Once a day for 90 days OneTouch Verio - DIRECTED THREE TIMES A DAY for 90 LORazepam 0.5 MG 1 tab Orally bid for 30 days Jul, Rosuvastatin Calcium 20 MG TAKE ONE TABLET BY MOUTH EVERY DAY fo r 90 Metoprolol Tartrate 50 MG TAKE ONE TABLET BY MOUTH TWICE A D AY WITH FOOD for 90 LaMICtal 150 MG 1 tab Orally Twice a day Calcium + D3 600-200 MG-UNIT 1 tablet with a meal Orally Onc e a day for 90 days Amlodipine Besylate 5 MG TAKE ONE TABLET BY MOUTH TWICE A DAY fo r 90 Nitrostat 0.4 MG 1 tablet under the tongue Alex blingual 1 tab onset of chest pain repeat in 5 mts no more than 3 doses Alendronate Sodium 70 MG 1 tablet Orally weekly amLODIPine Besylate 5 MG 1 tablet Orally once daily Metoprolol Tartrate 50 MG 1 tablet with food Orally Twice a day for 90 days Aspir-81 81 MG 1 tablet Orally Once a day metFORMIN HCl 500 MG 1 tablet with a meal Orally twice daily for 90 day(s) Lisinopril 20 MG TAKE ONE TABLET BY MOUTH EVERY DAY for 90 Alendronate Sodium 70 MG TAKE 1 TABLET BY MOUTH WEEKLY for 90 Vitamin D3 1.25 MG (09213 UT) TAKE 1 CAPSULE BY MOUTH EVERY RENITA H for 90 Isosorbide Mononitrate ER 120 MG TAKE ONE TABLET BY MOUTH EV NATHANIEL MORNING for 90 OneTouch Delica Plus [id number] - DIRECTED THREE TIMES A DAY or 90 Next Appt Details Provider Name:Kristen Rice, 2020-10 07:30:00 AM, [address] [facility] [address] [facility], , [place], [address], Insurance Providers Payer Name Payer Address Payer Phone Insured Name Patient Relati onship to Insured Coverage Start Date Coverage End Date AETNA MEDICARE A[employer]NA [employer] [address] [facility] [phone] MAXIMILIAN RUIZ I self MEDICAID [employer] [address] [facility] [id number] MAXIMILIAN RUIZ I self
--- OUTSIDE RECORDS SUMMARY | 2021-08-26 08:28 | CCD | Continuity of Care Document ---
Author Author Suellen MORALES I DPM Organization Unknown Address [address] [place] [address], [address] [place] [id number] Phone [phone] Care Team Providers Care Driver Guide Name Role Phone Jose Norton M.D. [phone] Problems Active Problems Provider Date Hallux valgus [...] Black M.D.,[place] Metformin HCL 500mg Tablets Black M.D.,[place] Carbamazepine 100mg Chewtabs [facility],[place] Brilinta 90mg Tablets Take One Tablet By Mouth Twice A Day Unknown Ibandronate Sodium 150mg Tablets Take One Tablet By Mouth On The First Day Of Every Month With Water On Unknown Vitamin D (Ergocalciferol) 77247Xsnw Capsules Take 1 Capsule By Mouth Once A Month Unkn own Sulfamethoxazole/Trimethoprim DS 800-160mg Tablets Black M.D.,[place] Levetiracetam 500mg Tablets [facility] Nitroglycerin 0.4mg Tablets Sub Black M.D.,[place] Vimpat 50mg Tablets [facility],[place] Lamotrigine 25mg Tablets [facility] Metoprolol Tartrate 50mg Tablets Black M.D.,[place] Amlodipine Besylate 5mg Tablets Black M.D.,[place] Ranexa 500mg Tablets ER 12HR Black M.D.,[place] Lamotrigine 100mg Tablets [facility],[place] Lorazepam 2mg Tablets Black M.D.,[place] Rosuvastatin Calcium 20mg Tablets Black M.D.,[place] Isosorbide Mononitrate ER 120mg Tablets ER 24HR Black M.D.,[place] Immunizations Description No Information Available Vital Signs Date Vital Result Comment 09/07/2017 11:18am Height 59 inches 4'11" Weight 139.00 lb BP Systolic 164 mmHg BP Diastolic 77 mmHg Heart Rate 58 /min BMI (Body Mass Index) 28.1 kg/m2 Results Description No Information Available Procedures Date Code Description Status 04/30/2021 29447 Debridement 6-10 Nails Electric Completed 01/25/2021 38770 Debridement 6-10 Nails Electric Completed Medical Devices Description No Information Available Encounters Description No Information Available Assessments Date Code Description Provider 04/30/2021 B35.1 Tinea unguium Wil Morales, RAKESH 04/30/2021 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
--- OUTSIDE RECORDS SUMMARY | 2021-08-26 08:28 | CCD ---
Author Author [facility] Organization [facility] Address Unknown Phone Unavailable Care Team Providers Care Actuarial Consultant Name Role Phone Dwayne Kristen Unavailable PROBLEMS Type Condition ICD9-CM Code [id number] Code Onset Dates Condition S tatus W/U Status Risk SNOMED Code Notes Problem Osteoporosis M81.0 Active confirmed 2957770 6 Problem Panic disorder F41.0 Active confirmed 51762 1005 Problem Diabetes mellitus, type 2 E11.9 Active confirmed 55222118 Problem Essential (primary) hypertension I10 Active conf irmed 68521392 Problem Seizure disorder G40.909 Active confirmed 12 6322340 Problem Hyperlipidemia E78.5 Active confirmed 70322 004 Problem Other secondary hypertension I15.8 Active confirme d 09158466 Problem Vitamin D deficiency, unspecified E55.9 Active con firmed 29808368 Problem Chronic stable angina I20.8 Active confirmed 222864349 Problem Arteriosclerotic coronary artery disease I25.10 Active confirmed 384510940286493 Problem Calculus of gallbladder K80.20 Active confirmed 50951702 Problem Bipolar disorder F31.9 Active confirmed 137 54540 ALLERGIES Allergen (clinical drug ingredient) Drug/Non Drug Allergy do cumented on EMR Reaction Allergy Type Onset Date Status hydroxyzine HydrOXYzine HCl([facility] Code:[address]-61) Unknown D rug Allergy 09/02/2019 Active penicillin V Penicillin Rash Drug Allergy Active ENCOUNTERS from 1950 to 2021-08-12 Encounter Location Date Provider Diagnosis [facility] [address] [facility] [phone] [place] [address] Aug, Kristen Rice IMMUNIZATIONS Vaccine Route Administration Date Status Influenza Pharmacy Given Unknown Aug 10, 2021 Adminis tered Influenza 18 yrs & older Flublok IM [...] School Language: Question Answer Notes Languages spoken: Kiswahili Buddhist: Question Answer Notes Buddhist 03 Sikh Sexual Hx: Question Answer Notes Had sex [...] Orally weekly Active Vitamin D3 1.25 MG (49690 UT) TAKE 1 CAPSULE BY MOUTH EVERY [...] than 3 doses Active OneTouch Delica Plus [id number] - DIRECTED THREE TIMES A DAY for [...] Information RESULTS No Results REASON FOR VISIT Flu shot MEDICAL (GENERAL) HISTORY Type Description Date Medical History HTN- Renal US (04/2016 )- Les s than 50% stenosis, not flow limiting, incidental gall stones Medical History Hyperlipidemia Medical History CAD sp CABG, SACHIN-05/31/19 NST low risk, LEVF 80%-Dr Arboleda-[facility] //LVH, mild TR/AR by 12/2018 [facility] [...] - SECTION X 2 Surgical History HYSTERECTOMY 1978 Surgical History CAROTID ARTERY REPAIR Surgical History TRIPLE BYPASS (HEART) 12/12 Surgical [...] WEEKLY for 90 Vitamin D3 1.25 MG (40155 UT) TAKE 1 CAPSULE BY MOUTH EVERY RENITA H for 90 Isosorbide Mononitrate ER 120 MG TAKE ONE TABLET BY MOUTH EV NATHANIEL MORNING for 90 OneTouch Delica Plus [id number] - DIRECTED THREE TIMES A DAY or 90 Next Appt Details Provider Name:Kristen Rice, 2020-10 07:30:00 AM, [address] [facility], , [place], [address], Insurance Providers Payer Name Payer Address Payer Phone Insured Name Patient Relati onship to Insured Coverage Start Date Coverage End Date MEDICAID YES.[employer] [place] [address] [facility] [id number] MAXIMILIAN RUIZ I self AETNA MEDICARE AETNA [employer] INSURANCE [employer] [address] [facility] [address] MAXIMILIAN RUIZ I self
--- OUTSIDE RECORDS SUMMARY | 2021-08-26 08:28 | CCD | Continuity of Care Document ---
Author Author Suellen RAMÍREZ MD Organization Unknown Address [address] [place] [address] Phone [phone] Care Team Providers Care Baby Stroller Rental Clerk Name Role Phone Jose Norton MD AUTM [phone] Problems Active Problems Provider Date Carotid artery [...] day 90tabs I70.213 Damon Ramírez MD 07/23/2021 Nitroglycerin 0.4mg Tablets Sub one tablet as needed for chest pain. May take a maximum of 3 tablets within a 15 minute period 60tabs Damon Ramírez MD 07/23/2021 Crestor 20mg Tablets [...] x day Unknown Vitamin D (Ergocalciferol) 1.25mg (71068 Ut) Capsules 1 po monthly Unknown Immunizations [...] Echocardiogram <pending> Procedures Date Code Description Status 07/23/2021 88530 Office/Outpatient Established Lo w MDM 20-29 Min Completed 07/11/2021 54144 Duplex Scan Lower Ex trem Artery Bypass Graft Complete Bilateral Completed 06/18/2021 37887 Office/Outpatient Established Hi gh MDM 40-54 Min Completed 06/04/2021 22342 Cardiovascular Stress Test Inter pretation & Report Only Completed 06/04/2021 97631 Cardiovascular Stress Test Physi kaelyn Supervision Only Completed 06/04/2021 57486 Myocardial Perfusion Imaging Tomographic (Spect) Multiple Studies Completed 03/28/2021 41566 Echocardiography, Tranthoracic C omplete Image Documentation Completed Medical Devices Description No Information Available Encounters Type Date Location Provider Dx Diagnosis Office Visit 07/23/2021 1:30p [place] [facility] Damon Ramírez MD I10 Essential (primary) hypertension E78.2 Mixed hyperlipidemia E11.9 Type 2 diabetes mellitus wit hout complications I25.10 Athscl heart disease of [place] ve coronary artery w/o ang pctrs I34.0 Nonrheumatic mitral (valve) insufficiency Z95.1 Presence of aortocoronary by pass graft I70.213 Athscl [place] arteries of ex trm w intrmt veronica, bi legs Office Visit 06/18/2021 2:00p [place] [facility] Brii Arias RN, DIABETES SPECIALIST I25.10 Athscl heart disease of [place] coronary artery w/o ang pctrs I10 Essential (primary) hyperten cornelia E11.9 Type 2 diabetes mellitus wit hout complications E78.2 Mixed hyperlipidemia I65.23 Occlusion and stenosis of bi lateral carotid arteries I34.0 Nonrheumatic mitral (valve) insufficiency Assessments Date Code Description Provider 07/23/2021 I10 Essential (primary) hypertension Damon Ramírez MD 07/23/2021 E78.2 Mixed hyperlipidemia Damon sidhu MD 07/23/2021 E11.9 Type 2 diabetes mellitus without complications Damon Ramírez MD 07/23/2021 I25.10 Atherosclerotic hear t disease of [place] coronary artery without angina pectoris Damon Ramírez MD 07/23/2021 I34.0 Nonrheumatic mitral (valve) insu fficiency Daomn Ramírez MD 07/23/2021 Z95.1 Presence of aortocoronary bypass graft Damon Ramírez MD 07/23/2021 I70.213 Atherosclerosis of n ative arteries of extremities with intermittent claudication, bilateral legs Damon Ramírez MD 07/11/2021 E11.9 Type 2 diabetes mellitus without complications Tre Centeno MD 07/11/2021 I25.10 Atherosclerotic hear t disease of [place] coronary artery without angina pectoris Tre Centeno MD 07/11/2021 I10 Essential (primary) hypertension Tre Centeno MD 07/11/2021 I73.9 Peripheral vascular disease, uns pecified Tre Centeno MD 06/18/2021 I25.10 Atherosclerotic hear t disease of [place] coronary artery without angina pectoris Brii Arias RN, [facility] 06/18/2021 I10 Essential (primary) hypertension Brii Arias RN, [facility] 06/18/2021 E11.9 Type 2 diabetes mellitus without complications Brii Arias RN, [facility] 06/18/2021 E78.2 Mixed hyperlipidemia Brii sellers RN, [facility] 06/18/2021 I65.23 Occlusion and stenosis of bilate ral carotid arteries Brii Arias RN, [facility] 06/18/2021 I34.0 Nonrheumatic mitral (valve) insu fficiency Brii Arias RN, [facility] 06/04/2021 I25.10 Atherosclerotic hear t disease of [place] coronary artery without angina pectoris Gio Arboleda MD 06/04/2021 Z95.1 Presence of aortocoronary bypass graft Gio Arboleda MD 03/28/2021 I34.0 Nonrheumatic mitral (valve) insu fficiency Suhail Albert MD 03/28/2021 I10 Essential (primary) hypertension Suhail Albert MD 03/28/2021 I25.10 Atherosclerotic hear t disease of [place] coronary artery without angina pectoris Suhail Albert MD Plan of Treatment Future Appointment(s):* 08/21/2021 10:00 am - Suhail Albert MD at [facility] * 02/18/2022 1:15 pm - [facility] HOME THEATRE TECHNICIAN/Device (415) at [place] [facility] 07/23/2021 - Damon Ramírez MD* I10 Essential (primary) hypertension * E78.2 Mixed hyperlipidemia * E11.9 Type 2 diabetes mellitus without complications * I25.10 Atherosclerotic heart disease of [place] coronary artery without angina pectoris * I34.0 Nonrheumatic mitral (valve) insufficiency * Z95.1 Presence of aortocoronary bypass graft * I70.213 Atherosclerosis of [place] arteries of extremities with intermittent claudication, bilateral [...] SFA and assess clinical response before attempting DRIER BELT CONVEYOR of left SFA. I will Start the [...]
--- OUTSIDE RECORDS SUMMARY | 2021-08-26 08:29 | CCD | Continuity of Care Document ---
Author Author Delvin Galarza ([id number])Suellen I Organization Unknown Address [address] [place] [address] Phone [phone] Care Team Providers Care Flooring Machine Feeder Name Role Phone Jose Norton MD AUTM [phone] Problems Active Problems Provider Date Carotid artery occlusion Onset: 04/11/20 14 Essential hypertension Onset: 04/11/2014 Coronary arteriosclerosis Onset: 012 Mixed hyperlipidemia Norman Juares MD Onset: 03/18/2016 History of coronary artery bypass grafting Christiano Draper MD Onset: 03/25/2016 Mitral valve disorder Gio Arboleda MD Onset: 05/20/2016 Precordial pain Irving Stockton MD Onset: 06/24/2018 Type 2 diabetes mellitus Luis Mcmillan MD Onset: 11/11/19 17 Pure hypercholesterolemia Luis Mcmillan MD Onset: 017 Dyspnea Luis Mcmillan MD Onset: 11/11/2016 Old myocardial infarction Norman Juares MD Onset: 016 Patient post percutaneous transluminal coronary angioplasty Norman Juares MD Onset: 07/09/2016 Social History Type Date Description Comments Sex Unknown Tobacco Use Start: Unknown 1 ppd x 45 yrs ETOH Use 10/12/1997 Quit Tobacco Use Start: Unknown End: Patient is a former smoker Recreational Drug Use Denies Drug Use Allergies, Adverse Reactions, Alerts Active Allergies Criticality Reaction | Severity Comments [...] by mouth twice a day Unknown Lamotrigine 100mg Tablets 1 tabs by mouth 2x day Unknown Metformin HCL 500mg Tablets 1 by mouth twice a day Unknown Calcium 600 600mg Tablets 1 by mouth every day Unknown Alendronate Sodium 70mg Tablets 1 by mouth once weekly Unknown Nitroglycerin 0.4mg Tablets Sub one tab under the tongue for chest pain, may repeat in 5 minutes 2 times, if no relief call 911 Unknown Vitamin D3 1.25mg (43312 Ut) Capsu les 1 po monthly Unknown Vitamin B-12 1000mcg Tablets 1 po daily Unknown Immunizations Description No Information Available Vital Signs Date Vital Result Comment 01/24/2021 8:04am BP Systolic 146 mmHg BP Diastolic 80 mmHg Heart Rate 80 /min Height 59 inches 4'11" Weight 130.00 lb BMI (Body Mass Index) 26.3 kg/m2 11/08/2019 1:06pm BP Systolic 144 mmHg BP Diastolic 62 mmHg Heart Rate 76 /min Height 59 inches 4'11" Weight 135.00 lb BMI (Body Mass Index) 27.3 kg/m2 Results Test Acquired Date Facility Test Result H/L Range Note Order 03/28/2021 [facility] Echocardiogram <pending> Xray 01/24/2021 [facility] Myocardial Perfusion Imaging Planar Multi Studies <pending> Procedures Date Code Description Status 06/04/2021 80258 Cardiovascular Stress Test Inter pretation & Report Only Completed 06/04/2021 82380 Cardiovascular Stress Test Physi kaelyn Supervision Only Completed 06/04/2021 25366 Myocardial Perfusion Imaging Tomographic (Spect) Multiple Studies Completed 03/28/2021 40695 Echocardiography, Tranthoracic C omplete Image Documentation Completed 01/24/2021 18808 Office/Outpatient Established Mo d MDM 30-39 Min Completed Medical Devices Description No Information Available Encounters Type Date Location Provider Dx Diagnosis Office Visit 01/24/2021 8:00a [facility] Brii Arias RN, STEEL DIVISION SUPERVISOR I34.0 Nonrheumatic mitral (valve) insufficiency I10 Essential (primary) hyperten cornelia I25.10 Athscl heart disease of [place] ve coronary artery w/o ang pctrs E11.9 Type 2 diabetes mellitus wit hout complications E78.2 Mixed hyperlipidemia I65.23 Occlusion and stenosis of bi lateral carotid arteries Assessments Date Code Description Provider 06/04/2021 I25.10 Atherosclerotic hear t disease of [place] coronary artery without angina pectoris Gio Arboleda MD 06/04/2021 Z95.1 Presence of aortocoronary bypass graft Gio Arboleda MD 03/28/2021 I34.0 Nonrheumatic mitral (valve) insu fficiency Suhail Albert MD 03/28/2021 I10 Essential (primary) hypertension Suhail Albert MD 03/28/2021 I25.10 Atherosclerotic hear t disease of [place] coronary artery without angina pectoris Suhail Albert MD 01/24/2021 I34.0 Nonrheumatic mitral (valve) insu fficiency Brii Arias RN, STEEL DIVISION SUPERVISOR 01/24/2021 I10 Essential (primary) hypertension Brii Arias RN, STEEL DIVISION SUPERVISOR 01/24/2021 I25.10 Atherosclerotic hear t disease of [place] coronary artery without angina pectoris Brii Arias RN, STEEL DIVISION SUPERVISOR 01/24/2021 E11.9 Type 2 diabetes mellitus without complications Brii Arias RN, STEEL DIVISION SUPERVISOR 01/24/2021 E78.2 Mixed hyperlipidemia Brii sellers RN, STEEL DIVISION SUPERVISOR 01/24/2021 I65.23 Occlusion and stenosis of bilate ral carotid arteries Brii Arias RN, STEEL DIVISION SUPERVISOR Plan of Treatment Future Appointment(s):* 06/18/2021 2:00 pm - [place] ARMHOLE SEWER/Device (415) at [facility] 01/24/2021 - Brii Arias RN, STEEL DIVISION SUPERVISOR* I34.0 Nonrheumatic mitral (valve) insufficiency * I10 Essential (primary) hypertension * I25.10 Atherosclerotic heart disease of [place] coronary artery without angina pectoris * E11.9 Type 2 diabetes mellitus without complications * E78.2 Mixed hyperlipidemia * I65.23 Occlusion and stenosis of bilateral carotid arteries* Recommendations: * At this time the patient has been advised that she should have a repeat echocardiogram to monitor her progression in her valvular disease. Her LV function remains well preserved. I have reviewed the symptoms that she needs to monitor for. I am not making any other changes in her medical regimen. She is to continue follow-up with Dr. Fierro for her carotid disease. She will have a non-walking nuclear stress test completed due to her coronary artery disease carotid disease diabetes and dyslipidemia. She is unable to walk the treadmill due to claudication symptoms. With her diabetes and history of hypoglycemia during her previous stress testing she has been asked to hold her diabetic meds in the morning to hopefully prevent a repeat episode of hypoglycemia. She will have a clinical follow-up in June after testing is completed. If she has any symptoms in the interim she will call the office for an evaluation. Patient was seen in our [place] [facility] today. Functional Status Description No Information Available Mental Status Description No Information Available Referrals Description No Information Available
--- OUTSIDE RECORDS SUMMARY | 2021-08-26 08:29 | CCD | Continuity of Care Document ---
Author Author Suellen MORALES I DPM Organization Unknown Address [address] [place] [address], [address] [place] [id number] Phone [phone] Care Team Providers Care Warehouse Distribution Manager Name Role Phone Jose Norton M.D. [phone] Problems Active Problems Provider Date Hallux valgus [...] Black M.D.,[place] Metformin HCL 500mg Tablets Black M.D.,[place] Carbamazepine 100mg Chewtabs [facility],[place] Brilinta 90mg Tablets Take One Tablet By Mouth Twice A Day Unknown Ibandronate Sodium 150mg Tablets Take One Tablet By Mouth On The First Day Of Every Month With Water On Unknown Vitamin D (Ergocalciferol) 08287Zuqn Capsules Take 1 Capsule By Mouth Once A Month Unkn own Sulfamethoxazole/Trimethoprim DS 800-160mg Tablets Black M.D.,[place] Levetiracetam 500mg Tablets [facility] Nitroglycerin 0.4mg Tablets Sub Black M.D.,[place] Vimpat 50mg Tablets [facility],[place] Lamotrigine 25mg Tablets [facility] Metoprolol Tartrate 50mg Tablets Black M.D.,[place] Amlodipine Besylate 5mg Tablets Black M.D.,[place] Ranexa 500mg Tablets ER 12HR Black M.D.,[place] Lamotrigine 100mg Tablets [facility],[place] Lorazepam 2mg Tablets Black M.D.,[place] Rosuvastatin Calcium 20mg Tablets Black M.D.,[place] Isosorbide Mononitrate ER 120mg Tablets ER 24HR Black M.D.,[place] Immunizations Description No Information Available Vital Signs Date Vital Result Comment 09/07/2017 11:18am Height 59 inches 4'11" Weight 139.00 lb BP Systolic 164 mmHg BP Diastolic 77 mmHg Heart Rate 58 /min BMI (Body Mass Index) 28.1 kg/m2 Results Description No Information Available Procedures Date Code Description Status 04/30/2021 11927 Debridement 6-10 N[employer] Completed 01/25/2021 06527 Debridement 6-10 [employer] Completed Medical Devices Description No Information Available Encounters Description No Information Available Assessments Date Code Description Provider 04/30/2021 B35.1 Tinea unguium Wil Morales, RAKESH 04/30/2021 E11.42 Type 2 diabetes mellitus with di abetic polyneuropathy Wil Morales DPM 01/25/2021 B35.1 Tinea traeuium Wil Moralse, RAKESH 01/25/2021 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
--- OUTSIDE RECORDS SUMMARY | 2021-08-26 08:29 | CCD ---
Author Author [facility] Organization [facility] Address Unknown Phone Unavailable Care Team Providers Care Supervisor Powdered Sugar Name Role Phone Brii Puente Unavailable PROBLEMS Type Condition ICD9-CM Code [id number] Code Onset Dates Condition S tatus W/U Status Risk SNOMED Code Notes Problem Osteoporosis M81.0 Active confirmed 9456263 6 Problem Panic disorder F41.0 Active confirmed 28709 1005 Problem Diabetes mellitus, type 2 E11.9 Active confirmed 28202058 Problem Essential (primary) hypertension I10 Active conf irmed 85710383 Problem Seizure disorder G40.909 Active confirmed 12 0221720 Problem Hyperlipidemia E78.5 Active confirmed 82672 004 Problem Other secondary hypertension I15.8 Active confirme d 26192004 Problem Vitamin D deficiency, unspecified E55.9 Active con firmed 89318692 Problem Chronic stable angina I20.8 Active confirmed 322500134 Problem Arteriosclerotic coronary artery disease I25.10 Active confirmed 127344420275884 Problem Calculus of gallbladder K80.20 Active confirmed 00573908 Problem Bipolar disorder F31.9 Active confirmed 137 19986 ALLERGIES Allergen (clinical drug ingredient) Drug/Non Drug Allergy do cumented on EMR Reaction Allergy Type Onset Date Status hydroxyzine HydrOXYzine HCl([facility] Code:[address]-55) Unknown D rug Allergy 09/02/2019 Active PENICILIN Rash Non Drug Allergy Active ENCOUNTERS from 1950 to 2021-06-04 Encounter Location Date Provider Diagnosis [address] [phone] [place] [address] May, Brii Puente Panic disorder F41.0 IMMUNIZATIONS Vaccine Route Administration Date Status Influenza [...] School Language: Question Answer Notes Languages spoken: Chinese Restoration: Question Answer Notes Restoration 03 Anabaptism Sexual Hx: Question Answer Notes Had sex [...] Notes Start Da te End Date Status LaMICtal 150 MG 1 tab Orally Twice a day Active metFORMIN HCl 500 MG 1 tablet with a meal Orally twice daily Active Aspir-81 81 MG 1 tablet Orally Once a day Active Alcohol Prep 70 % as directed topically Daily for 90 day(s) Jul, Active Metoprolol Tartrate 50 MG 1 tablet with food Orally Twice a day Active LORazepam 0.5 MG 1 tab Orally bid for 30 days May, Active Alendronate Sodium 70 MG 1 tablet Orally weekly Active Calcium Carb-Cholecalciferol 600-200 MG-UNIT TAKE 1 TA BLET BY MOUTH ONCE A DAY WITH A MEAL for 90 Active Amlodipine Besylate 5 MG TAKE ONE TABLET BY MOUTH TWICE A DAY for 90 Active Safety Seal Miscellaneous 1 as directed sharp container Daily fo r 30 Days Oct, Active Lisinopril 20 MG 1 tablet Orally Once a day Active Blood Glucose Test - one touch subcutaneously tid for 90 days Active OneTouch Delica Plus [id number] - DIRECTED THREE TIMES A DAY for 90 Active Vitamin D3 1.25 MG (13789 UT) TAKE 1 CAPSULE BY MOUTH EVERY MONTH for 84 Active Nitrostat 0.4 MG 1 tablet under the tongue Alex blingual 1 tab onset of chest pain repeat in 5 mts no more than 3 doses Active Isosorbide Mononitrate ER 120 MG TAKE 1 TABLET BY MOUT H ONCE A DAY IN THE MORNING for 90 Active amLODIPine Besylate 5 MG 1 tablet Orally once daily Active Calcium + D3 600-200 MG-UNIT 1 tablet with a meal Orally Onc e a day for 90 days Active OneTouch Verio w/Device as directed E11.9 bid for 99 days Active Calcium + D3 600-200 MG-UNIT 1 tablet with a meal Oral ly Once a day for 90 day(s) Active Rosuvastatin Calcium 20 MG 1 tablet Orally Once a day Active PROCEDURES No Information RESULTS No Results REASON FOR VISIT New Refill Request MEDICAL (GENERAL) HISTORY Type Description Date Medical History HTN- Renal US (04/2016 )- Les s than 50% stenosis, not flow limiting, incidental gall stones Medical History Hyperlipidemia Medical History CAD sp CABG, SACHIN-05/31/19 NST low risk, LEVF 80%-[facility] //LVH, mild TR/AR by 12/2018 [facility] [...] HYSTERECTOMY 1978 Surgical History CAROTID ARTERY REPAIR 12/12, Surgical History TRIPLE BYPASS (HEART) 12/12 Surgical History APPENDECTOMY 1967 Goals Section No Information Health Concerns No Information MEDICAL EQUIPMENT No Information MENTAL STATUS No Information FUNCTIONAL STATUS No Information ASSESSMENTS Encounter Date Diagnosis Assessment Notes Treatment Notes Treatm ent Clinical Notes May, Panic disorder (ICD-10 - F41.0) PLAN OF TREATMENT Medication Medication Name Sig Start Date Stop Date LORazepam 0.5 MG 1 tab Orally bid for 30 days May, Amlodipine Besylate 5 MG TAKE ONE TABLET BY MOUTH TWICE A DAY fo r 90 Isosorbide Mononitrate ER 120 MG TAKE 1 TABLET BY MOUT H ONCE A DAY IN THE MORNING for 90 OneTouch Delica Plus [id number] - DIRECTED THREE TIMES A DAY f or 90 Metoprolol Tartrate 50 MG 1 tablet with food Orally Twice a day LaMICtal 150 MG 1 tab Orally Twice a day amLODIPine Besylate 5 MG 1 tablet Orally once daily Lisinopril 20 MG 1 tablet Orally Once a day metFORMIN HCl 500 MG 1 tablet with a meal Orally twice daily Rosuvastatin Calcium 20 MG 1 tablet Orally Once a day Aspir-81 81 MG 1 tablet Orally Once a day Calcium + D3 600-200 MG-UNIT 1 tablet with a meal Orally Onc e a day for 90 days Alendronate Sodium 70 MG 1 tablet Orally weekly Nitrostat 0.4 MG 1 tablet under the tongue Alex blingual 1 tab onset of chest pain repeat in 5 mts no more than 3 doses Next Appt Details Provider Name:Kristen Rice, 2020-10 07:30:00 AM, [address] [facility], , [place], [address], Insurance Providers Payer Name Payer Address Payer Phone Insured Name Patient Relati onship to Insured Coverage Start Date Coverage End Date AETNA MEDICARE A[employer]URANCE [facility] [address] [facility] [phone] MAXIMILIAN RUIZ I self MEDICAID [facility] [email or web address] [address] [facility] [id number] MAXIMILIAN RUIZ I self
--- OUTSIDE RECORDS SUMMARY | 2021-08-26 08:29 | CCD | Continuity of Care Document ---
Author Author Suellen ARIAS I RN Organization Unknown Address [address] [place] [address] Phone [phone] Care Team Providers Care Camp Attendant Name Role Phone Jose Norton MD AUTM [phone] Problems Active Problems Provider Date Carotid artery [...] x day Unknown Vitamin D (Ergocalciferol) 1.25mg (76695 Ut) Capsules 1 po monthly Unknown Immunizations [...] Studies <pending> Procedures Date Code Description Status 06/18/2021 14312 Office/Outpatient Established [facility] MDM 40-54 Min Completed 06/04/2021 60897 Cardiovascular Stress Test Inter pretation & Report Only Completed 06/04/2021 79530 Cardiovascular Stress Test Physi kaelyn Supervision Only Completed 06/04/2021 10142 Myocardial Perfusion Imaging Tomographic (Spect) Multiple Studies Completed 03/28/2021 46404 Echocardiography, Tranthoracic C omplete Image Documentation Completed 01/24/2021 10200 Office/Outpatient Established Mo d [facility] 30-39 Min Completed Medical Devices Description No Information Available Encounters Type Date Location Provider Dx Diagnosis Office Visit 06/18/2021 2:00p [place] [facility] Brii Arias RN, [facility] I25.10 Athscl heart disease of [place] coronary artery w/o ang pctrs I10 Essential (primary) hyperten cornelia E11.9 Type 2 diabetes mellitus wit hout complications E78.2 Mixed hyperlipidemia I65.23 Occlusion and stenosis of bi lateral carotid arteries I34.0 Nonrheumatic mitral (valve) insufficiency Office Visit 01/24/2021 8:00a [place] [facility] Brii Arias RN, REHABILITATION SUPERVISOR I34.0 Nonrheumatic mitral (valve) insufficiency I10 Essential (primary) hyperten cornelia I25.10 Athscl heart disease of [place] coronary artery w/o ang pctrs E11.9 Type 2 diabetes mellitus wit hout complications E78.2 Mixed hyperlipidemia I65.23 Occlusion and stenosis of bi lateral carotid arteries Assessments Date Code Description Provider 06/18/2021 I25.10 Atherosclerotic hear t disease of [place] coronary artery without angina pectoris Brii Arias RN, [facility] 06/18/2021 I10 Essential (primary) hypertension Brii Arias RN, [facility] 06/18/2021 E11.9 Type 2 diabetes mellitus without complications Brii Arias RN, [facility] 06/18/2021 E78.2 Mixed hyperlipidemia Brii sellers RN, [facility] 06/18/2021 I65.23 Occlusion and stenosis of bilate ral carotid arteries Brii Arias RN, [facility] 06/18/2021 I34.0 Nonrheumatic mitral (valve) insu fficiency Brii Arias RN, [facility] 06/04/2021 I25.10 Atherosclerotic hear t disease of [place] coronary artery without angina pectoris Gio Arboleda MD 06/04/2021 Z95.1 Presence of aortocoronary bypass graft Gio Arboleda MD 03/28/2021 I34.0 Nonrheumatic mitral (valve) insu fficiency Shuail Albert MD 03/28/2021 I10 Essential (primary) hypertension Suhail Albert MD 03/28/2021 I25.10 Atherosclerotic hear t disease of [place] coronary artery without angina pectoris Suhail Albert MD 01/24/2021 I34.0 Nonrheumatic mitral (valve) insu fficiency Brii Arias RN, [facility] 01/24/2021 I10 Essential (primary) hypertension Brii Arias RN, [facility] 01/24/2021 I25.10 Atherosclerotic hear t disease of [place] coronary artery without angina pectoris Brii Arias RN, REHABILITATION SUPERVISOR 01/24/2021 E11.9 Type 2 diabetes mellitus without complications Brii Arias RN, [facility] 01/24/2021 E78.2 Mixed hyperlipidemia Brii sellers RN, [facility] 01/24/2021 I65.23 Occlusion and stenosis of bilate ral carotid arteries Brii Arias RN, REHABILITATION SUPERVISOR Plan of Treatment Future Appointment(s):* 02/18/2022 1:15 pm - [facility] PHYSICAL ANTHROPOLOGIST/Device (415) at [place] [facility] * 07/18/2021 1:30 pm - [facility] at [place] [facility] 06/18/2021 - Brii Arias RN, REHABILITATION SUPERVISOR* I25.10 Atherosclerotic heart disease of [place] coronary artery without angina pectoris * I10 Essential (primary) hypertension * E11.9 Type 2 diabetes mellitus without complications * E78.2 Mixed hyperlipidemia * I65.23 Occlusion and stenosis of bilateral carotid arteries * I34.0 Nonrheumatic mitral (valve) insufficiency* Recommendations:* Currently Suellen is experiencing some claudication discomfort. I have asked that she complete an arterial duplex of her lower extremities. She continues to follow with Dr. Fierro in regards to her carotid disease. I have encouraged her to toribio cotton to try to exercise as much as possible now that she is at a senior housing. Her blood pressure does remain labile and she does take this at home states that it is usually much lower first thing in the morning she does not take it thereafter. She is to try to continue to watch her diet choices to get her hemoglobin A1c down. She should have a follow-up in February 2022. If there is any problems in the interim she will call for an evaluation sooner. Patient was seen in the [place] office and plan of care discussed with Dr. Juares. Functional Status Description No Information Available Mental Status Description No Information Available Referrals Description No Information Available
--- OUTSIDE RECORDS SUMMARY | 2021-08-26 08:29 | CCD | Continuity of Care Document ---
Author Author Suellen ARIAS I RN Organization Unknown Address [address] [place] [address] Phone [phone] Care Team Providers Care Audiology Director Name Role Phone Jose Norton MD AUTM [phone] Problems Active Problems Provider Date Carotid artery [...] x day Unknown Vitamin D (Ergocalciferol) 1.25mg (58785 Ut) Capsules 1 po monthly Unknown Immunizations [...] <pending> Procedures Date Code Description Status 06/18/2021 34073 Office/Outpatient Established [facility] MDM 40-54 Min Completed 06/04/2021 51995 Cardiovascular Stress Test Inter pretation & Report Only Completed 06/04/2021 83871 Cardiovascular Stress Test Physi kaelyn Supervision Only Completed 06/04/2021 07044 Myocardial Perfusion Imaging Tomographic (Spect) Multiple Studies Completed 03/28/2021 09854 Echocardiography, Tranthoracic C omplete Image Documentation Completed 01/24/2021 42719 Office/Outpatient Established Mo d [facility] 30-39 Min Completed Medical Devices Description No Information Available Encounters Type Date Location Provider Dx Diagnosis Office Visit 06/18/2021 2:00p [place] [facility] Brii Arias RN, [facility] I25.10 Athscl heart disease of [place] coronary artery w/o ang pctrs I10 Essential (primary) hyperten cornelia E11.9 Type 2 diabetes mellitus wit hout complications E78.2 Mixed hyperlipidemia I65.23 Occlusion and stenosis of bi lateral carotid arteries I34.0 Nonrheumatic mitral (valve) insufficiency Office Visit 01/24/2021 8:00a [place] [facility] Brii Arias RN, LAST MARKER I34.0 Nonrheumatic mitral (valve) insufficiency I10 Essential (primary) hyperten cornelia I25.10 Athscl heart disease of [place] coronary artery w/o ang pctrs E11.9 Type 2 diabetes mellitus wit hout complications E78.2 Mixed hyperlipidemia I65.23 Occlusion and stenosis of bi lateral carotid arteries Assessments Date Code Description Provider 06/18/2021 I25.10 Atherosclerotic hear t disease of [place] coronary artery without angina pectoris Brii Arias RN, [facility] 06/18/2021 I10 Essential (primary) hypertension Brii Arias RN, [facility] 06/18/2021 E11.9 Type 2 diabetes mellitus without complications Brii Arias RN, [facility] 06/18/2021 E78.2 Mixed hyperlipidemia Brii sellers RN, [facility] 06/18/2021 I65.23 Occlusion and stenosis of bilate ral carotid arteries Brii Arias RN, [facility] 06/18/2021 I34.0 Nonrheumatic mitral (valve) insu fficiency Brii Arias RN, [facility] 06/04/2021 I25.10 Atherosclerotic hear t disease of [place] coronary artery without angina pectoris Gio Arboleda MD 06/04/2021 Z95.1 Presence of aortocoronary bypass graft Gio Arboleda MD 03/28/2021 I34.0 Nonrheumatic mitral (valve) insu fficiency Suhail Albert MD 03/28/2021 I10 Essential (primary) hypertension Suhail Albert MD 03/28/2021 I25.10 Atherosclerotic hear t disease of [place] coronary artery without angina pectoris Suhail Albert MD 01/24/2021 I34.0 Nonrheumatic mitral (valve) insu fficiency Brii Arias RN, [facility] 01/24/2021 I10 Essential (primary) hypertension Brii Arias RN, [facility] 01/24/2021 I25.10 Atherosclerotic hear t disease of [place] coronary artery without angina pectoris Brii Arias RN, LA[employer] MARKER 01/24/2021 E11.9 Type 2 diabetes mellitus without complications Brii Arias RN, [facility] 01/24/2021 E78.2 Mixed hyperlipidemia Brii sellers RN, [facility] 01/24/2021 I65.23 Occlusion and stenosis of bilate ral carotid arteries Brii Arias RN, LAST MARKER Plan of Treatment Future Appointment(s):* 02/18/2022 1:15 pm - Delvin EELER/Device (415) at [place] [facility] * 07/18/2021 1:30 pm - [facility] at [place] [facility] 06/18/2021 - Brii Arias RN, LAST MARKER* I25.10 Atherosclerotic heart disease of [place] coronary artery without angina pectoris * I10 [...] evaluation sooner. Patient was seen in the [place] office and plan of care discussed with Dr. Juares. Functional Status Description No Information Available Mental Status Description No Information Available Referrals Description No Information Available
--- OUTSIDE RECORDS SUMMARY | 2021-08-26 08:29 | CCD ---
Author Author [facility] Organization [facility] Address Unknown Phone Unavailable Care Team Providers Care Marketing Support Manager Name Role Phone Radha Ricey Unavailable PROBLEMS Type Condition ICD9-CM Code CIW10-YC Code Onset Dates Condition S tatus W/U Status Risk SNOMED Code Notes Problem Osteoporosis M81.0 Active confirmed 3109722 6 Problem Panic disorder F41.0 Active confirmed 85966 1005 Problem Diabetes mellitus, type 2 E11.9 Active confirmed 58355800 Problem Essential (primary) hypertension I10 Active conf irmed 13524354 Problem Seizure disorder G40.909 Active confirmed 12 2995992 Problem Hyperlipidemia E78.5 Active confirmed 29473 004 Problem Other secondary hypertension I15.8 Active confirme d 05998484 Problem Vitamin D deficiency, unspecified E55.9 Active con firmed 44354474 Problem Chronic stable angina I20.8 Active confirmed 860957460 Problem Arteriosclerotic coronary artery disease I25.10 Active confirmed [id number] Problem Calculus of gallbladder K80.20 Active confirmed 75953482 Problem Bipolar disorder F31.9 Active confirmed 137 87076 ALLERGIES Allergen (clinical drug ingredient) Drug/Non Drug Allergy do cumented on EMR Reaction Allergy Type Onset Date Status hydroxyzine HydrOXYzine HCl([facility] Code:[address]-85) Unknown D rug Allergy 09/02/2019 Active PENICILIN Rash Non Drug Allergy Active ENCOUNTERS from 1950 to 2021-07-02 Encounter Location Date Provider Diagnosis [facility] [address] [phone] [place] [address] Jun, Kristen Rice Panic disorder F41.0 IMMUNIZATIONS Vaccine Route Administration [...] School Language: Question Answer Notes Languages spoken: Ivorian Adventism: Question Answer Notes Adventism 03 Uatsdin Sexual Hx: Question Answer Notes Had sex [...] Orally weekly Active Vitamin D3 1.25 MG (01304 UT) TAKE 1 CAPSULE BY MOUTH EVERY MONTH for Active LaMICtal 150 MG 1 tab Orally Twice a day Active SmartPay SolutionsTouch Verio w/Device as directed E11.9 bid for 99 days Active LORazepam 0.5 MG 1 tab Orally bid for 30 days Jun, Active Nitrostat 0.4 MG 1 tablet under the tongue Alex blingual 1 tab onset of chest pain repeat in 5 mts no more than 3 doses Active Safety Seal Miscellaneous 1 as directed sharp container Daily fo r 30 Days Oct, Active Aspir-81 81 MG 1 tablet Orally Once a day Active Isosorbide Mononitrate ER 120 MG TAKE ONE TABLET BY MOUTH EV NATHANIEL MORNING for 90 Active Calcium + D3 600-200 MG-UNIT 1 tablet with a meal Oral ly Once a day for 90 day(s) Active Metoprolol Tartrate 50 MG TAKE ONE TABLET BY MOUTH TWICE A D AY WITH FOOD for 90 Active Blood Glucose Test - one touch subcutaneously tid for 90 days Active amLODIPine Besylate 5 MG 1 tablet Orally once daily Active Calcium + D3 600-200 MG-UNIT 1 tablet with a meal Orally Onc e a day for 90 days Active OneTouch Delica Plus [id number] - DIRECTED THREE TIMES A DAY for 90 Active Amlodipine Besylate 5 MG TAKE ONE TABLET BY MOUTH TWICE A DAY for 90 Active Alcohol Prep 70 % as directed topically Daily for 90 day(s) Jul, Active Lisinopril 20 MG TAKE ONE TABLET BY MOUTH EVERY DAY for 90 Active metFORMIN HCl 500 MG 1 tablet with a meal Orally twice daily Active Calcium Carb-Cholecalciferol 600-200 MG-UNIT TAKE 1 TA BLET BY MOUTH ONCE A DAY WITH A MEAL for 90 Active Rosuvastatin Calcium 20 MG TAKE ONE TABLET BY MOUTH EVERY DAY for 90 Active Metoprolol Tartrate 50 MG 1 tablet with food Orally Twice a day for 90 days Active Lisinopril 20 MG 1 tablet Orally Once a day for 90 days Active OneTouch Verio - DIRECTED THREE TIMES A DAY for 90 Active PROCEDURES No Information RESULTS No Results REASON FOR VISIT script MEDICAL (GENERAL) HISTORY Type Description Date Medical History HTN- Renal US (04/2016 )- Les s than 50% stenosis, not flow limiting, incidental gall stones Medical History Hyperlipidemia Medical History CAD sp CABG, SACHIN-05/31/19 NST low risk, LEVF 80%-Dr Arboleda[facility] //LVH, mild TR/AR by 12/2018 [id number] [...] Notes Treatment Notes Treatm ent Clinical Notes Jun, Panic disorder (ICD-10 - F41.0) PLAN OF TREATMENT Medication Medication Name Sig Start Date Stop Date Lisinopril 20 MG 1 tablet Orally Once a day for 90 days OneTouch Verio - DIRECTED THREE TIMES A DAY for 90 Metoprolol Tartrate 50 MG 1 tablet with food Orally Twice a day for 90 days Rosuvastatin Calcium 20 MG TAKE ONE TABLET [...] Sodium 70 MG 1 tablet Orally weekly metFORMIN HCl 500 MG 1 tablet with a meal Orally twice daily amLODIPine Besylate 5 MG 1 tablet Orally once daily Aspir-81 81 MG 1 tablet Orally Once a day Isosorbide Mononitrate ER 120 MG TAKE ONE TABLET BY MOUTH EV NATHANIEL MORNING for 90 Lisinopril 20 MG TAKE ONE TABLET BY MOUTH EVERY DAY for 90 Alendronate Sodium 70 MG TAKE 1 TABLET BY MOUTH WEEKLY for 90 Vitamin D3 1.25 MG (25399 UT) TAKE 1 CAPSULE BY MOUTH EVERY RENITA H for 90 OneTouch Delica Plus Etmyzx53B - DIRECTED THREE TIMES A DAY f or 90 LORazepam 0.5 MG 1 tab Orally bid for 30 days Jun, Next Appt Details Provider Name:Kristen Rice, 2020-10 07:30:00 AM, [address], , [place], [address], Insurance Providers Payer Name Payer Address Payer Phone Insured Name Patient Relati onship to Insured Coverage Start Date Coverage End Date MEDICAID [employer] [address] [facility] [id number] MAXIMILIAN RUIZ I self AETNA MEDICARE AETNA [employer] INSURANCE Shoot it! [address] [facility] [phone] MAXIMILIAN RUIZ I self
--- OUTSIDE RECORDS SUMMARY | 2021-08-26 08:29 | CCD | Continuity of Care Document ---
Author Author Suellen BRO I DPM Organization Unknown Address [address] [place] [address], [address] [place] [id number] Phone [phone] Care Team Providers Care Translator And Interpreter Name Role Phone Jose Norton M.D. [phone] Problems Active Problems Provider Date Hallux valgus (acquired), unspecified foot Wil Bro DPM Onset: 09/11/2017 Type 2 diabetes mellitus with diabetic polyneuropathy Wil Bro DPM Onset: 09/11/2017 Onychomycosis Wil Bro DPM Onset: 09/11/2017 Corns and callosities Wil Bro DPM Onset: 09/11/2017 Social History Type Date Description Comments Sex Unknown ETOH Use Denies alcohol use stopped 2013 Tobacco Use Start: Unknown End: Unknown Patient is a former smoker stopped in 2002, started in Allergies, Adverse Reactions, Alerts Active Allergies Criticality Reaction | Severity Comments Date Penicillin Unable to assess criticality 09/07/2017 Codeine Unable to assess criticality 09/07/2017 Pneumococcal Capsular Polysaccharide Type 3 Vaccine Un able to assess criticality 09/07/2017 Medications Active Medications SIG Qnty Indications Ordering Provide r Date Ammonium Lactate 12% Cream apply to feet daily 280units Wil Bro DPM 09/07/2017 Lisinopril 20mg Tablets Black M.D.,[place] Aspirin Low Dose 81mg Chewtabs Chew One Tablet By Mouth Every Day Unknown Metoprolol Tartrate 100mg Tablets Black M.D.,[place] Tramadol HCL 50mg Tablets Unknown Lisinopril 10mg Tablets Black M.D.,[place] Metformin HCL 500mg Tablets Black M.D.,[place] Carbamazepine 100mg Chewtabs [facility],[place] Brilinta 90mg Tablets Take One Tablet By Mouth Twice A Day Unknown Ibandronate Sodium 150mg Tablets Take One Tablet By Mouth On The First Day Of Every Month With Water On Unknown Vitamin D (Ergocalciferol) 23512Xnmt Capsules Take 1 Capsule By Mouth Once A Month Unkn own Sulfamethoxazole/Trimethoprim DS 800-160mg Tablets Black M.D.,[place] Levetiracetam 500mg Tablets Mohit REYES,[facility] Nitroglycerin 0.4mg Tablets Sub Black M.D.,[facility] Vimpat 50mg Tablets Mohit REYES,[place] Lamotrigine 25mg Tablets [facility] REYES,[facility] Metoprolol Tartrate 50mg Tablets Black M.D.,[place] Amlodipine Besylate 5mg Tablets Black M.D.,[place] Ranexa 500mg Tablets ER 12HR Black M.D.,[facility] Lamotrigine 100mg Tablets [facility] REYES,[place] Lorazepam 2mg Tablets Black M.D.,[place] Rosuvastatin Calcium 20mg Tablets Black M.D.,[place] Isosorbide Mononitrate ER 120mg Tablets ER 24HR Black M.D.,[place] Immunizations Description No Information Available Vital Signs Date Vital Result Comment 09/07/2017 11:18am Height 59 inches 4'11" Weight 139.00 lb BP Systolic 164 mmHg BP Diastolic 77 mmHg Heart Rate 58 /min BMI (Body Mass Index) 28.1 kg/m2 Results Description No Information Available Procedures Date Code Description Status 04/30/2021 85470 Debridement 6-10 [employer] Completed 01/25/2021 03791 Debridement 6-10 [employer] Completed Medical Devices Description No Information Available Encounters Description No Information Available Assessments Date Code Description Provider 04/30/2021 B35.1 Tinea unguium Wil Bro, RAKESH 04/30/2021 E11.42 Type 2 diabetes mellitus with di abetic polyneuropathy Wil Bro DPM 01/25/2021 B35.1 Tinea unguium Wil Bro, RAKESH 01/25/2021 E11.42 Type 2 diabetes mellitus with di abetic polyneuropathy Wil Bro DPM Plan of Treatment Future Appointment(s):* 07/09/2021 2:30 pm - Wil Bro DPM at [facility] Functional Status Description No Information Available Mental Status Description No Information Available Referrals Description No Information Available
--- OUTSIDE RECORDS SUMMARY | 2021-08-26 08:29 | CCD | Continuity of Care Document ---
Author Author Suellen ARIAS I RN Organization Unknown Address [address] [place] [address] Phone [phone] Care Team Providers Care Sprayer Insecticide Name Role Phone Jose Norton MD AUTM [phone] Problems Active Problems Provider Date Carotid artery [...] x day Unknown Vitamin D (Ergocalciferol) 1.25mg (67284 Ut) Capsules 1 po monthly Unknown Immunizations [...] <pending> Procedures Date Code Description Status 06/18/2021 16814 Office/Outpatient Established [facility] MDM 40-54 Min Completed 06/04/2021 09809 Cardiovascular Stress Test Inter pretation & Report Only Completed 06/04/2021 79237 Cardiovascular Stress Test Physi kaelyn Supervision Only Completed 06/04/2021 76691 Myocardial Perfusion Imaging Tomographic (Spect) Multiple Studies Completed 03/28/2021 44024 Echocardiography, Tranthoracic C omplete Image Documentation Completed 01/24/2021 68175 Office/Outpatient Established Mo d [facility] 30-39 Min Completed Medical Devices Description No Information Available Encounters Type Date Location Provider Dx Diagnosis Office Visit 06/18/2021 2:00p [place] [facility] Brii Arias RN, [facility] I25.10 Athscl heart disease of [place] coronary artery w/o ang pctrs I10 Essential (primary) hyperten cornelia E11.9 Type 2 diabetes mellitus wit hout complications E78.2 Mixed hyperlipidemia I65.23 Occlusion and stenosis of bi lateral carotid arteries I34.0 Nonrheumatic mitral (valve) insufficiency Office Visit 01/24/2021 8:00a [place] [facility] Brii Arias RN, CHAIN MAKER LOOM CONTROL I34.0 Nonrheumatic mitral (valve) insufficiency I10 Essential (primary) hyperten cornelia I25.10 Athscl heart disease of [place] coronary artery w/o ang pctrs E11.9 Type 2 diabetes mellitus wit hout complications E78.2 Mixed hyperlipidemia I65.23 Occlusion and stenosis of bi lateral carotid arteries Assessments Date Code Description Provider 06/18/2021 I25.10 Atherosclerotic hear t disease of [place] coronary artery without angina pectoris Brii Arias RN, [facility] 06/18/2021 I10 Essential (primary) hypertension Brii Arias RN, [facility] 06/18/2021 E11.9 Type 2 diabetes mellitus without complications Brii Arias RN, [facility] 06/18/2021 E78.2 Mixed hyperlipidemia Brii sellers RN, [facility] 06/18/2021 I65.23 Occlusion and stenosis of bilate ral carotid arteries Brii Arias RN, [facility] 06/18/2021 I34.0 Nonrheumatic mitral (valve) insu fficiency Brii Arias RN, [facility] 06/04/2021 I25.10 Atherosclerotic hear t disease of [place] coronary artery without angina pectoris Gio Arboleda MD 06/04/2021 Z95.1 Presence of aortocoronary bypass graft Gio Arboleda MD 03/28/2021 I34.0 Nonrheumatic mitral (valve) insu fficiency Suhail Albert MD 03/28/2021 I10 Essential (primary) hypertension Suhail Albert MD 03/28/2021 I25.10 Atherosclerotic hear t disease of [place] coronary artery without angina pectoris Suhail Albert MD 01/24/2021 I34.0 Nonrheumatic mitral (valve) insu fficiency Brii Arias RN, [facility] 01/24/2021 I10 Essential (primary) hypertension Brii Arias RN, [facility] 01/24/2021 I25.10 Atherosclerotic hear t disease of [place] coronary artery without angina pectoris Brii Arias RN, [facility] 01/24/2021 E11.9 Type 2 diabetes mellitus without complications Brii Arias RN, [facility] 01/24/2021 E78.2 Mixed hyperlipidemia Brii sellers RN, [facility] 01/24/2021 I65.23 Occlusion and stenosis of bilate ral carotid arteries Brii Arias RN, CHAIN MAKER LOOM CONTROL Plan of Treatment Future Appointment(s):* 02/18/2022 1:15 pm - [place] ORGAN TUNER ELECTRONIC/Device (415) at [place] [facility] 06/18/2021 - Brii Arias RN, CHAIN MAKER LOOM CONTROL* I25.10 Atherosclerotic heart disease of [place] coronary artery without angina pectoris * I10 [...] carotid disease. I have encouraged her to c lula to try to exercise as much as [...] evaluation sooner. Patient was seen in the [place] office and plan of care discussed with Dr. Juares. Functional Status Description No Information Available Mental Status Description No Information Available Referrals Description No Information Available
--- OUTSIDE RECORDS SUMMARY | 2021-08-26 08:29 | CCD ---
Author Author [facility] Organization [facility] Address Unknown Phone Unavailable Care Team Providers Care Director Loss Prevention Name Role Phone Jose Norton Unavailable PROBLEMS Type Condition ICD9-CM Code MGL01-FM Code Onset Dates Condition S tatus W/U Status Risk SNOMED Code Notes Problem Osteoporosis M81.0 Active confirmed 7172025 6 Problem Panic disorder F41.0 Active confirmed 70074 1005 Problem Diabetes mellitus, type 2 E11.9 Active confirmed 98165672 Problem Essential (primary) hypertension I10 Active conf irmed 38145421 Problem Seizure disorder G40.909 Active confirmed 12 9248203 Problem Hyperlipidemia E78.5 Active confirmed 48582 004 Problem Other secondary hypertension I15.8 Active confirme d 70115785 Problem Vitamin D deficiency, unspecified E55.9 Active con firmed 78981439 Problem Chronic stable angina I20.8 Active confirmed 048568433 Problem Arteriosclerotic coronary artery disease I25.10 Active confirmed 046243048518401 Problem Calculus of gallbladder K80.20 Active confirmed 81274754 Problem Bipolar disorder F31.9 Active confirmed 137 88706 ALLERGIES Allergen (clinical drug ingredient) Drug/Non Drug Allergy do cumented on EMR Reaction Allergy Type Onset Date Status hydroxyzine HydrOXYzine HCl([facility] Code:[address]-78) Unknown D rug Allergy 09/02/2019 Active PENICILIN Rash Non Drug Allergy Active ENCOUNTERS from 1950 to 2021-06-27 Encounter Location Date Provider Diagnosis [facility] [address] [facility] [phone] [place] [address] Jun, Jose Errol Hyperlipidemia E78.5 and Ess ential (primary) hypertension I10 IMMUNIZATIONS Vaccine Route Administration Date Status Influenza [...] School Language: Question Answer Notes Languages spoken: Uzbek Confucianist: Question Answer Notes Confucianist 03 Rastafarian Sexual Hx: Question Answer Notes Had sex [...] Notes Start Da te End Date Status Aspir-81 81 MG 1 tablet Orally Once a day Active LaMICtal 150 MG 1 tab Orally Twice a day Active Rosuvastatin Calcium 20 MG 1 tablet Orally Once a day for 90 days Active Isosorbide Mononitrate ER 120 MG TAKE 1 TABLET BY MOUT H ONCE A DAY IN THE MORNING for 90 Active Alendronate Sodium 70 MG 1 tablet Orally weekly Active Calcium Carb-Cholecalciferol 600-200 MG-UNIT TAKE 1 TA BLET BY MOUTH ONCE A DAY WITH A MEAL for 90 Active Amlodipine Besylate 5 MG TAKE ONE TABLET BY MOUTH TWI CE A DAY orally once daily for 90 days Active OneTouch Verio w/Device as directed E11.9 bid for 99 days Active Safety Seal Miscellaneous 1 as directed sharp container Daily fo r 30 Days Oct, Active Metoprolol Tartrate 50 MG 1 tablet with food Orally Twice a day for 90 days Active Blood Glucose Test - one touch subcutaneously tid for 90 days Active Alcohol Prep 70 % as directed topically Daily for 90 day(s) Jul, Active LORazepam 0.5 MG 1 tab Orally bid for 30 days May, Active Vitamin D3 1.25 MG (69224 UT) TAKE 1 CAPSULE BY MOUTH EVERY MONTH for 84 Active Nitrostat 0.4 MG 1 tablet under the tongue Alex blingual 1 tab onset of chest pain repeat in 5 mts no more than 3 doses Active Calcium + D3 600-200 MG-UNIT 1 tablet with a meal Oral ly Once a day for 90 day(s) Active amLODIPine Besylate 5 MG 1 tablet Orally once daily Active Calcium + D3 600-200 MG-UNIT 1 tablet with a meal Orally Onc e a day for 90 days Active Lisinopril 20 MG 1 tablet Orally Once a day for 90 days Active OneTouch Delica Plus [id number] - DIRECTED THREE TIMES A DAY for 90 Active metFORMIN HCl 500 MG 1 tablet with a meal Orally twice daily Active PROCEDURES No Information RESULTS No Results REASON FOR VISIT new scripts MEDICAL (GENERAL) HISTORY Type Description Date Medical History HTN- Renal US (04/2016 )- Les s than 50% stenosis, not flow limiting, incidental gall stones Medical History Hyperlipidemia Medical History CAD sp CABG, SACHIN-05/31/19 NST low risk, LEVF 80%-Dr [facility] //LVH, mild TR/AR by 12/2018 [facility] [...] Treatment Notes Treatm ent Clinical Notes Jun, Hyperlipidemia (ICD-10 - E78.5) Jun, Essential (primary) hypertension (ICD-10 - I10) PLAN OF TREATMENT Medication Medication Name Sig Start Date Stop Date Metoprolol Tartrate 50 MG 1 tablet with food Orally Twice a day for 90 days Lisinopril 20 MG 1 tablet Orally Once a day for 90 days OneTouch Delica Plus [id number] - DIRECTED THREE TIMES A DAY or 90 LORazepam 0.5 MG 1 tab Orally bid for 30 days May, Alendronate Sodium 70 MG 1 tablet Orally weekly Aspir-81 81 MG 1 tablet Orally Once a day amLODIPine Besylate 5 MG 1 tablet Orally once daily Isosorbide Mononitrate ER 120 MG TAKE 1 TABLET BY MOUT H ONCE A DAY IN THE MORNING for 90 LaMICtal 150 MG 1 tab Orally Twice a day metFORMIN HCl 500 MG 1 tablet with a meal Orally twice daily Rosuvastatin Calcium 20 MG 1 tablet Orally Once a day for 90 day s Calcium + D3 600-200 MG-UNIT 1 tablet with a meal Orally Onc e a day for 90 days Amlodipine Besylate 5 MG TAKE ONE TABLET BY MOUTH TWI CE A DAY orally once daily for 90 days Nitrostat 0.4 MG 1 tablet under the tongue Alex blingual 1 tab onset of chest pain repeat in 5 mts no more than 3 doses Next Appt Details Provider Name:Kristen Rice, 2020-10 07:30:00 AM, [address], , [place], [address], Insurance Providers Payer Name Payer Address Payer Phone Insured Name Patient Relati onship to Insured Coverage Start Date Coverage End Date MEDICAID [employer] [address] [facility] [id number] MAXIMILIAN RUIZ I self AETNA MEDICARE [email or web address] [address] [facility] [phone] MAXIMILIAN RUIZ I self
--- OUTSIDE RECORDS SUMMARY | 2021-08-26 08:29 | CCD | Continuity of Care Document ---
Author Author Suellen BRO I DPM Organization Unknown Address [address] [place] [address], [facility] [address] [place] [phone] Phone [phone] Care Team Providers Care Central Communications Specialist Name Role Phone Jose Norton M.D. [phone] Problems Active Problems Provider Date Hallux valgus [...] Black M.D.,[place]opher Metformin HCL 500mg Tablets Black M.D.,[place] Carbamazepine 100mg Chewtabs [facility] REYES,[place] Brilinta 90mg Tablets Take One Tablet By Mouth Twice A Day Unknown Ibandronate Sodium 150mg Tablets Take One Tablet By Mouth On The First Day Of Every Month With Water On Unknown Vitamin D (Ergocalciferol) 01355Zycn Capsules Take 1 Capsule By Mouth Once A Month Unkn own Sulfamethoxazole/Trimethoprim DS 800-160mg Tablets Black M.D.,[place] Levetiracetam 500mg Tablets Mohit REYES,[facility] Nitroglycerin 0.4mg Tablets Sub Black M.D.,[facility] Vimpat 50mg Tablets Mohit REYES,[place] Lamotrigine 25mg Tablets [facility] REYES,[facility] Metoprolol Tartrate 50mg Tablets Black M.D.,[place] Amlodipine Besylate 5mg Tablets Black M.D.,[place] Ranexa 500mg Tablets ER 12HR Black M.D.,[facility] Lamotrigine 100mg Tablets [facility] REYES,[place] Lorazepam 2mg Tablets Black M.D.,[place] Rosuvastatin Calcium 20mg Tablets Black M.D.,[place] Isosorbide Mononitrate ER 120mg Tablets ER 24HR Black M.D.,[place] Immunizations Description No Information Available Vital Signs Date Vital Result Comment 09/07/2017 11:18am Height 59 inches 4'11" Weight 139.00 lb BP Systolic 164 mmHg BP Diastolic 77 mmHg Heart Rate 58 /min BMI (Body Mass Index) 28.1 kg/m2 Results Description No Information Available Procedures Date Code Description Status 04/30/2021 96530 Debridement 6-10 Nails Electric Completed 01/25/2021 42272 Debridement 6-10 Nails Electric Completed Medical Devices [...] Treatment Future Appointment(s):* 07/09/2021 2:30 pm - Wli Bro DPM at [facility] Functional Status Description No Information Available Mental Status Description No Information Available Referrals Description No Information Available
--- OUTSIDE RECORDS SUMMARY | 2021-08-26 08:29 | CCD | Continuity of Care Document ---
Author Author Delvin Galarza ([id number])Suellen I Organization Unknown Address [address] [place] [address] Phone [phone] Care Team Providers Care Java Lead Architect Name Role Phone Jose Norton MD AUTM [phone] Problems Active Problems Provider Date Carotid artery [...] relief call 911 Unknown Vitamin D3 1.25mg (44363 Ut) Capsu les 1 po monthly Unknown [...] Studies <pending> Procedures Date Code Description Status 03/28/2021 24766 Echocardiography, Tranthoracic C omplete Image Documentation Completed 01/24/2021 43366 Office/Outpatient Established Mo d MDM 30-39 Min Completed Medical Devices Description No Information Available Encounters Type Date Location Provider Dx Diagnosis Office Visit 01/24/2021 8:00a [place] [facility] Brii Arias RN, GAS ENGINE OPERATOR COMPRESSORS I34.0 Nonrheumatic mitral (valve) insufficiency I10 Essential (primary) hyperten cornelia I25.10 Athscl heart disease of [place] coronary artery w/o ang pctrs E11.9 Type 2 diabetes mellitus wit hout complications E78.2 Mixed hyperlipidemia I65.23 Occlusion and stenosis of bi lateral carotid arteries Assessments Date Code Description Provider 03/28/2021 I34.0 Nonrheumatic mitral (valve) insu fficiency Suhail Albert MD 03/28/2021 I10 Essential (primary) hypertension Suhail Albert MD 03/28/2021 I25.10 Atherosclerotic hear t disease of [place] coronary artery without angina pectoris Suhail Albert MD 01/24/2021 I34.0 Nonrheumatic mitral (valve) insu fficiency Brii Arias RN, GAS ENGINE OPERATOR COMPRESSORS 01/24/2021 I10 Essential (primary) hypertension Brii Arias RN, GAS ENGINE OPERATOR COMPRESSORS 01/24/2021 I25.10 Atherosclerotic hear t disease of [place] coronary artery without angina pectoris Brii Arias RN, GAS ENGINE OPERATOR COMPRESSORS 01/24/2021 E11.9 Type 2 diabetes mellitus without complications Brii Arias RN, GAS ENGINE OPERATOR COMPRESSORS 01/24/2021 E78.2 Mixed hyperlipidemia Brii sellers RN, GAS ENGINE OPERATOR COMPRESSORS 01/24/2021 I65.23 Occlusion and stenosis of bilate ral carotid arteries Brii Arias RN, GAS ENGINE OPERATOR COMPRESSORS Plan of Treatment Future Appointment(s):* 06/18/2021 2:00 pm - [place] EDUCATIONAL ADVISOR/Device (415) at [place] [facility] 01/24/2021 - Brii Arias RN, GAS ENGINE OPERATOR COMPRESSORS* I34.0 Nonrheumatic mitral (valve) insufficiency * I10 Essential (primary) hypertension * I25.10 Atherosclerotic heart disease of [place] coronary artery without angina pectoris * E11.9 [...] She is to continue follow-up with Dr. Firero for her carotid disease. She will have [...] an evaluation. Patient was seen in our [place] clinic today. Functional Status Description No Information Available Mental Status Description No Information Available Referrals Description No Information Available
--- OUTSIDE RECORDS SUMMARY | 2021-08-26 08:29 | CCD | Continuity of Care Document ---
Author Author Suellen RUEDA P.A.-C. Organization Unknown Address [address] [place] [address] Phone [phone] Care Team Providers Care Steel Fitter Name Role Phone Eusebia Rice NEON TUBE BENDER AUTM Problems Description No Information Available Social History Type Date Description Comments Sex Unknown Allergies, Adverse Reactions, Alerts Active Allergies Criticality Reaction | Severity Comments Date Topamax Unable to assess criticality made her feel funny 02/02/2013 Penicillin Unable to assess criticality rash 08/14/2014 Pneumovax Unable to assess criticality localized sw elling 08/15/2016 Tegretol Unable to assess criticality low sodium 06/24/2017 Keppra Unable to assess criticality moodiness an d hallucinations 10/28/2017 Medications Active Medications SIG Qnty Indications Ordering Provide r Date Lamotrigine 150mg Tablets Take One Tablet By Mouth Twice A Day Maximum Daily Dose = 2 Tablets 180tabs G40.009 Amelia Allen M.D. 03/28/2021 Immunizations Description No Information Available Vital Signs Date Vital Result Comment 02/14/2021 9:07am BP Systolic 138 mmHg BP Diastolic 70 mmHg Heart Rate 76 /min Respiratory Rate 16 /min 07/16/2020 7:31am BP Systolic 140 mmHg BP Diastolic 80 mmHg Heart Rate 60 /min Respiratory Rate 16 /min Results Description No Information Available Procedures Date Code Description Status 02/14/2021 40230 Office/Outpatient Established Mo d MDM 30-39 Min Completed Medical Devices Description No Information Available Encounters Type Date Location Provider Dx Diagnosis Office Visit 02/14/2021 11:00a Main office - [place] Nkechi godinez P.A.-C. G40.009 Local-rel idio epi w seiz of loc onst,no t ntrct,w/o stat epi R55 Syncope and collapse Z86.73 Prsnl hx of TIA (TIA), and c ereb infrc w/o resid deficits I65.23 Occlusion and stenosis of bi lateral carotid arteries G43.809 Other migraine, not intracta ble, without status migrainosus G60.0 Hereditary motor and sensory neuropathy Assessments Date Code Description Provider 06/14/2021 Z86.73 Personal history of transient is chemic attack (TIA), and cer Nkechi Rueda P.A.-C. 06/14/2021 I65.23 Occlusion and stenosis of bilate ral carotid arteries Nkechi Rueda P.A.-C. 06/14/2021 G43.809 Other migraine, not intractable, without status migrainosus Nkechi Rueda P.A.-C. 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 06/14/2021 G60.0 Hereditary motor and sensory george ropathy Nkechi Rueda P.A.-C. 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 02/14/2021 R55 Syncope and collapse Ines Packer.A.-C. 02/14/2021 Z86.73 Personal history of transient is chemic attack (TIA), and cer Nkechi Rueda P.A.-C. 02/14/2021 I65.23 Occlusion and stenosis of bilate ral carotid arteries Nkechi Rueda P.A.-C. 02/14/2021 G43.809 Other migraine, not intractable, without status migrainosus Nkechi Rueda P.A.-C. 02/14/2021 G60.0 Hereditary motor and sensory george ropathy Nkechi Rueda P.A.-C. Plan of Treatment No Information Available Functional Status Description No Information Available Mental Status Description No Information Available Referrals Description No Information Available"
--- OUTSIDE RECORDS SUMMARY | 2021-08-26 08:29 | CCD | Continuity of Care Document ---
Author Author Suellen CENTENO MD Organization Unknown Address [address] [place] [address] Phone [phone] Care Team Providers Care Adobe Layer Name Role Phone Jose Norton MD AUTM [phone] Problems Active Problems Provider Date Carotid artery [...] x day Unknown Vitamin D (Ergocalciferol) 1.25mg (77249 Ut) Capsules 1 po monthly Unknown Immunizations [...] Facility Test Result H/L Range Note Order 07/11/2021 [employer] U/S Lower Extremity Bilateral <pending> Order 03/28/2021 [facility] Echocardiogram <pending> Xray 01/24/2021 [facility] Myocardial [facility]fusion [facility] Planar Multi Studies <pending> Procedures Date Code Description Status 07/11/2021 42435 Duplex Scan Lower Ex trem Artery Bypass Graft Complete Bilateral Completed 06/18/2021 69883 Office/Outpatient Established Hi gh MDM 40-54 Min Completed 06/04/2021 42292 Cardiovascular Stress Test Inter pretation & Report Only Completed 06/04/2021 29270 Cardiovascular Stress Test Physi kaelyn Supervision Only Completed 06/04/2021 29838 Myocardial Perfusion Imaging Tomographic (Spect) Multiple Studies Completed 03/28/2021 20520 Echocardiography, Tranthoracic C omplete Image Documentation Completed 01/24/2021 36089 Office/Outpatient Established Mo d MDM 30-39 Min Completed Medical Devices Description No Information Available Encounters Type Date Location Provider Dx Diagnosis Office Visit 06/18/2021 2:00p [place] [facility] Brii Arias, RN, EGG PROCESSING SUPERVISOR I25.10 Athscl heart disease of [place] coronary artery w/o ang pctrs I10 Essential (primary) hyperten cornelia E11.9 Type 2 diabetes mellitus wit hout complications E78.2 Mixed hyperlipidemia I65.23 Occlusion and stenosis of bi lateral carotid arteries I34.0 Nonrheumatic mitral (valve) insufficiency Office Visit 01/24/2021 8:00a [place] [facility] Brii Arias RN, EGG PROCESSING SUPERVISOR I34.0 Nonrheumatic mitral (valve) insufficiency I10 Essential (primary) hyperten cornelia I25.10 Athscl heart disease of [place] coronary artery w/o ang pctrs E11.9 Type 2 diabetes mellitus wit hout complications E78.2 Mixed hyperlipidemia I65.23 Occlusion and stenosis of bi lateral carotid arteries Assessments Date Code Description Provider 07/11/2021 E11.9 Type 2 diabetes mellitus without complications Tre Centeno MD 07/11/2021 I25.10 Atherosclerotic hear t disease of [place] coronary artery without angina pectoris Tre Centeno MD 07/11/2021 I10 Essential (primary) hypertension Tre Centeno MD 06/18/2021 I25.10 Atherosclerotic hear t disease of [place] coronary artery without angina pectoris Brii Arias RN, EGG PROCESSING SUPERVISOR 06/18/2021 I10 Essential (primary) hypertension Brii Arias RN, EGG PROCESSING SUPERVISOR 06/18/2021 E11.9 Type 2 diabetes mellitus without complications Brii Arias RN, EGG PROCESSING SUPERVISOR 06/18/2021 E78.2 Mixed hyperlipidemia Brii sellers RN, EGG PROCESSING SUPERVISOR 06/18/2021 I65.23 Occlusion and stenosis of bilate ral carotid arteries Brii Arias RN, [facility] 06/18/2021 I34.0 Nonrheumatic mitral (valve) insu fficiency Brii Arias RN, [facility] 06/04/2021 I25.10 Atherosclerotic hear t disease of [place] coronary artery without angina pectoris Gio Arboleda MD 06/04/2021 Z95.1 Presence of aortocoronary bypass graft Gio Arboleda MD 03/28/2021 I34.0 Nonrheumatic mitral (valve) insu fficiency Suhail Albert MD 03/28/2021 I10 Essential (primary) hypertension Suhail Albert MD 03/28/2021 I25.10 Atherosclerotic hear t disease of [place] coronary artery without angina pectoris Suhail Albert MD 01/24/2021 I34.0 Nonrheumatic mitral (valve) insu fficiency Brii Arias RN, [facility] 01/24/2021 I10 Essential (primary) hypertension Brii Arias RN, [facility] 01/24/2021 I25.10 Atherosclerotic hear t disease of [place] coronary artery without angina pectoris Brii Arias RN, [facility] 01/24/2021 E11.9 Type 2 diabetes mellitus without complications Brii Arias RN, [facility] 01/24/2021 E78.2 Mixed hyperlipidemia Brii sellers RN, [facility] 01/24/2021 I65.23 Occlusion and stenosis of bilate ral carotid arteries Brii Arias RN, EGG PROCESSING SUPERVISOR Plan of Treatment Future Appointment(s):* 02/18/2022 1:15 pm - [place] CREDIT UNION TELLER/Device (415) at [place] [facility] 06/18/2021 - Brii Arias RN, EGG PROCESSING SUPERVISOR* I25.10 Atherosclerotic heart disease of [place] coronary artery without angina pectoris * I10 [...] evaluation sooner. Patient was seen in the [place] office and plan of care discussed with Dr. Juares. Functional Status Description No Information Available Mental Status Description No Information Available Referrals Description No Information Available
--- OUTSIDE RECORDS SUMMARY | 2021-08-26 08:30 | CCD ---
Author Author [facility] Organization [facility] Address Unknown Phone Unavailable Care Team Providers Care Supervisor Ski [employer] Name Role Phone Jl RAMÍREZ MD Unavailable Unavailable Jl RAMÍREZ MD Unavailable Unavailable Jl RAMÍREZ MD Unavailable Unavailable Hamo, M Brii TRUST OFFICER Unavailable Unavailable Hamo, M Brii TRUST OFFICER Unavailable Unavailable Hamo, M Brii TRUST OFFICER Unavailable Unavailable Hamo, M Brii TRUST OFFICER Unavailable Unavailable Hamo, M Brii TRUST OFFICER Unavailable Unavailable Hamo, M Brii TRUST OFFICER Unavailable Unavailable Hamo, M Brii TRUST OFFICER Unavailable Unavailable Hamo, M Brii TRUST OFFICER Unavailable Unavailable Hamo, M Brii TRUST OFFICER Unavailable Unavailable Hamo, M Brii TRUST OFFICER Unavailable Unavailable Hamo, M Brii TRUST OFFICER Unavailable Unavailable Hamo, M Brii TRUST OFFICER Unavailable Unavailable Hamo, M Brii TRUST OFFICER Unavailable Unavailable Hamo, M Brii TRUST OFFICER Unavailable Unavailable Hamo, M Brii TRUST OFFICER Unavailable Unavailable Hamo, M Brii TRUST OFFICER Unavailable Unavailable Hamo, M Brii TRUST OFFICER Unavailable Unavailable Hamo, M Brii TRUST OFFICER Unavailable Unavailable Hamo, M Brii TRUST OFFICER Unavailable Unavailable Hotvedt, Magno Powers MD Unavailable Unavailable Hotvedt, Magno Powers MD Unavailable Unavailable Hotvedt, Magno Powers MD Unavailable Unavailable Hotvedt, Magno Powers MD Unavailable Unavailable Hotvedt, Magno Powers MD Unavailable Unavailable Hotvedt, Magno Powers MD Unavailable Unavailable Hotvedt, Magno Powers MD Unavailable Unavailable Hotvedt, Magno Powers MD Unavailable Unavailable Hotvedt, Magno Powers MD Unavailable Unavailable Hotvedt, Magno Powers MD Unavailable Unavailable Hotvedt, Magno Powers MD Unavailable Unavailable Hotvedt, Magno Powers MD Unavailable Unavailable Hotvedt, Magno Powers MD Unavailable Unavailable Hotvedt, Magno Powers MD Unavailable Unavailable Hotvedt, Magno Powers MD Unavailable Unavailable Hotvedt, Magno Powers MD Unavailable Unavailable Hotvedt, Magno Powers MD Unavailable Unavailable Hotvedt, Magno Powers MD Unavailable Unavailable Hotvedt, Magno Powers MD Unavailable Unavailable Hotvedt, Magno Powers MD Unavailable Unavailable Hotvedt, Magno Powers MD Unavailable Unavailable Hotvedt, Magno Powers MD Unavailable Unavailable Hotvedt, Magno Powers MD Unavailable Unavailable Hotvedt, Magno Powers MD Unavailable Unavailable Hotvedt, Magno Powers MD Unavailable Unavailable Hotvedt, Magno Powers MD Unavailable Unavailable Hotvedt, Magno Powers MD Unavailable Unavailable Hotvedt, Magno Powers MD Unavailable Unavailable Hotvedt, Magno Powers MD Unavailable Unavailable Hotvedt, Magno Powers MD Unavailable Unavailable Hotvedt, Magno Powers MD Unavailable Unavailable Hotvedt, Magno Powers MD Unavailable Unavailable Hotvedt, Magno Powers MD Unavailable Unavailable Hotvedt, Magno Powers MD Unavailable Unavailable Hotvedt, Magno Powers MD Unavailable Unavailable Hotvedt, Magno Powers MD Unavailable Unavailable Hotvedt, Magno Powers MD Unavailable Unavailable Hotvedt, Magno Powers MD Unavailable Unavailable Hotvedt, Magno Powers MD Unavailable Unavailable Hotvedt, Magno Powers MD Unavailable Unavailable Hotvedt, Magno Powers MD Unavailable Unavailable Hotvedt, Magno Powers MD Unavailable Unavailable Hotvedt, Magno Powers MD Unavailable Unavailable Hotvedt, Magno Powers MD Unavailable Unavailable Hotvedt, Magno Powers MD Unavailable Unavailable Hotvedt, Magno Powers MD Unavailable Unavailable Hotvedt, Magno Powers MD Unavailable Unavailable Hotvedt, Magno Powers MD Unavailable Unavailable Hotvedt, Magno Powers MD Unavailable Unavailable Hotvedt, Magno Powers MD Unavailable Unavailable Trickey, J Nkechi PA Unavailable Unavailable Trickey, J Nkechi PA Unavailable Unavailable Trickey, J Nkechi PA Unavailable Unavailable Trickey, J Nkechi PA Unavailable Unavailable Trickey, J Nkechi PA Unavailable Unavailable Trickey, J Nkechi PA Unavailable Unavailable Trickey, J Nkechi PA Unavailable Unavailable Trickey, J Nkechi PA Unavailable Unavailable Trickey, J Nkechi PA Unavailable Unavailable Trickey, J Nkechi PA Unavailable Unavailable Trickey, J Nkechi PA Unavailable Unavailable Trickey, J Nkechi PA Unavailable Unavailable Trickey, J Nkechi PA Unavailable Unavailable Trickey, J Nkecih PA Unavailable Unavailable Trickey, J Nkechi PA Unavailable Unavailable Trickey, J Nkechi PA Unavailable Unavailable Trickey, J Nkechi PA Unavailable Unavailable Trickey, J Nkechi PA Unavailable Unavailable Trickey, J Nkechi PA Unavailable Unavailable Trickey, J Nkechi PA Unavailable Unavailable Trickey, J Nkechi PA Unavailable Unavailable Trickey, J Nkechi PA Unavailable Unavailable Trickey, J Nkechi PA Unavailable Unavailable Trickey, J Nkechi PA Unavailable Unavailable Trickey, J Nkechi PA Unavailable Unavailable Trickey, J Nkechi PA Unavailable Unavailable Trickey, J Nkechi PA Unavailable Unavailable Trickey, J Nkechi PA Unavailable Unavailable Trickey, J Nkechi PA Unavailable Unavailable Trickey, J Nkechi PA Unavailable Unavailable Trickey, J Nkechi PA Unavailable Unavailable Trickey, J Nkechi PA Unavailable Unavailable Trickey, J Nkechi PA Unavailable Unavailable Trickey, J Nkechi PA Unavailable Unavailable Trickey, J Nkechi PA Unavailable Unavailable Trickey, J Nkechi PA Unavailable Unavailable Trickey, J Nkechi PA Unavailable Unavailable Trickey, J Nkechi PA Unavailable Unavailable Trickey, J Nkechi PA Unavailable Unavailable Trickey, J Nkechi PA Unavailable Unavailable Trickey, J Nkechi PA Unavailable Unavailable Trickey, J Nkechi PA Unavailable Unavailable Trickey, J Nkechi PA Unavailable Unavailable Trickey, J Nkechi PA Unavailable Unavailable Trickey, J Nkechi PA Unavailable Unavailable Trickey, J Nkechi PA Unavailable Unavailable Trickey, J Nkechi PA Unavailable Unavailable Trickey, J Nkechi PA Unavailable Unavailable Trickey, J Nkechi PA Unavailable Unavailable Helene Arias TRUST OFFICER Unavailable Unavailable Helene Arias TRUST OFFICER Unavailable Unavailable Helene Arias TRUST OFFICER Unavailable Unavailable Helene Arias TRUST OFFICER Unavailable Unavailable Helene Arias TRUST OFFICER Unavailable Unavailable Helene Arias TRUST OFFICER Unavailable Unavailable Helene Arias TRUST OFFICER Unavailable Unavailable Helene Arias TRUST OFFICER Unavailable Unavailable Hamo, M Brii TRUST OFFICER Unavailable Unavailable Hamo, M Brii TRUST OFFICER Unavailable Unavailable Hamo, M Brii TRUST OFFICER Unavailable Unavailable Hamo, M Brii TRUST OFFICER Unavailable Unavailable Hamo, M Brii TRUST OFFICER Unavailable Unavailable Hamo, M Brii TRUST OFFICER Unavailable Unavailable Hamo, M Brii TRUST OFFICER Unavailable Unavailable Hamo, M Brii TRUST OFFICER Unavailable Unavailable Hamo, M Brii TRUST OFFICER Unavailable Unavailable Hamo, M Rbii TRUST OFFICER Unavailable Unavailable Hamo, M Brii TRUST OFFICER Unavailable Unavailable Albert, A Suhail MD Unavailable Unavailable Albert, A Suhail MD Unavailable Unavailable Albert, A Suhail MD Unavailable Unavailable Albert, A Suhail MD Unavailable Unavailable Albert, A Suhail MD Unavailable Unavailable Albert, A Suhail MD Unavailable Unavailable Albert, A Suhail MD Unavailable Unavailable Albert, A Suhail MD Unavailable Unavailable Albert, A Suhail MD Unavailable Unavailable Albert, A Suhail MD Unavailable Unavailable Albert, A Suhail MD Unavailable Unavailable Albert, A Suhail MD Unavailable Unavailable Albert, A Suhail MD Unavailable Unavailable Re-disclosure Warning The records that you are about to access may contain information from federally-assisted alcohol or drug abuse programs. If such information is present, then the following federally mandated warning applies: This information has been disclosed to you from records protected by federal confidentiality rules (42 CFR part 2). The federal rules prohibit you from making any further disclosure of this information unless further disclosure is expressly permitted by the written consent of the person to whom it pertains or as otherwise permitted by 42 CFR part 2. A general authorization for the release of medical or other information is NOT sufficient for this purpose. The Federal rules restrict any use of the information to criminally investigate or prosecute any alcohol or drug abuse patient.The records that you are about to access may contain highly sensitive health information, the redisclosure of which is protected by Article 27-F of the [facility] Public Health law. If you continue you may have access to information: Regarding HIV / AIDS; Provided by facilities licensed or operated by the [facility] Office of Mental Health; or Provided by the [facility] Office for People With Developmental Disabilities. If such information is present, then the following [facility] mandated warning applies: This information has been disclosed to you from confidential records which are protected by state law. State law prohibits you from making any further disclosure of this information without the specific written consent of the person to whom it pertains, or as otherwise permitted by law. Any unauthorized further disclosure in violation of state law may result in a fine or penitentiary sentence or both. A general authorization for the release of medical or other information is NOT sufficient authorization for further disc losure. Allergies and Adverse Reactions Type Description Substance Reaction Status Data Source(s ) Propensity to adverse reactions NO ALLERGIES ON FILE NO ALLERGIES ON FILE [facility] Propensity to adverse reactions PENICILLINS PENICILLINS Rash Low [facility] Family History Family Member Name Family Member Gender Family Member Status Date o f Status Description Data Source(s) Unknown Male Problem [facility] ([facility] () Unknown Female Problem [facility] ([facility] Unknown Unknown Problem [facility] ([facility] Encounters Encounter Providers Location Date Indications Data Source(s ) OUTPATIENT 2E-MAPA 08/15/2021 09:40:[address] [facility] OUTPATIENT Attender: Suhail Albert MDAdmi tter: Suhail Albert MDReferrer: Suhail Albert MD 2E-2C 08/14/2021 12:20:46 PM EDT - 08/21/2021 04:10:[address] [facility] Patient admitted. [place] [address] [facility] [address] 08/12/2021 12:00:00 AM EDT eCW1 ([facility]) [place] [address] [facility] [address] 07/31/2021 12:00:00 AM EDT eCW1 ([facility]) Outpatient Attender: ZULEIMA RAMÍREZ MD [facility] 01:30:00 PM EDT [facility] ([facility]) [place] [address] [facility] [address] 07/02/2021 12:00:00 AM EDT eCW1 ([facility]) [place] [address] [facility] [address] 06/27/2021 12:00:00 AM EDT eCW1 ([facility]) Outpatient Attender: Brii Arias NP [facility] 06/18 02:00:00 PM EDT [facility] ([facility]) Outpatient Attender: Gio Arboleda MD 06/04/2021 08:26:00 AM EDT I25.10 [facility] I25.10 Outpatient Attender: Brii Arias NP 06/04/2021 07:48:00 AM EDT I25.10 [facility] I25.10 [place] [address] [facility] [place] [address] 06/01/2021 12:00:00 AM EDT eCW1 ([facility]) Unknown [address] [facility] [place] [address] 05/13/2021 12:00:00 AM EDT eCW1 ([facility]) Outpatient [address] [facility] [place] [address] 05/07/2021 12:00:00 AM EDT eCW1 ([facility]) [place] [address] [facility] [place] [address] 04/30/2021 12:00:00 AM EDT eCW1 ([facility]) [place] [address] [facility] [place] [address] 04/30/2021 12:00:00 AM EDT eCW1 ([facility]) [place] [address] [facility] [place] [address] 04/03/2021 12:00:00 AM EDT eCW1 ([facility]) [place] [address] [facility] [place] [address] 04/03/2021 12:00:00 AM EDT eCW1 ([facility]) Unknown [address] [facility] [place] [address] 04/02/2021 12:00:00 AM EDT eCW1 ([facility]) [place] [address] [facility] [place] [address] 03/06/2021 12:00:00 AM EDT eCW1 ([facility]) Outpatient Attender: Nkechi REYES Main office - [facility] 02/14/2021 11:00:00 AM EDT [facility] ([facility]) Unknown [address] [facility] [place] [address] 02/08/2021 12:00:00 AM EDT eCW1 ([facility]) [place] [address] [facility] [place] [address] 02/06/2021 12:00:00 AM EDT eCW1 ([facility]) [place] [address] [facility] [address] 01/28/2021 12:00:00 AM EDT eCW1 ([facility]) Outpatient Attender: Brii Arias NP [facility] 01/24 08:00:00 AM EDT [facility] ([facility]) [place] [address] [facility] [place] [address] 01/15/2021 12:00:00 AM EDT eCW1 ([facility]) [place] [address] [facility] [place] [address] 01/07/2021 12:00:00 AM EDT eCW1 ([facility]) [place]patient [address] [facility] [place] [address] 01/01/2021 12:00:00 AM EDT eCW1 ([facility]) [place] [address] [facility] [place] [address] 01/01/2021 12:00:00 AM EDT eCW1 ([facility]) [place] [address] [facility] [place] [address] 12/11/2020 12:00:00 AM EST eCW1 ([facility]) [place] [address] [facility] [place] [address] 12/07/2020 12:00:00 AM EST eCW1 ([facility]) [place] [address] [facility] [place] [address] 12/04/2020 12:00:00 AM EST eCW1 ([facility]) Office Visit Attender: Nkechi REYES Main office - [facility] 11/16/2020 07:00:00 AM EST MEDENT ([facility]) Unknown [address] [facility] [place] [address] 11/16/2020 12:00:00 AM EST eCW1 ([facility]) Unknown [address] [facility] [place] [address] 11/14/2020 12:00:00 AM EST eCW1 ([facility]) Unknown [address] [facility] [place] [address] 10/30/2020 12:00:00 AM EST eCW1 ([facility]) Unknown [address] [facility] [place] [address] 10/24/2020 12:00:00 AM EST eCW1 ([facility]) Unknown [address] [facility] [place] [address] 10/17/2020 12:00:00 AM EST eCW1 ([facility]) Unknown [address] [facility] [place] [address] 10/02/2020 12:00:00 AM EST eCW1 ([facility]) Unknown [address] [facility] [place] [address] 09/11/2020 12:00:00 AM EST eCW1 ([facility]) Unknown [address] [facility] [place] [address] 08/30/2020 12:00:00 AM EST eCW1 ([facility]) Unknown [address] [facility] [place] [address] 08/29/2020 12:00:00 AM EST eCW1 ([facility]) Outpatient [address] [facility] [place] [address] 08/14/2020 12:00:00 AM EST eCW1 ([facility]) Unknown [address] [facility] [place] [address] 08/13/2020 12:00:00 AM EST eCW1 ([facility]) [place] [address] [facility] [place] [address] 07/30/2020 12:00:00 AM EDT eCW1 ([facility]) Outpatient Attender: Nkechi REYES Main office - [facility] 07/16/2020 08:00:00 AM EDT [facility] ([facility]) [place] [address] [facility] [address] 07/03/2020 12:00:00 AM EDT eCW1 ([facility]) [place] [address] [facility] [place] [address] 07/03/2020 12:00:00 AM EDT eCW1 ([facility]) [place] [address] [facility] [place] [address] 07/03/2020 12:00:00 AM EDT eCW1 ([facility]) [place] [address] [facility] [place] [address] 07/03/2020 12:00:00 AM EDT eCW1 ([facility]) [place] [address] [facility] [place] [address] 07/03/2020 12:00:00 AM EDT eCW1 ([facility]) [facility] [place] [address] [facility] [place] [address] 07/02/2020 12:00:00 AM EDT eCW1 ([facility]) Immunizations Vaccine Date Status Description Data Source(s) IIV3. This is one of two codes replacing CVX 15, which is being retired. 08/10/2021 11:06:00 AM EDT completed eCW1 ([facility]) COVID-19 VACCINE Moderna 12/27/2020 12:00:00 AM EDT completed [employer] Vaccine Series Complete: YESThis Data wa s Submitted to [facility] Via [employer]. COVID-19 VACCINE, MRNA-1273, LNP-S (MODERNA)/PF 12/27/2020 1 2:00:00 AM EDT completed [facility] COVID-19 VACCINE Moderna 11/28/2020 12:00:00 AM EST completed [employer] Vaccine Series Complete: NOThis Data was Submitted to [facility] Via [employer]. COVID-19 VACCINE, MRNA-1273, LNP-S (MODERNA)/PF 11/28/2020 1 2:00:00 AM EST completed [facility] influenza, recombinant, quadrIvalent,injectable, prese rvative free 07/06/2020 02:01:00 PM EDT completed eCW1 ([facility]) influenza, recombinant, quadrIvalent,injectable, prese rvative free 07/06/2020 02:01:00 PM EDT completed eCW1 ([facility]) influenza, recombinant, quadrIvalent,injectable, prese rvative free 07/06/2020 02:01:00 PM EDT completed eCW1 ([facility]) influenza, recombinant, quadrIvalent,injectable, prese rvative free 07/06/2020 02:01:00 PM EDT completed eCW1 ([facility]) influenza, recombinant, quadrIvalent,injectable, prese rvative free 07/06/2020 02:01:00 PM EDT completed eCW1 ([facility]) influenza, recombinant, quadrIvalent,injectable, prese rvative free 07/06/2020 02:01:00 PM EDT completed eCW1 ([facility]) influenza, recombinant, quadrIvalent,injectable, prese rvative free 07/06/2020 02:01:00 PM EDT completed eCW1 ([facility]) influenza, recombinant, quadrIvalent,injectable, prese rvative free 07/06/2020 02:01:00 PM EDT completed eCW1 ([facility]) influenza, recombinant, quadrIvalent,injectable, prese rvative free 07/06/2020 02:01:00 PM EDT completed eCW1 ([facility]) influenza, recombinant, quadrIvalent,injectable, prese rvative free 07/06/2020 02:01:00 PM EDT completed eCW1 ([facility]) influenza, recombinant, quadrIvalent,injectable, prese rvative free 07/06/2020 02:01:00 PM EDT completed eCW1 ([facility]) influenza, recombinant, quadrIvalent,injectable, prese rvative free 07/06/2020 02:01:00 PM EDT completed eCW1 ([facility]) influenza, recombinant, quadrIvalent,injectable, prese rvative free 07/06/2020 02:01:00 PM EDT completed eCW1 ([facility]) influenza, recombinant, quadrIvalent,injectable, prese rvative free 07/06/2020 02:01:00 PM EDT completed eCW1 ([facility]) influenza, recombinant, quadrIvalent,injectable, prese rvative free 07/06/2020 02:01:00 PM EDT completed eCW1 ([facility]) influenza, recombinant, quadrIvalent,injectable, prese rvative free 07/06/2020 02:01:00 PM EDT completed eCW1 ([facility]) influenza, recombinant, quadrIvalent,injectable, prese rvative free 07/06/2020 02:01:00 PM EDT completed eCW1 ([facility]) influenza, recombinant, quadrIvalent,injectable, prese rvative free 07/06/2020 02:01:00 PM EDT completed eCW1 ([facility]) influenza, recombinant, quadrIvalent,injectable, prese rvative free 07/06/2020 02:01:00 PM EDT completed eCW1 ([facility]) influenza, recombinant, quadrIvalent,injectable, prese rvative free 07/06/2020 02:01:00 PM EDT completed eCW1 ([facility]) Medications Medication Brand Name Start Date Product Form Dose Route Admi nistrative Instructions Pharmacy Instructions Status Indications Reaction Description Data Source(s) 240 mcg/0.7 mL 08/01/2021 12:00:00 AM EDT syringe 0 INJECT DIRECTED INJECT DIRECTED SOLD: 08/01/2021 [facility] Lorazepam 0.5 MG Oral Tablet LORazepam 0.5 MG LORazepam 0.5 MG 07/29/2021 12:00:00 AM EDT active LORazepa m 0.5 MG eCW1 ([facility]) Lorazepam 0.5 MG Oral Tablet LORazepam 0.5 MG LORazepam 0.5 MG 07/29/2021 12:00:00 AM EDT active LORazepa m 0.5 MG eCW1 ([facility]) clopidogrel 75 MG Oral Tablet Clopidogrel Bisulfate 07/23/2021 1 2:00:00 AM EDT ORAL active MEDENT ( [facility]) Nitroglycerin 0.4 MG Sublingual Tablet Nitroglycerin 12:00:00 AM EDT active MEDENT ( [facility]) Lorazepam 0.5 MG Oral Tablet LORazepam 0.5 MG LORazepam 0.5 MG 07/02/2021 12:00:00 AM EDT active LORazepa m 0.5 MG eCW1 ([facility]) Lorazepam 0.5 MG Oral Tablet LORazepam 0.5 MG LORazepam 0.5 MG 06/03/2021 12:00:00 AM EDT active LORazepa m 0.5 MG eCW1 ([facility]) Lorazepam 0.5 MG Oral Tablet LORazepam 0.5 MG LORazepam 0.5 MG 06/03/2021 12:00:00 AM EDT active LORazepa m 0.5 MG eCW1 ([facility]) lamotrigine 150 MG Oral Tablet Lamotrigine 03/28/2021 12:00:00 AM EDT active MEDENT ([facility] ) Lorazepam 0.5 MG Oral Tablet LORazepam 0.5 MG LORazepam 0.5 MG 10/30/2020 12:00:00 AM EST active LORazepa m 0.5 MG eCW1 ([facility]) Lorazepam 0.5 MG Oral Tablet LORazepam 0.5 MG LORazepam 0.5 MG 10/30/2020 12:00:00 AM EST active LORazepa m 0.5 MG eCW1 ([facility]) Lorazepam 0.5 MG Oral Tablet LORazepam 0.5 MG LORazepam 0.5 MG 10/30/2020 12:00:00 AM EST active LORazepa m 0.5 MG eCW1 ([facility]) Lorazepam 0.5 MG Oral Tablet LORazepam 0.5 MG LORazepam 0.5 MG 10/30/2020 12:00:00 AM EST active LORazepa m 0.5 MG eCW1 ([facility]) Lorazepam 0.5 MG Oral Tablet LORazepam 0.5 MG LORazepam 0.5 MG 10/30/2020 12:00:00 AM EST active LORazepa m 0.5 MG eCW1 ([facility]) Lorazepam 0.5 MG Oral Tablet LORazepam 0.5 MG LORazepam 0.5 MG 10/30/2020 12:00:00 AM EST active LORazepa m 0.5 MG eCW1 ([facility]) Lorazepam 0.5 MG Oral Tablet LORazepam 0.5 MG LORazepam 0.5 MG 10/30/2020 12:00:00 AM EST active LORazepa m 0.5 MG eCW1 ([facility]) Lorazepam 0.5 MG Oral Tablet LORazepam 0.5 MG LORazepam 0.5 MG 10/30/2020 12:00:00 AM EST active LORazepa m 0.5 MG eCW1 ([facility]) Lorazepam 0.5 MG Oral Tablet LORazepam 0.5 MG LORazepam 0.5 MG 10/30/2020 12:00:00 AM EST active LORazepa m 0.5 MG eCW1 ([facility]) Lorazepam 0.5 MG Oral Tablet LORazepam 0.5 MG LORazepam 0.5 MG 10/30/2020 12:00:00 AM EST active LORazepa m 0.5 MG eCW1 ([facility]) Lorazepam 0.5 MG Oral Tablet LORazepam 0.5 MG LORazepam 0.5 MG 10/30/2020 12:00:00 AM EST active LORazepa m 0.5 MG eCW1 ([facility]) Lorazepam 0.5 MG Oral Tablet LORazepam 0.5 MG LORazepam 0.5 MG 10/30/2020 12:00:00 AM EST active LORazepa m 0.5 MG eCW1 ([facility]) Lorazepam 0.5 MG Oral Tablet LORazepam 0.5 MG LORazepam 0.5 MG 10/30/2020 12:00:00 AM EST active LORazepa m 0.5 MG eCW1 ([facility]) Lorazepam 0.5 MG Oral Tablet LORazepam 0.5 MG LORazepam 0.5 MG 10/30/2020 12:00:00 AM EST active LORazepa m 0.5 MG eCW1 ([facility]) Lorazepam 0.5 MG Oral Tablet LORazepam 0.5 MG LORazepam 0.5 MG 10/30/2020 12:00:00 AM EST active LORazepa m 0.5 MG eCW1 ([facility]) Lorazepam 0.5 MG Oral Tablet LORazepam 0.5 MG LORazepam 0.5 MG 10/30/2020 12:00:00 AM EST active LORazepa m 0.5 MG eCW1 ([facility]) Lorazepam 0.5 MG Oral Tablet LORazepam 0.5 MG LORazepam 0.5 MG 10/30/2020 12:00:00 AM EST active LORazepa m 0.5 MG eCW1 ([facility]) Lorazepam 0.5 MG Oral Tablet LORazepam 0.5 MG LORazepam 0.5 MG 10/30/2020 12:00:00 AM EST active LORazepa m 0.5 MG eCW1 ([facility]) Lorazepam 0.5 MG Oral Tablet LORazepam 0.5 MG LORazepam 0.5 MG 10/30/2020 12:00:00 AM EST active LORazepa m 0.5 MG eCW1 ([facility]) [employer]ocate Lancets 1 UNK 10/17/2020 12:00:00 AM EST active [employer]ocate Lancets 1 eCW1 ([facility]) Advocate Lancets 1 UNK 10/17/2020 12:00:00 AM EST active [employer]ocate Lancets 1 eCW1 ([facility]) [facility]ocate Lancets 1 UNK 10/17/2020 12:00:00 AM EST active [facility] Lancets 1 eCW1 ([facility]) [facility] Lancets 1 UNK 10/17/2020 12:00:00 AM EST active [facility] Lancets 1 eCW1 ([facility]) [facility] 1 UNK 10/17/2020 12:00:00 AM EST active [facility] Lancets 1 eCW1 ([facility]) [facility]ets 1 UNK 10/17/2020 12:00:00 AM EST active [facility] Lancets 1 eCW1 ([facility]) [facility]ets 1 UNK 10/17/2020 12:00:00 AM EST active [facility] Lancets 1 eCW1 ([facility]) [facility] 1 UNK 10/17/2020 12:00:00 AM EST active [facility] Lancets 1 eCW1 ([facility]) [facility] 1 UNK 10/17/2020 12:00:00 AM EST active [facility] Lancets 1 eCW1 ([facility]) [facility] Lancets 1 UNK 10/17/2020 12:00:00 AM EST active [facility] Lancets 1 eCW1 ([facility]) [facility] Lancets 1 UNK 10/17/2020 12:00:00 AM EST active [facility] Lancets 1 eCW1 ([facility]) [facility] Lancets 1 UNK 10/17/2020 12:00:00 AM EST active [facility] Lancets 1 eCW1 ([facility]) [facility] Lancets 1 UNK 10/17/2020 12:00:00 AM EST active eCW1 ([facility]) [facility] Lancets 1 UNK 10/17/2020 12:00:00 AM EST active [facility] Lancets 1 eCW1 ([facility]) [facility] Lancets 1 UNK 10/17/2020 12:00:00 AM EST active [facility] Lancets 1 eCW1 ([facility]) [facility] 1 UNK 10/17/2020 12:00:00 AM EST active [facility] Lancets 1 eCW1 ([facility]) [facility] Lancets 1 UNK 10/17/2020 12:00:00 AM EST active [facility] Lancets 1 eCW1 ([facility]) [facility] Lancets 1 UNK 10/17/2020 12:00:00 AM EST active [facility] Lancets 1 eCW1 ([facility]) [facility] Lancets 1 UNK 10/17/2020 12:00:00 AM EST active [facility] Lancets 1 eCW1 ([facility]) [facility] 1 UNK 10/17/2020 12:00:00 AM EST active [facility] Lancets 1 eCW1 ([facility]) [facility] 1 UNK 10/17/2020 12:00:00 AM EST active [facility] Lancets 1 eCW1 ([facility]) [facility] Lancets 1 UNK 10/17/2020 12:00:00 AM EST active [facility] Lancets 1 eCW1 ([facility]) [facility] Lancets 1 UNK 10/17/2020 12:00:00 AM EST active [facility] Lancets 1 eCW1 ([facility]) Clonazepam 0.5 MG Oral Tablet Clonazepam 0.5 MG 07/30/2020 12:00:00 A M EDT active Clonazepam 0.5 MG eC W1 ([facility]) Clonazepam 0.5 MG Oral Tablet Clonazepam 0.5 MG 07/30/2020 12:00:00 A M EDT active Clonazepam 0.5 MG eC W1 ([facility]) Clonazepam 0.5 MG Oral Tablet Clonazepam 0.5 MG 07/30/2020 12:00:00 A M EDT active Clonazepam 0.5 MG eC W1 ([facility]) Clonazepam 0.5 MG Oral Tablet Clonazepam 0.5 MG 07/30/2020 12:00:00 A M EDT active Clonazepam 0.5 MG eC W1 ([facility]) Clonazepam 0.5 MG Oral Tablet Clonazepam 0.5 MG 07/30/2020 12:00:00 A M EDT active Clonazepam 0.5 MG eC W1 ([facility]) Clonazepam 0.5 MG Oral Tablet Clonazepam 0.5 MG 07/30/2020 12:00:00 A M EDT active Clonazepam 0.5 MG eC W1 ([facility]) Clonazepam 0.5 MG Oral Tablet Clonazepam 0.5 MG 07/30/2020 12:00:00 A M EDT active Clonazepam 0.5 MG eC W1 ([facility]) buspirone hydrochloride 5 MG Oral Tablet BusPIRone HCl 5 MG BusPIRone HCl 5 MG 07/30/2020 12:00:00 AM EDT 1.0 {tablet} active BusPIRone HCl 5 MG eCW1 ([facility]) Clonazepam 0.5 MG Oral Tablet Clonazepam 0.5 MG 07/30/2020 12:00:00 A M EDT active Clonazepam 0.5 MG eC W1 ([facility]) Clonazepam 0.5 MG Oral Tablet Clonazepam 0.5 MG 07/30/2020 12:00:00 A M EDT active Clonazepam 0.5 MG eC W1 ([facility]) buspirone hydrochloride 5 MG Oral Tablet BusPIRone HCl 5 MG BusPIRone HCl 5 MG 07/30/2020 12:00:00 AM EDT 1.0 {tablet} active BusPIRone HCl 5 MG eCW1 ([facility]) Clonazepam 0.5 MG Oral Tablet Clonazepam 0.5 MG 07/30/2020 12:00:00 A M EDT active Clonazepam 0.5 MG eC W1 ([facility]) buspirone hydrochloride 5 MG Oral Tablet BusPIRone HCl 5 MG BusPIRone HCl 5 MG 07/30/2020 12:00:00 AM EDT 1.0 {tablet} active BusPIRone HCl 5 MG eCW1 ([facility]) Insurance Providers Payer name Policy type / Coverage type Policy ID Covered green party ID Covered green party's relationship to morton Policy Morton Plan Information MOTHER [employer] UNAVAILABLE Patient UNAVAILABLE MEDICAID [id number] Patient [id number] MEDICARE [id number] SP [id number] D [place] [id number] Self [id number] [place] 2 5 [id number] Self 2 1 TODAYS OPTIONS [id number] SP [id number] MEDICARE [id number] SP [id number] D TODAYS OPTIONS [id number] SP [id number] Today's Option Commercial [id number] 2.0.1.632672.3.227.99.23.66 063.0 Self [id number] Today's Option Commercial [id number] 2.0.1.897011.3.227.99.23.66 063.0 Self [id number] [place] OPTIONS [id number] [place] [id number] MEDICAID [id number] SP [id number] WELLCARE [id number] SP [id number] AETNA MEDICARE [id number] SP [id number] VQR AETNA MEDICARE [id number] SP [id number] VQR AETNA MEDICARE [id number] SP MEBS4 VQR AETNA MEDICARE ADVANTAGE [id number] Self [id number] [place]ID [place] [id number] Self [id number] MEDICAID [id number] SP [id number] AETNA MEDICARE [id number] SP [id number] VQR AETNA MEDICARE O [id number] S [id number] ANSI-Health Maintenance Organization ( O) [id number] ANSI-Medicare Part B [id number] ANSI-Medicare Part B [id number] ANSI-Medicare Part B [id number] ANSI-Medicare Part B [id number] ANSI-Medicare Part B [id number] ANSI-Health Maintenance Organization ( O) [id number]-[id number] ANSI-Medicare Part B [id number] [facility] [id number] ANSI-Health Maintenance Organization ( O) [id number]-375a-[id number] ANSI-Medicare Part B [id number]-[id number] ANSI-Medicare Part B [id number]-ls3k-[id number] ANSI-Medicare Part B [id number]-u51w-[id number] ANSI-Medicare Part B [id number]-72f1-8k7h-tko6ok8fjxj9 ANSI-Medicare Part B [id number] [facility] [id number]-[id number] ANSI-Medicare Part B [id number]-[id number] Medicaid Medigap Part B [id number].[id number] Self [id number] Today's Options Commercial [id number] MRN.[id number] Self [id number] Wellcare Commercial [id number] MRN.[id number]- [id number] Self [id number] Medicaid Medicaid [id number] MRN.[id number].[id number]-[id number] [id number] Self [id number] Wellcare Commercial [id number].[id number].[id number] [id number] Self [id number] ANSI-Medicare Part B [id number]-074o-[id number] ANSI-Medicare Part B [id number]-[id number]-t0w2-8uhg5c93f5bh ANSI-Medicare Part B [id number] [id number]-[id number]-[id number] ANSI-Health Maintenance Organization ( O) [id number]-j4ci-06k9-[id number] ANSI-Medicare Part B [id number]-4403-3447-b59j-g2b4gziel5pc ANSI-Medicare Part B [id number]-[id number] [id number]-83z5-vx8q0kk0s47g ANSI-Medicare Part B [id number]-176e-[id number] [facility] ( O) [id number] [id number] Medicaid Medicaid [id number] 2.16.840.1.249574.3.227.99.936.77174.0 S elf [id number] Wellcare Commercial [id number] 2.16.840.1.489993.3.227.99.936.57877.0 Self [id number] Medicaid Medicaid [id number] 2.16.840.1.842050.3.227.99.936.83732.0 S elf [id number] [facility] ( [facility]) [id number]-[id number] ANSI-Medicare Part B [id number]-[id number] ANSI-Medicare Part B [id number]-[id number] ANSI-Medicare Part B [id number] [id number]-[id number] [place] [id number] 2.16.840.1.561087.3.227.99.23.10411.0 Self [id number] Wellcare Commercial [id number] 2.16.840.1.608311.3.227.99.23.93351.0 S elf [id number] [place] [id number] 2.16.840.1.224888.3.227.99.23.38248.0 Self [id number] Medicare [place] Medicare Primary [id number] 2.16.840.1.931560.3.227.99.23.57853.0 Self [id number] MEDICAID [id number] SP [id number] ANSI-Medicare Part B [id number] ANSI-Medicare Part B [id number] ANSI-Medicare Part B [id number] TODAYS OPTIONS [id number] SP [id number] Medicaid Mediroundup Part B [id number] 2.16.0.1.211350.3.227.99.1037.120 42.0 Self [id number] Today's Options Commercial [id number] 2.16.840.1.333761.3.227.9 9.1037.11845.0 Self [id number] Wellcare Commercial [id number] 2.160.1.078223.3.227.99.1037.57782.0 Self [id number] ANSI-Medicare Part B [id number] ANSI-Medicare Part B [id number]-[id number] [id number]-25r0-4ir8-g8eo-706tf0dh8u24 ANSI-Medicare Part B [id number] y9p17l92-45q0-7d1p-9r19-419637kd30ez ANSI-Medicare Part B [id number] [id number]-[id number] ANSI-Medicare Part B [id number]-[id number] 6kb52qu3-f353-3216-ha90-6p7olb02rdfg ANSI-Medicare Part B [id number]-[id number] [id number]-[id number]-hsh9-227362ol84e5 ANSI-Medicare Part B [id number]-q344-ank12948193z ANSI-Medicare Part B [id number]-p5mn-[id number] v420a7s2-b2u2-007n-b6fa-[id number] ANSI-Medicare Part B [id number]-0t57-1d4c7uox3eq6 [id number]-8v62-1a1f3pev1ka5 ANSI-Medicare Part B [id number]-d375-t60h939k7933 7383wzm2-2i01-97q4-t533-d43s431l9674 ANSI-Medicare Part B [id number]-2055-915o-pw57t89qzg96 a432841c-8a6t-2024-695r-qx21u50ztq49 ANSI-Medicare Part B [id number]-3l9t-1163-9179e5l1q47s 0239vw31-7f0x-1t9t-4685-1655z1y5u49r ANSI-Medicare Part B [id number]-[id number]-8pgzs5w54i08 je35o8d3-q17j-7456-607p-2guas3v85m72 ANSI-Medicare Part B [id number]-422c-173r-[id number] 47p31565-251r-325e-889t-28w61651582j ANSI-Medicare Part B [id number]-e2axx1z5e0h0 0xp5n180-h7s3-58f5-68t0-g6jbs8h2d1x2 ANSI-Medicare Part B [id number]-u663-511v81804jg6 40xf4z9y-8ho8-0oa2-d658-008s20103ac3 ANSI-Medicare Part B [id number]-5bc3-6k1x-a97j4227n2r5 hs78al9l-t48g-8ie3-5x3j-i95x9683m7f6 ANSI-Medicare Part B [id number]-y020-7823373d1639 s153e977-a3u0-0cg3-n263-4606501v3642 ANSI-Medicare Part B [id number]-5qc0-u584-3x8q2378ly1h 74h301u9-v4ld-4ot9-c534-9s2d2330cq5b ANSI-Medicare Part B [id number]-27d3349m57c0 21tp0822-0ed0-7682-225o-50i6429n54a0 ANSI-Medicare Part B [id number]-3q7x-s20l-a2n95f57u892 [id number]-zuwy-4m5o-x15a-c4x32t39p242 TODAYS OPTIONS [id number] SP [id number] Medicaid Medicaid [id number] 11.27.830.1.320278.3.227.99.936.95484.0 S elf [id number] Today's Option Commercial [id number] 2.16.840.1.288302.3.227.99.936.2 8001.0 Self [id number] Medicaid Medigap Part B [id number] 2.16.840.1.717053.3.227.99.1037.120 42.0 Self [id number] Today's Options Commercial [id number] 2.16.840.1.817975.3.227.9 9.1037.85673.0 Self [id number] [place] [id number] 2.16.840.1.011510.3.227.99.23.42435.0 Self [id number] Medicare [place] Medicare Primary [id number] 2.16.840.1.337974.3.227.99.23.14482.0 Self 13 [id number] Medicaid Medicaid [id number] 2.16.840.1.081758.3.227.99.936.65477.0 S elf [id number] Today's Option Commercial [id number] 2.16840.1.740835.3.227.99.936.2 8001.0 Self [id number] Medicaid Medigap Part B [id number] 2.16.840.1.256604.3.227.99.1037.120 42.0 Self [id number] Today's Options Commercial [id number] 2.16.840.1.028657.3.227.9 9.1037.03189.0 Self [id number] Medicaid Medicaid [id number] 2.16.840.1.926018.3.227.99.936.74223.0 S elf [id number] Today's Option Commercial [id number] 2.16.840.1.147305.3.227.99.936.2 8001.0 Self [id number] Today's Option Commercial [id number] 2.16.840.1.222602.3.227.99.936.2 8001.0 Self [id number] Today's Options Commercial [id number] 2.16.840.1.888756.3.227.9 9.1037.83490.0 Self [id number] Medicare Part B Medicare Primary [id number] 2.16.840.1.449582.3.227.99.1037.64676.0 Self [id number] Medicaid Medigap Part B [id number] 2.16.840.1.326151.3.227.99.1037.120 42.0 Self [id number] Today's Options Commercial [id number] 2.16.840.1.000558.3.227.9 9.1037.56653.0 Self [id number] Today's Option Commercial [id number] 2.16840.1.716395.3.227.99.936.2 8001.0 Self [id number] MEDICARE [id number] SP [id number] D [place] Medigap Part B [id number] 2.160.1.891362.3.227.99.2809.00425.0 Self [id number] [employer] Commercial [id number] 2.0.1.008734.3.227.99.2809.85266.0 Self [id number] Today's Options Commercial [id number] 2.0.1.546520.3.227.9 9.1037.92635.0 Self [id number] Medicare Part B Medicare Primary [id number] 2.160.1.291890.3.227.99.1037.18046.0 Self [id number] Today's Options Commercial [id number] 2.0.1.581866.3.227.9 9.1037.92858.0 Self [id number] Medicare [facility] Part B [id number] 2.160.1.924437.3.227.99.2809.97153.0 Self [id number] [employer] Commercial [id number] 2.160.1.429145.3.227.99.2809.76891.0 Self [id number] Today's Options Commercial [id number] 2.16840.1.235163.3.227.9 9.1037.36109.0 Self [id number] Medicare Part B Medicare Primary [id number] 2.16.840.1.112447.3.227.99.1037.20387.0 Self [id number] Today's Options Commercial [id number] 2.16.840.1.719702.3.227.9 9.1037.01372.0 Self [id number] Today's Option Commercial [id number] 2.16.840.1.034800.3.227.99.23.66 063.0 Self [id number] Medicaid [place] Medicaid [id number] 2.16840.1.862988.3.227.99.23.22878.0 Self [id number] Medicare [place] Medicare Primary [id number] 2.16840.1.975843.3.227.99.23.90651.0 Self [id number] MEDICARE [id number] SP [id number] D Medicaid [place] Medigap Part B [id number] 2.0.1.205424.3.227.99 .2809.54538.0 Self [id number] Medicare [facility] Medicare Primary [id number] 2.840.1.725948.3.227.99.2809.00169.0 Self [id number] Medicaid [place] Medigap Part B [id number] 2.16840.1.646860.3.227.99 .2809.12125.0 Self [id number] [place] Medicare Primary [id number] 2.16840.1.695714.3.227.99.2809.64571.0 Self [id number] MEDICAID [id number] SP [id number] P Medicaid [place] Medigap Part B [id number] 2.16840.1.237997.3.227.99 .2809.84379.0 Self [id number] [place] Medigap Part B [id number] 2.16840.1.471001.3.227.99.2809.83874.0 Self [id number] [employer] Commercial [id number] 2.16840.1.470878.3.227.99.2809.80400.0 Self [id number] Medicare Part B Medicare Primary [id number] 2.16840.1.180103.3.227.99.1037.08087.0 Self [id number] Today's Options Commercial [id number] 2.16840.1.874073.3.227.9 9.1037.64862.0 Self [id number] Medicaid [place] Medigap Part B [id number] 2.0.1.784379.3.227.99 .2809.40954.0 Self [id number] [place] Medigap Part B [id number] 2.0.1.296874.3.227.99.2809.17202.0 Self [id number] [employer] Commercial [id number] 2.0.1.669089.3.227.99.2809.73712.0 Self [id number] Medicaid [place] Medigap Part B [id number] 2.0.1.666352.3.227.99 .2809.55317.0 Self [id number] [place] Medigap Part B [id number] 2.0.1.247758.3.227.99.2809.75519.0 Self [id number] [employer] Commercial [id number] 2.840.1.977260.3.227.99.2809.52148.0 Self [id number] Today's Options Commercial [id number] 2.0.1.258233.3.227.9 9.1037.24726.0 Self [id number] Medicaid Medigap Part B [id number] 2.840.1.186736.3.227.99.1037.120 42.0 Self [id number] Medicare Part B Medicare Primary [id number] 2.16840.1.206482.3.227.99.1037.44174.0 Self [id number] Medicaid [place] Medigap Part B 2.0.1.856389.3.227.99.2809.3 7490.0 Self [place] Medicare Primary [id number] Self Medicare [place] Medicare Primary [id number] Self MEDICARE [id number] Patient [id number] D Medicare Part B Medicare Primary 2.16.840.1.406294.3.227.9 9.1037.98463.0 Self Medicaid Medicaid 1 1 [id number] Self 1 1 MEDICAID UNAVAILABLE UNAVAILA BLE MEDICARE [id number] Patient [id number] W MEDICARE C [id number] S [id number] D Medicare Medicare Primary [id number] Self MEDICARE [id number] SP [id number] W [id number] W [id number] [place] [id number] SP [id number] W AETNA MEDICARE [id number] SP 10 [id number] AETNA MEDICARE [id number] SP 10 [id number] [place] [id number] SP [id number] AETNA MEDICARE [id number] SP [id number] VQR AETNA MEDICARE O [id number] S [id number] VQR MEDICAID M [id number] S [id number] [place] O [id number] S [id number] WELLCARE [id number] SP [id number] WELLCARE [id number] SP [id number] SELF PAY ONLY AETNA MEDICARE [id number] SP [id number] VQR AETNA MEDICARE [id number] SP [id number] VQR Medicare P [id number] S [id number] W Medicaid Dental S [id number] S [id number] AETNA MEDICARE [id number] SP [id number] VQR AETNA MEDICARE [id number] SP [id number] VQR Problems, Conditions, and Diagnoses Code Display Name Description Problem Type Effective Dates Data Source(s) I73.9 Peripheral vascular disease, unspecified Peripheral vascular disease, unspecified Diagnosis 08/14/2021 12:20:[address] [facility] I70.219 Atherosclerosis of [place] ar teries of extremities with intermittent claudication, unspecified extremity Atherosclerosis of [place] arteries of extremities with intermittent claudication, unspecified extremity Diagnosis 08/14/2021 12:20:46 PM [facility] Surgeries/Procedures Procedure Description Date Indications Data Source(s) Aortography Abdominal & Bilat Iliofemoral LWR Extremity Cath 08/21/2021 12:00:00 AM EST [facility] ([facility] Cardiology) OFFICE OUTPATIENT VISIT 15 MINUTES 07/23/2021 12:00:00 AM EDT [facility] ([facility] Cardiology) DEBRIDEMENT NAIL ANY METHOD 07/16/2021 12:00:00 AM EDT [facility] ([facility] Duplex Scan Lower Extrem Artery Bypass Graft Complete Bilate ral 07/11/2021 12:00:00 AM EDT [facility] ([facility] Cardiology) OFFICE OUTPATIENT VISIT 40 MINUTES 06/18/2021 12:00:00 AM EDT [facility] ([facility] Cardiology) Myocardial Perfusion Imaging Tomographic (Spect) Multiple St udies 06/04/2021 12:00:00 AM EDT [facility] ([facility] Cardiology) Cardiovascular Stress Test Physician Supervision Only 06/04/2021 12:00:00 AM EDT [facility] ([facility] Cardiology) Cardiovascular Stress Test Interpretation & Report Only 06/04/2021 12:00:00 AM EDT [facility] ([facility] Cardiology) DEBRIDEMENT NAIL ANY METHOD 04/30/2021 12:00:00 AM EDT [facility] ([facility] Echocardiography, Tranthoracic Complete Image Documentation 03/28/2021 12:00:00 AM EDT [facility] ([facility]iology) DUPLEX SCAN EXTRACRANIAL ART COMPL BI STUDY 03/26/2021 12:00:00 AM EDT [facility] ([facility]) OFFICE OUTPATIENT VISIT 25 MINUTES 02/14/2021 12:00:00 AM EDT [facility] ([facility]) DEBRIDEMENT NAIL ANY METHOD 01/25/2021 12:00:00 AM EDT [facility] ([facility] OFFICE OUTPATIENT VISIT 25 MINUTES 01/24/2021 12:00:00 AM EDT [facility] ([facility]iology) DEBRIDEMENT NAIL ANY METHOD 09/24/2020 12:00:00 AM EST [facility] ([facility] DEBRIDEMENT NAIL ANY METHOD 06/29/2020 12:00:00 AM EDT [facility] ([facility] Results ID Date Data Source [id number] 08/21/2021 10:42:[address] [facility] Name Value Range Interpretation Code Description Data Annel rce(s) Supporting Document(s) Cardiology/IR note [facility] MASGKz4uRxJYRoLd16/EWXnwIXCdn3CsPQlwWSw5STxsLEHxU9SwRLX3bO1pGDC2XFtIDnQzKcVuMEHq lbm [file] MDAwOTcwNSAwMDAwMCBuDQowMDAwMDEwNjYzIDAwMD DzET2RLaRjPXXjWWQ9TlSlYEVhPZKutt9JDTMmCHBgRVY9EDDyUUTyNODdUBwsWXBoKVTbJWrzAELeIB SkUY7WYrQeXSLbMLZ9AkBeVNNeBVQafj2ZGQRlIGQgNxWhYDKnQAItOXXiFQygOPXeJFThKFL9KFZcAV DmCH6MWoJkJKyzLUZGGfi3NQcpE3e8ADBvDG4ET5Rk u4EyGvEiONIGJMlrFF4iolAmOHFhRm6LJ8gHNqriObDcRLmcC4WtDsXzKvYvXJN9XQRrCjZbMUI6FZW4 Rv0nRYZyGFB4THE6RwPdMaG2NQJ2WpH3TsNcUeP6RuogCQvlOaCcGX9GJt6DKgL6LRQ6lVErMf3JAXB9 JKSFCoBpPN5ZJOe= ID Date Data Source [id number] 08/21/2021 04:20:[address] [facility] Name Value Range Interpretation Code Description Data Annel rce(s) Supporting Document(s) Progress Note [facility] WVGQRa5kVbEKRcId45/SDOerKACia6EzWXcmNBb9PYyvTPMvV0DzNED4bD3vBZY1INxBNtTlXsZaMLOm lbm [file] sealing machine catcher [file] IwNqSoJdEX2GWc8FQlR6NRW0kCWzLt4PZwC1NYIKBoXmEX3BEEh= ID Date Data Source [id number] 08/21/2021 01:10:[address] [facility] Name Value Range Interpretation Code Description Data Annel rce(s) Supporting Document(s) Progress Note [facility] MEDWPl4iBiGJAvCc94/KGUwiXHSno4LjERryESp6QYqlZCMsY8MiBBV9qK0xIZU3YVgUYgGnOmWfCMPf lbm [file] gyx64O915npJ488Qi9Bp8MxPGwSb5Ps8ctrd566xGG ZWZySSXFcDBHR5FcMqkkZCYT3HRuXjxIRKL5UxWE0sdHsNiau8OOLltvgDjoXGkkqIdb3A6fX/V99K3+ MLx4LXyqFjuCb+EQihILUQD0GUxcRx54VZaL4zQ+WQ04MdaWxdmueDlaBU9nVmMg0VITGHHkp5Pq2lDp MzlY7vEMT/UyiFhlGwJTG9dPPcKhqBIJccEa8jH6ZX dwawdFbkP8Ta5/Cnc0IZRW3LZD2xm3HiYwj6BY8qVGBy/NWPyRnX89sAPeEw62uM3XR9aD5hJ1ck41LM 1HW5TZCWdp9x1I4Xtrm4sq/xaxAprYPNmUbbRU42g7wEnOQfTkTAKJVXK/SO82cOoeO8OdL46tQGezD5 a1xbpVcyyjqWAm1EvYySwAjkwE12kiDP2paPlg+box sealing machine catcher [file] QMDhGlTI3WZMe= ID Date Data Source [id number] 08/21/2021 11:19:00 AM Health system Name Value Range Interpretation Code Description Data Annel rce(s) Supporting Document(s) ACT, iSTAT 126 Seconds 74-125 Above high normal [facility] The above 1 analytes were performed by [facility] [id number] [place] [address], ,[place] [address] ID Date Data Source [id number] 08/21/2021 10:31:00 AM Health system Name Value Range Interpretation Code Description Data Annel rce(s) Supporting Document(s) ACT, iSTAT 155 Seconds 74-125 Above high normal [facility] The above 1 analytes were performed by [facility] [id number] [place] [address], ,[place] [address] ID Date Data Source [id number] 08/21/2021 09:55:19 AM Health system Name Value Range Interpretation Code Description Data Annel rce(s) Supporting Document(s) H&P [facility] MRPBIx4xJaKZNiKs17/KPLrbCXVqt9DzGBsrXQy0VFlsYKKnG5TuFGI3kZ9gBKH8EUlLFkJaIrXmFPHz [facility] [file] Cj4+ZUnbcFAkuSpqVFPPPwN0DOY4AVqcHJQRDq7X ID Date Data Source [id number] 08/21/2021 07:01:[address] [facility] Name Value Range Interpretation Code Description Data Annel rce(s) Supporting Document(s) Glucose, Fingerstick 138 mg/dl 70-[address] [facility] The above 1 analytes were performed by [facility] [id number] [place] [address], ,[place] [address] ID Date Data Source [id number] 08/21/2021 08:12:[address] [facility] Name Value Range Interpretation Code Description Data Annel rce(s) Supporting Document(s) ABO-Rh Typing A Positive Health system Antibody Screen Negative [facility] Specimen Expires Date/Time [facility] PATIENT HISTORY Pt Hx Checked [facility] The above 4 analytes were performed by [facility] [id number] [place] [address], ,[place] [address] ID Date Data Source [id number] 08/21/2021 07:47:[address] [facility] Name Value Range Interpretation Code Description Data Annel rce(s) Supporting Document(s) Blood Urea Nitrogen 12 mg/dl 7-18 Normal (applies to non-nume candy results) [facility] Creatinine 0.76 mg/dl 0.51-0.95 Normal (applies to non-numeric resul ts) [facility] N-Acetylcysteine (NAC) and Metamizole hernandez ve the potential to falselydepress Creatinine results. Baseline values before medication adminstration are recommended. Patients undergoing treatment with phenindione will have falselydepressed results. Patients on phenindione therapy should be tested with an alternativeCREA method.Toxic levels of acetaminophen may lead to falsely depressed results forpatient samples. Glomerular Filtration Rate 75.00 mL/min/1.73m2 [facility] GFR Reference Ranges:Normal Function or Mild Renal Disease,if clinically at risk:>or= 60Moderately decreased:30 - 59Severely decreased:15 - 29Renal Failure:<15 Please note that the MDRD equation requires an additional adjustment forAfrican-Americans (multiply the GFR result by 1.210).Glomarular Filtration Rate (GFR) is estimated based on the MDRDequation, which assumes a steady state for creatinine ([place] Int Med 139/2 137-149, 2003), as recommended by the NationalKidney Disease Education Program in conjunction with the National Institutes of Health and the National KidneyFoundation. The Ulman method used in calculating this result is traceable to IDMS standards. Glucose 136 mg/dl 70-110 Above high normal [facility] Sulfasalazine has the potential to false ly depress Glucose results. Sulfapyridine has the potential to falsely elevate Glucose results. Baseline values before medication administration are recommended. Calcium 9.3 mg/dl 8.5-10.1 Normal (applies to non-numeric resul ts) [facility] Sodium 141 mEq/L 136-145 Normal (applies to non-numeric resul ts) [facility] Potassium 3.7 mEq/L 3.5-5.1 Normal (applies to non-numeric resul ts) [facility] Chloride 108.0 mEq/L 98.0-107.0 Above high normal [facility] Carbon Dioxide 27.3 mMol/L 21.0-32.0 Normal (applies to non-numeric results) [facility] Anion Gap 9.4 7.0-15.0 Normal (applies to non-numeric resul ts) [facility] The above 10 analytes were performed by [facility] [id number] [place] [address], ,[place] [address] ID Date Data Source [id number] 08/21/2021 07:40:[address] [facility] Name Value Range Interpretation Code Description Data Annel rce(s) Supporting Document(s) WBC 8.73 x1000/ul 4.80-10.00 Normal (applies to non-numeric re sults) [facility] RBC 4.48 x1Mil/ul 4.20-5.40 Normal (applies to non-numeric re sults) [facility] Hemoglobin 14.1 g/dl 12.0-16.0 Normal (applies to non-numeric resul ts) [facility] Hematocrit 42.1 % 37.0-47.0 Normal (applies to non-numeric resul ts) [facility] MCV 94.0 fL 81.0-99.0 Normal (applies to non-numeric resul ts) [facility] MCH 31.5 pg 27.0-31.0 Above high normal [facility] MCHC 33.5 g/dl 32.2-37.0 Normal (applies to non-numeric resul ts) [facility] RDW 11.8 % 11.5-14.5 Normal (applies to non-numeric resul ts) [facility] Platelet Count 224 x1000/ul 130-400 Normal (applies to non-numeric results) [facility] MPV 10.3 fL 9.4-12.4 Normal (applies to non-numeric resul ts) [facility] Nucleated RBCs 0.00 % 0.00-0.20 Normal (applies to non-numeric r esults) [facility] Abs. Nucleated RBCs 0.00 x1000/ul 0.00-0.02 Normal (appl ies to non-numeric results) [facility] The above 12 analytes were performed by [facility] [id number] [place] [address], ,[place] [address] ID Date Data Source [id number] 08/21/2021 07:38:[address] [facility] Name Value Range Interpretation Code Description Data Annel rce(s) Supporting Document(s) PT, No Coag Tx/Coag Tx Unk 11.7 Seconds 10.2-12.9 Janelle l (applies to non-numeric results) [facility] PT referenence range reflects values for patients not on anticoagulanttherapy.Discrepant results may occur due to anticoagulant effects such ascoumadin, direct thrombin inhibitors; argatroban (Acova), b ivalirudin(Angiomax) or dabigatran (Pradaxa) or direct factor Xa inhibitors;rivaroxaban (Xarelto), apixaban (Eliquis) and edoxaban (Savaysa). INR (No Coag Tx/Coag Tx Unk) 1.0 0.9-1.1 Nor mal (applies to non-numeric results) [facility] Suggested therapeutic INR ranges for ora l anticoagulant therapy: Indication:INRPrevention and treatment of DVT and PE2.0 - 3.0Prevention of systemic embolism with atrial fib., acute [place] and 2.0 -3.0 tissue prosthetic heart valves.Prevention of systemic embolism in patients with mechanical heart2.5 -3.5 valves.NOTE: The INR is only valid for patients on stable oral anticoagulanttherapy. The above 2 analytes were performed by [facility] [address],[id number],[place] [address] ID Date Data Source [id number] 08/15/2021 10:25:[address] [facility] Name Value Range Interpretation Code Description Data Annel rce(s) Supporting Document(s) Preprocedure Instructions [facility] QIQLAt3uEeMIMhCl30/RMIwgSGOkl6LxYOgfOPo9GVttZUPwO4SgXBG3mI9aDXA3EXjXBrUvBaMmQDG1 lbm [file] RMt6ZEikcK2M1KQC2iEisi6U+xesg+WLHyomqhF8LdPAxSqGaqEHcWhlB0KmpS2ZqDy+SV7IWi+nK+Weeder Thinner [file] Chief Airport Guide+PFl9whj47zUoHC/y+HYhcmfnbkFvJyhS0S2jb+7 [file] GDycKotjMBx8Fs9mMLQTRp2+VWqdkSSscRhsPMJNVvJzMLN0RXwkPGQDRi0M ID Date Data Source [id number] 07/11/2021 10:02:00 AM EDT [facility] ([facility]) Name Value Range Interpretation Code Description Data Annel rce(s) Supporting Document(s) U/S Lower Extremity Bilateral Laboratory test result [facility] ([facility]) ID Date Data Source [id number] 06/05/2021 10:17:00 AM EDT [facility] [address] [place] [address] [phone] NAME SEX PT STATUS ACCOUNT NUMBER MAXIMILIAN RUIZ REG REF [id number] ORDERING PHYSICIAN LOCATION MEDICAL RECORD NO. 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 Stress-rest perfusion images are analyzed. Patient has normal ejection fraction 67%, normal wall motion, normal perfusion. No evidence for ischemia or infarct. CONCLUSION Normal nuclear stress test. Reported By Gio Arboleda MD on 06/05/21 1017 Signed By Gio Arboleda MD on 06/07/21 1052 <<Signature on File>> Date Time CC: Gio Arboleda M.D.; Jose Norton M.D. Techn: EDMOND Trans Dt/Tm: 06/05/21 1048 Trans by: SHARITA Randolph Dt/Tm: : Total DLP = 0.00 mGy-cm : Total Radiation Dose = 0.0000 mSv Lifetime Dose: 0 mSv Name Value Range Interpretation Code Description Data Annel rce(s) Supporting Document(s) ID Date Data Source [id number] 06/04/2021 09:26:00 AM EDT [facility] ST RESS TEST CONSULTATION NAME: MAXIMILIAN RUIZ I : 1950 AGE: 71 MR#: [id number] ADMITTING DATE: ADMITTING DR: DISCHARGE DATE: ATTENDING DR: Brii Arias, RN, PRINCIPAL STATISTICAL SCIENTIST ROOM#: Baseline EKG demonstrates sinus rhythm, normal axis, diffuse scooped ST segment depression (0.5 mm), incomplete right bundle branch block. Patient was stressed using IV Lexiscan given over 20 seconds followed by 30 mCi IV Cardiolite. Patient had transient flushing and dyspnea. There were no further ST-T wave changes and no arrhythmias were seen. She had no chest pain. CONCLUSION Normal Lexiscan stress ECG, Cardiolite results are pending. <Electronically signed by Gio Arboleda MD> Gio Arboleda MD 06/07/21 1052 Gio Arboleda M.D. Cosigner: D: ELLA 06/04/21 0926 T: JUAN DIEGO 06/04/21 1032 CC: Gio Arboleda M.D.; Jose Norton M.D. LAST EDIT: Name Value Range Interpretation Code Description Data Annel rce(s) Supporting Document(s) ID Date Data Source [id number] 03/28/2021 11:01:00 AM EDT [facility] ([facility]) Name Value Range Interpretation Code Description Data Annel rce(s) Supporting Document(s) Echocardiogram Laboratory test result [facility] ([facility]) ID Date Data Source [id number] 01/24/2021 08:18:00 AM EDT [facility] ([facility]) Name Value Range Interpretation Code Description Data Annel rce(s) Supporting Document(s) Laboratory test finding (navigational concept) Laboratory test result [facility] ([facility]) ID Date Data Source [id number] 12/04/2020 08:15:00 AM EST [facility] ([facility] ) Name Value Range Interpretation Code Description Data Annel rce(s) Supporting Document(s) Lamotrigine [Mass/volume] in Serum or Plasma 8.6 ug/mL 2.0-20.0 [facility] ([facility], ) Testing on this sample was performed by homogeneous enzyme immunoassay. Detection Limit = 1.0 Performed at: [facility] [address] [place] [address] Lathe Setup Operator: Lata Grant [facility], Phone: [phone] ID Date Data Source [id number] 12/04/2020 08:15:00 AM EST [facility] ([facility] ) Name Value Range Interpretation Code Description Data Annel rce(s) Supporting Document(s) Vitamin B12 Level 884 pg/mL [facility] ([facility], ) VITAMIN B12 NORMAL RANGE NORMAL 247 - 911 PG/ML INDETERMINATE 211 - 246 PG/ML DEFICIENT LESS THAN 211 PG/ML Folate Laboratory test result [facility] ([facility] ) FOLATE NORMAL RANGE NORMAL GREATER THAN 5.4 NG/ML INDETERMINATE 3.4-5.4 NG/ML DEFICIENT LESS THAN 3.4 NG/ML ID Date Data Source [id number] 09/18/2020 12:00:00 AM EST [facility] Name Value Range Interpretation Code Description Data Annel rce(s) Supporting Document(s) 2019-nCoV RNA XXX NKECHI+probe-Imp Not Detected [facility] This lab was ordered by [facility] and reported by [facility]. ID Date Data Source [id number] 08/20/2020 06:47:00 AM EST [facility] ([facility] ) Name Value Range Interpretation Code Description Data Annel rce(s) Supporting Document(s) Lamotrigine [Mass/volume] in Serum or Plasma 9.3 ug/mL 2.0-20.0 [facility] ([facility], ) Testing on this sample was performed by homogeneous enzyme immunoassay. Detection Limit = 1.0 Performed at: [facility] [address] [id number] Lathe Setup Operator: Lata Grant [facility], Phone: [phone] ID Date Data Source [id number] 08/20/2020 06:47:00 AM EST [facility] ([facility], ) Name Value Range Interpretation Code Description Data Annel rce(s) Supporting Document(s) Vitamin B12 Level 293 pg/mL [facility] ([facility], ) VITAMIN B12 NORMAL RANGE NORMAL 247 - 911 PG/ML INDETERMINATE 211 - 246 PG/ML DEFICIENT LESS THAN 211 PG/ML Folate 17.1 ng/mL [facility] ([facility], ) FOLATE NORMAL RANGE NORMAL GREATER THAN 5.4 NG/ML INDETERMINATE 3.4-5.4 NG/ML DEFICIENT LESS THAN 3.4 NG/ML Procedure Social History Code Duration Value Status Description Data Source(s ) Smoking 07/29/2021 12:00:00 AM EDT Never Smoker completed Never S moker eCW1 ([facility]) Smoking 07/29/2021 12:00:00 AM EDT Never Smoker completed Never S moker eCW1 ([facility]) Smoking 07/19/2021 12:00:00 AM EDT - 10/12/2002 12:00:00 AM EST Patient is a former smoker completed Patient is a former smoker [facility]) Smoking 05/07/2021 12:00:00 AM EDT Never Smoker completed Never S moker eCW1 ([facility]) Smoking 05/07/2021 12:00:00 AM EDT Never Smoker completed Never S moker eCW1 ([facility]) Smoking 05/07/2021 12:00:00 AM EDT Never Smoker completed Never S moker eCW1 ([facility]) Smoking 05/07/2021 12:00:00 AM EDT Never Smoker completed Never S moker eCW1 ([facility]) Smoking 05/07/2021 12:00:00 AM EDT Never Smoker completed Never S moker eCW1 ([facility]) Smoking 01/01/2021 12:00:00 AM EDT Never Smoker completed Never S moker eCW1 ([facility]) Smoking 01/01/2021 12:00:00 AM EDT Never Smoker completed Never S moker eCW1 ([facility]) Smoking 01/01/2021 12:00:00 AM EDT Never Smoker completed Never S moker eCW1 ([facility]) Smoking 01/01/2021 12:00:00 AM EDT Never Smoker completed Never S moker eCW1 ([facility]) Smoking 01/01/2021 12:00:00 AM EDT Never Smoker completed Never S moker eCW1 ([facility]) Smoking 01/01/2021 12:00:00 AM EDT Never Smoker completed Never S moker eCW1 ([facility]) Smoking 01/01/2021 12:00:00 AM EDT Never Smoker completed Never S moker eCW1 ([facility]) Smoking 01/01/2021 12:00:00 AM EDT Never Smoker completed Never S moker eCW1 ([facility]) Smoking 01/01/2021 12:00:00 AM EDT Never Smoker completed Never S moker eCW1 ([facility]) Smoking 01/01/2021 12:00:00 AM EDT Never Smoker completed Never S moker eCW1 ([facility]) Smoking 01/01/2021 12:00:00 AM EDT Never Smoker completed Never S moker eCW1 ([facility]) Smoking 01/01/2021 12:00:00 AM EDT Never Smoker completed Never S moker eCW1 ([facility]) Smoking 01/01/2021 12:00:00 AM EDT Never Smoker completed Never S moker eCW1 ([facility]) Smoking 08/14/2020 12:00:00 AM EST Never Smoker completed Never S moker eCW1 ([facility]) Smoking 08/14/2020 12:00:00 AM EST Never Smoker completed Never S moker eCW1 ([facility]) Smoking 08/14/2020 12:00:00 AM EST Never Smoker completed Never S moker eCW1 ([facility]) Smoking 08/14/2020 12:00:00 AM EST Never Smoker completed Never S moker eCW1 ([facility]) Smoking 08/14/2020 12:00:00 AM EST Never Smoker completed Never S moker eCW1 ([facility]) Smoking 08/14/2020 12:00:00 AM EST Never Smoker completed Never S moker eCW1 ([facility]) Smoking 08/14/2020 12:00:00 AM EST Never Smoker completed Never S moker eCW1 ([facility]) Smoking 08/14/2020 12:00:00 AM EST Never Smoker completed Never S moker eCW1 ([facility]) Smoking 08/14/2020 12:00:00 AM EST Never Smoker completed Never S moker eCW1 ([facility]) Smoking 08/14/2020 12:00:00 AM EST Never Smoker completed Never S moker eCW1 ([facility]) Smoking 08/14/2020 12:00:00 AM EST Never Smoker completed Never S moker eCW1 ([facility]) Smoking 08/14/2020 12:00:00 AM EST Never Smoker completed Never S moker eCW1 ([facility]) Smoking 08/14/2020 12:00:00 AM EST Never Smoker completed Never S moker eCW1 ([facility]) Vital Signs ID Date Data Source [id number] Name Value Range Interpretation Code Description Data Source(s) Systolic blood pressure 144 mm[Hg] 144 mm[Hg] M [facility] ([facility]) Diastolic blood pressure 78 mm[Hg] 78 mm[Hg] [facility] ([facility]) Heart rate 76 /min 76 /min [facility]) Body height 59 [in_i] 59 [in_i] [facility]) 4'11" Body weight 131.00 [lb_av] 131.00 [lb_av] MED[facility] T ([facility]) Body mass index (BMI) [Ratio] 26.5 kg/m2 26.5 k g/m2 [facility] ([facility]) Body height 59 [in_i] 59 [in_i] [facility] 4'11" Body weight 128.00 [lb_av] 128.00 [lb_av] MED[facility] T ([facility]) Body mass index (BMI) [Ratio] 25.9 kg/m2 25.9 k g/m2 [facility] ([facility]) Systolic blood pressure 154 mm[Hg] 154 mm[Hg] M EDENT ([facility]) Diastolic blood pressure 80 mm[Hg] 80 mm[Hg] [facility] ([facility]) Heart rate 80 /min 80 /min [facility] Body weight 131.12 [lb_av] 131.12 [lb_av] eCW1 ([facility]) Body height 59.5 [in_i] 59.5 [in_i] eCW1 ([facility]) Body mass index (BMI) [Ratio] 26.04 kg/m2 26.04 kg/m2 eCW1 ([facility]) Heart rate 67 /min 67 /min eCW1 ([facility]) Respiratory rate 16 /min 16 /min eCW1 ([facility]) Body temperature 97.8 [degF] 97.8 [degF] eCW1 ( [facility]) Systolic blood pressure 140 mm[Hg] 140 mm[Hg] e CW1 ([facility]) Diastolic blood pressure 76 mm[Hg] 76 mm[Hg] eCW1 ([facility]) Systolic blood pressure 140 mm[Hg] 140 mm[Hg] M EDENT ([facility]) Diastolic blood pressure 70 mm[Hg] 70 mm[Hg] [facility] ([facility]) Systolic blood pressure 130 mm[Hg] 130 mm[Hg] M EDENT ([facility]) Diastolic blood pressure 70 mm[Hg] 70 mm[Hg] [facility] ([facility]) Body temperature 96.1 [degF] 96.1 [degF] [facility] ([facility]) Body height 59 [in_i] 59 [in_i] [facility] 4'11" Body weight 130.00 [lb_av] 130.00 [lb_av] MEDEN T ([facility]) Body weight 58.968 kg 58.968 kg [facility] Body mass index (BMI) [Ratio] 26.3 kg/m2 26.3 k g/m2 [facility] ([facility]) Systolic blood pressure 138 mm[Hg] 138 mm[Hg] M EDENT ([facility]) Diastolic blood pressure 70 mm[Hg] 70 mm[Hg] [facility] ([facility]) Heart rate 76 /min 76 /min [facility] ([facility]) Respiratory rate 16 /min 16 /min [facility] ( [facility] ) Systolic blood pressure 146 mm[Hg] 146 mm[Hg] M [facility]ENT ([facility]) Diastolic blood pressure 80 mm[Hg] 80 mm[Hg] [facility] ([facility]) Body mass index (BMI) [Ratio] 26.3 kg/m2 26.3 k g/m2 [facility] ([facility]) Heart rate 80 /min 80 /min [facility]) Body height 59 [in_i] 59 [in_i] [facility] ([facility]) 4'11" Body weight 130.00 [lb_av] 130.00 [lb_av] MEDEN T ([facility]) Body weight 131.4 [lb_av] 131.4 [lb_av] eCW1 ([facility]) Body height 59.5 [in_i] 59.5 [in_i] eCW1 ([facility]) Body mass index (BMI) [Ratio] 26.09 kg/m2 26.09 kg/m2 eCW1 ([facility]) Heart rate 66 /min 66 /min eCW1 ([facility]) Respiratory rate 18 /min 18 /min eCW1 ([facility]) Body temperature 98 [degF] 98 [degF] eCW1 ([facility]) Systolic blood pressure 128 mm[Hg] 128 mm[Hg] e CW1 ([facility]) Diastolic blood pressure 70 mm[Hg] 70 mm[Hg] eCW1 ([facility]) Diastolic blood pressure 80 mm[Hg] 80 mm[Hg] [facility] ([facility]) Systolic blood pressure 140 mm[Hg] 140 mm[Hg] M EDENT ([facility]) Heart rate 60 /min 60 /min [facility] ([facility]) Respiratory rate 16 /min 16 /min [facility] ( [facility]) Patient Treatment Plan of Care Planned Activity Planned Date Details Description Data Source (s) Lorazepam 0.5 MG Oral Tablet 07/29/2021 12:00:00 AM EDT eCW1 ([facility]) Lorazepam 0.5 MG Oral Tablet 07/29/2021 12:00:00 AM EDT eCW1 ([facility]) Lorazepam 0.5 MG Oral Tablet 07/02/2021 12:00:00 AM EDT eCW1 ([facility]) Lorazepam 0.5 MG Oral Tablet 06/03/2021 12:00:00 AM EDT eCW1 ([facility]) Lorazepam 0.5 MG Oral Tablet 06/03/2021 12:00:00 AM EDT eCW1 ([facility]) Lorazepam 0.5 MG Oral Tablet 10/30/2020 12:00:00 AM EST eCW1 ([facility]) Lorazepam 0.5 MG Oral Tablet 10/30/2020 12:00:00 AM EST eCW1 ([facility]) Lorazepam 0.5 MG Oral Tablet 10/30/2020 12:00:00 AM EST eCW1 ([facility]) Lorazepam 0.5 MG Oral Tablet 10/30/2020 12:00:00 AM EST eCW1 ([facility]) Lorazepam 0.5 MG Oral Tablet 10/30/2020 12:00:00 AM EST eCW1 ([facility]) Lorazepam 0.5 MG Oral Tablet 10/30/2020 12:00:00 AM EST eCW1 ([facility]) Lorazepam 0.5 MG Oral Tablet 10/30/2020 12:00:00 AM EST eCW1 ([facility]) Lorazepam 0.5 MG Oral Tablet 10/30/2020 12:00:00 AM EST eCW1 ([facility]) Lorazepam 0.5 MG Oral Tablet 10/30/2020 12:00:00 AM EST eCW1 ([facility]) Lorazepam 0.5 MG Oral Tablet 10/30/2020 12:00:00 AM EST eCW1 ([facility]) Lorazepam 0.5 MG Oral Tablet 10/30/2020 12:00:00 AM EST eCW1 ([facility]) Lorazepam 0.5 MG Oral Tablet 10/30/2020 12:00:00 AM EST eCW1 ([facility]) Lorazepam 0.5 MG Oral Tablet 10/30/2020 12:00:00 AM EST eCW1 ([facility]) Lorazepam 0.5 MG Oral Tablet 10/30/2020 12:00:00 AM EST eCW1 ([facility]) Lorazepam 0.5 MG Oral Tablet 10/30/2020 12:00:00 AM EST eCW1 ([facility]) Lorazepam 0.5 MG Oral Tablet 10/30/2020 12:00:00 AM EST eCW1 ([facility]) Lorazepam 0.5 MG Oral Tablet 10/30/2020 12:00:00 AM EST eCW1 ([facility]) Lorazepam 0.5 MG Oral Tablet 10/30/2020 12:00:00 AM EST eCW1 ([facility]) Lorazepam 0.5 MG Oral Tablet 10/30/2020 12:00:00 AM EST eCW1 ([facility]) Advocate Lancets 1 10/17/2020 12:00:00 AM EST eCW1 ([facility]) Advocate Lancets 1 10/17/2020 12:00:00 AM EST eCW1 ([facility]) Advocate Lancets 1 10/17/2020 12:00:00 AM EST eCW1 ([facility]) Advocate Lancets 1 10/17/2020 12:00:00 AM EST eCW1 ([facility]) Advocate Lancets 1 10/17/2020 12:00:00 AM EST eCW1 ([facility]) Advocate Lancets 1 10/17/2020 12:00:00 AM EST eCW1 ([facility]) Advocate Lancets 1 10/17/2020 12:00:00 AM EST eCW1 ([facility]) Advocate Lancets 1 10/17/2020 12:00:00 AM EST eCW1 ([facility]) Clonazepam 0.5 MG Oral Tablet 07/30/2020 12:00:00 AM EDT eCW1 ([facility]) Clonazepam 0.5 MG Oral Tablet 07/30/2020 12:00:00 AM EDT eCW1 ([facility]) Clonazepam 0.5 MG Oral Tablet 07/30/2020 12:00:00 AM EDT eCW1 ([facility]) Clonazepam 0.5 MG Oral Tablet 07/30/2020 12:00:00 AM EDT eCW1 ([facility]) Clonazepam 0.5 MG Oral Tablet 07/30/2020 12:00:00 AM EDT eCW1 ([facility]) Clonazepam 0.5 MG Oral Tablet 07/30/2020 12:00:00 AM EDT eCW1 ([facility]) Clonazepam 0.5 MG Oral Tablet 07/30/2020 12:00:00 AM EDT eCW1 ([facility]) buspirone hydrochloride 5 MG Oral Tablet 07/30/2020 12:00:00 AM EDT eCW1 ([facility]) Clonazepam 0.5 MG Oral Tablet 07/30/2020 12:00:00 AM EDT eCW1 ([facility]) buspirone hydrochloride 5 MG Oral Tablet 07/30/2020 12:00:00 AM EDT eCW1 ([facility]) Clonazepam 0.5 MG Oral Tablet 07/30/2020 12:00:00 AM EDT eCW1 ([facility]) buspirone hydrochloride 5 MG Oral Tablet 07/30/2020 12:00:00 AM EDT eCW1 ([facility]) Clonazepam 0.5 MG Oral Tablet 07/30/2020 12:00:00 AM EDT eCW1 ([facility])
[2021-08-26 08:37] LABS: INR 0.99; PROTHROMBIN TIME 13.5 SECONDS (12.7-14.5)
--- NOTE | 2021-08-26 08:38 | REP ---
INDICATION: CHEST PAIN COMPARISON: 12/02/2018 TECHNIQUE: Portable AP view of the chest FINDINGS: Mediastinum and cardiac silhouette stable. Sternotomy and CABG again noted. Lung charles are relatively clear and without acute consolidation, effusion, or pneumothorax. Skeletal structures demonstrate age-related osteopenia and degenerative changes. IMPRESSION: No acute cardiopulmonary process appreciated. <Electronically signed by Jean Marie Ye > 08/26/21 0837
[2021-08-26 08:56] LABS: ALBUMIN 3.9 GM/DL (3.2-5.2); ALT/SGPT 33 U/L (12-78); BILIRUBIN,DIRECT 0.2 MG/DL (0.0-0.2); BILIRUBIN,TOTAL 0.5 MG/DL (0.2-1.0); BLOOD UREA NITROGEN 10 MG/DL (7-18); CALCIUM LEVEL 9.9 MG/DL (8.8-10.2); CARBON DIOXIDE LEVEL 27 MEQ/L (21-32); CHLORIDE LEVEL 105 MEQ/L (98-107); CREATININE FOR GFR 0.94 MG/DL (0.55-1.30); FREE T4 1.03 NG/DL (0.76-1.46); GLOMERULAR FILTRATION RATE > 60.0 (>39); GLUCOSE, FASTING 204 MG/DL (70-100); LIPASE 63 U/L (73-393); MAGNESIUM LEVEL 1.9 MG/DL (1.8-2.4); NT-PRO BNP 35 PG/ML (<125); POTASSIUM SERUM 3.8 MEQ/L (3.5-5.1); SODIUM LEVEL 139 MEQ/L (136-145); TOTAL PROTEIN 7.2 GM/DL (6.4-8.2)
--- NOTE | 2021-08-26 10:13 | ECGEPIP ---
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
[2021-08-26] MEDS ORDERED: holter monitor (10:20)
[2021-08-26 11:21] VITALS: BP 138/61
== END 2021-08-26 11:36 | disposition home or self-care (01) ==
LOC: M ED 07:41 → EDBD 07:41 → M ED 11:36
DX: R00.2 Palpitations (principal); I10 Essential (primary) hypertension; E11.9 Type 2 diabetes mellitus without complications; E78.5 Hyperlipidemia, unspecified; F31.9 Bipolar disorder, unspecified; G40.909 Epilepsy, unspecified, not intractable, without status epilepticus; I73.9 Peripheral vascular disease, unspecified; Z79.899 Other long term (current) drug therapy; Z79.84 Long term (current) use of oral hypoglycemic drugs; Z79.82 Long term (current) use of aspirin; Z88.0 Allergy status to penicillin; Z88.7 Allergy status to serum and vaccine

== ENCOUNTER → 2021-08-26 | Outpatient (CLI) | payer MEDICARE, MEDICAID ==
[~2021-08-26] MED LIST changes: +CILO100T PO; +CLOP75TA2 PO; +holter monitor
--- NOTE | 2021-08-28 07:51 | HOLTMON ---
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 Her underlying rhythm was sinus with first-degree AV block with heart rate range 51 bpm at 1:35 AM and 97 bpm at 6:07 PM, averaging 68 bpm. No significant bradyarrhythmia or AV block. There was no atrial ectopic activity. There were only 4 single PVCs but no other ventricular arrhythmia. The patient made 7 diary entries noting "chest pain, dizziness, palpitations" but these symptoms did not correlate with any change in her underlying rhythm or rate. Rhythm findings well within normal limits. Electronically Signed on 08-28-2021 7:51:33 EST by Alvin Alves
== END ==
LOC: M EKG 12:30
PROVIDERS: ATTEND Emergency Medicine
DX: R00.2 Palpitations (principal)

== ENCOUNTER 2021-09-27 12:45 | Outpatient (RCR) | payer MEDICARE, MEDICAID ==
[~2021-09-27 12:45] MED LIST changes: +CILO100T PO; +CLOP75TA2 PO; +holter monitor
== END 2021-10-11 ==
LOC: M PT 12:45
PROVIDERS: ATTEND Nurse Practitioner Family
DX: I70.213 Atherosclerosis of native arteries of extremities with intermittent claudication, bilateral legs (principal)

== ENCOUNTER → 2021-10-01 | Outpatient (CLI) | payer MEDICARE, MEDICAID ==
[2021-10-01 08:15] LABS: BASO # 0.1 10^3/uL (0.0-0.2); BASO % 0.8 % (0.0-1.0); EOS # 0.3 10^3/uL (0.0-0.5); EOS % 3.7 % (0.0-3.0); HEMATOCRIT 44.2 % (36.0-47.0); HEMOGLOBIN 14.5 g/dl (12.0-15.5); LYMPH # 1.2 10^3/uL (1.5-5.0); LYMPH % 16.9 % (24.0-44.0); MEAN CORPUSCULAR HEMOGLOBIN 31.2 pg (27.0-33.0); MEAN CORPUSCULAR HGB CONC 32.8 g/dl (32.0-36.5); MEAN CORPUSCULAR VOLUME 95.1 fl (80.0-96.0); MONO # 0.9 10^3/uL (0.0-0.8); MONO % 11.9 % (2.0-8.0); NEUTROPHILS # 4.8 10^3/uL (1.5-8.5); NEUTROPHILS % 66.2 % (36.0-66.0); PLATELET COUNT, AUTOMATED 244 10^3/uL (150-450); RED BLOOD COUNT 4.65 10^6/uL (4.00-5.40); WHITE BLOOD COUNT 7.3 10^3/uL (4.0-10.0)
[2021-10-01 08:41] LABS: CREATININE, URINE 41.9 MG/DL; HEMOGLOBIN A1c 6.4 %; MALB URINE SIEMENS 93.6 MG/L; MAU/CREAT RATIO 223.3 MCG/MG (0.0-30.0)
[2021-10-01 08:46] LABS: ALBUMIN 3.6 GM/DL (3.2-5.2); ALT/SGPT 21 U/L (12-78); BILIRUBIN,TOTAL 0.3 MG/DL (0.2-1.0); BLOOD UREA NITROGEN 10 MG/DL (7-18); CALCIUM LEVEL 9.2 MG/DL (8.8-10.2); CARBON DIOXIDE LEVEL 26 MEQ/L (21-32); CHLORIDE LEVEL 107 MEQ/L (98-107); CHOLESTEROL LEVEL 122 MG/DL (<200); CHOLESTEROL RISK RATIO 2.652 (<5); CREATININE FOR GFR 0.78 MG/DL (0.55-1.30); GLOMERULAR FILTRATION RATE > 60.0 (>39); GLUCOSE, FASTING 131 MG/DL (70-100); HDL CHOLESTEROL 46 MG/DL (>40); LDL CHOLESTEROL 48 MG/DL (<100); NON-HDL-C 76 MG/DL; POTASSIUM SERUM 4.2 MEQ/L (3.5-5.1); SODIUM LEVEL 139 MEQ/L (136-145); TOTAL PROTEIN 7.2 GM/DL (6.4-8.2); TRIGLYCERIDES LEVEL 139 MG/DL (<150)
[2021-10-01 09:11] LABS: TOTAL 25(OH) VITAMIN D 48.2 NG/ML (30.0-100.0)
== END ==
LOC: M LAB 07:32
PROVIDERS: ATTEND Nurse Practitioner Family
DX: I10 Essential (primary) hypertension (principal); E55.9 Vitamin D deficiency, unspecified; E11.9 Type 2 diabetes mellitus without complications; E78.5 Hyperlipidemia, unspecified

== ENCOUNTER → 2021-10-01 | Outpatient (CLI) | payer MEDICARE, MEDICAID | LOC: M LAB 07:34 | PROVIDERS: ATTEND Physician Assistant Medical | DX: R56.9 Unspecified convulsions (principal) ==

== ENCOUNTER → 2022-02-10 | Outpatient (CLI) | payer MEDICARE, MEDICAID ==
[2022-02-10 07:39] LABS: BASO # 0.1 10^3/uL (0.0-0.2); BASO % 1.1 % (0.0-1.0); EOS # 0.2 10^3/uL (0.0-0.5); EOS % 3.1 % (0.0-3.0); HEMATOCRIT 45.1 % (36.0-47.0); LYMPH # 1.8 10^3/uL (1.5-5.0); LYMPH % 28.5 % (24.0-44.0); MEAN CORPUSCULAR HEMOGLOBIN 30.6 pg (27.0-33.0); MEAN CORPUSCULAR HGB CONC 33.3 g/dl (32.0-36.5); MONO # 0.8 10^3/uL (0.0-0.8); MONO % 12.3 % (2.0-8.0); NEUTROPHILS # 3.4 10^3/uL (1.5-8.5); NEUTROPHILS % 54.7 % (36.0-66.0); PLATELET COUNT, AUTOMATED 239 10^3/uL (150-450); WHITE BLOOD COUNT 6.2 10^3/uL (4.0-10.0)
[2022-02-10 07:44] LABS: HEMOGLOBIN A1c 6.6 %
[2022-02-10 07:55] LABS: ALBUMIN 3.9 GM/DL (3.2-5.2); ALT/SGPT 40 U/L (12-78); BILIRUBIN,TOTAL 0.4 MG/DL (0.2-1.0); BLOOD UREA NITROGEN 10 MG/DL (7-18); CALCIUM LEVEL 9.5 MG/DL (8.8-10.2); CARBON DIOXIDE LEVEL 26 MEQ/L (21-32); CHLORIDE LEVEL 108 MEQ/L (98-107); CHOLESTEROL LEVEL 119 MG/DL (<200); CHOLESTEROL RISK RATIO 2.245 (<5); CREATININE FOR GFR 0.81 MG/DL (0.55-1.30); GLOMERULAR FILTRATION RATE > 60.0 (>39); GLUCOSE, FASTING 137 MG/DL (70-100); HDL CHOLESTEROL 53 MG/DL (>40); LDL CHOLESTEROL 37 MG/DL (<100); NON-HDL-C 66 MG/DL; POTASSIUM SERUM 4.1 MEQ/L (3.5-5.1); SODIUM LEVEL 143 MEQ/L (136-145); TOTAL PROTEIN 7.1 GM/DL (6.4-8.2); TRIGLYCERIDES LEVEL 143 MG/DL (<150)
[2022-02-10 08:05] LABS: CREATININE, URINE 48.2 MG/DL; MAU/CREAT RATIO 394.1 MCG/MG (0.0-30.0)
[2022-02-10 11:19] LABS: TOTAL 25(OH) VITAMIN D 39.9 NG/ML (30.0-100.0)
== END ==
LOC: M PLALAB 06:35 → M LAB 06:35
PROVIDERS: ATTEND Nurse Practitioner Family
DX: I10 Essential (primary) hypertension (principal); E11.9 Type 2 diabetes mellitus without complications; E55.9 Vitamin D deficiency, unspecified; E78.5 Hyperlipidemia, unspecified; Z79.899 Other long term (current) drug therapy

== ENCOUNTER → 2022-03-06 | Outpatient (CLI) | payer MEDICARE, MEDICAID ==
[2022-03-06 06:57] LABS: BASO % 0.6 % (0.0-1.0); EOS # 0.2 10^3/uL (0.0-0.5); EOS % 2.7 % (0.0-3.0); HEMATOCRIT 44.7 % (36.0-47.0); LYMPH # 1.7 10^3/uL (1.5-5.0); LYMPH % 24.6 % (24.0-44.0); MEAN CORPUSCULAR HEMOGLOBIN 31.4 pg (27.0-33.0); MEAN CORPUSCULAR HGB CONC 33.6 g/dl (32.0-36.5); MEAN CORPUSCULAR VOLUME 93.5 fl (80.0-96.0); MONO # 0.9 10^3/uL (0.0-0.8); MONO % 13.1 % (2.0-8.0); NEUTROPHILS % 58.7 % (36.0-66.0); PLATELET COUNT, AUTOMATED 218 10^3/uL (150-450); RED BLOOD COUNT 4.78 10^6/uL (4.00-5.40); WHITE BLOOD COUNT 6.8 10^3/uL (4.0-10.0)
[2022-03-06 07:11] LABS: ALBUMIN 3.9 GM/DL (3.2-5.2); ALT/SGPT 24 U/L (12-78); BILIRUBIN,TOTAL 0.5 MG/DL (0.2-1.0); BLOOD UREA NITROGEN 15 MG/DL (7-18); CALCIUM LEVEL 10.1 MG/DL (8.8-10.2); CARBON DIOXIDE LEVEL 28 MEQ/L (21-32); CHLORIDE LEVEL 108 MEQ/L (98-107); CREATININE FOR GFR 0.88 MG/DL (0.55-1.30); GLOMERULAR FILTRATION RATE > 60.0 (>39); GLUCOSE, FASTING 148 MG/DL (70-100); POTASSIUM SERUM 4.3 MEQ/L (3.5-5.1); SODIUM LEVEL 142 MEQ/L (136-145); TOTAL PROTEIN 7.4 GM/DL (6.4-8.2)
== END ==
LOC: M LAB 06:10
PROVIDERS: ATTEND Psychiatry & Neurology Neurology
DX: R56.9 Unspecified convulsions (principal)

== ENCOUNTER → 2022-04-30 | Outpatient (CLI) | payer MEDICARE, MEDICAID ==
[2022-04-30 08:04] LABS: BASO % 0.7 % (0.0-1.0); EOS # 0.2 10^3/uL (0.0-0.5); EOS % 3.3 % (0.0-3.0); HEMATOCRIT 45.3 % (36.0-47.0); LYMPH # 1.5 10^3/uL (1.5-5.0); LYMPH % 25.2 % (24.0-44.0); MEAN CORPUSCULAR HEMOGLOBIN 31.3 pg (27.0-33.0); MEAN CORPUSCULAR HGB CONC 33.1 g/dl (32.0-36.5); MEAN CORPUSCULAR VOLUME 94.6 fl (80.0-96.0); MONO # 0.8 10^3/uL (0.0-0.8); MONO % 12.9 % (2.0-8.0); NEUTROPHILS # 3.5 10^3/uL (1.5-8.5); NEUTROPHILS % 57.6 % (36.0-66.0); PLATELET COUNT, AUTOMATED 223 10^3/uL (150-450); RED BLOOD COUNT 4.79 10^6/uL (4.00-5.40)
[2022-04-30 08:14] LABS: INR 0.94
[2022-04-30 08:15] LABS: PARTIAL THROMBOPLASTIN TIME 29.3 SECONDS (25.9-37.0)
[2022-04-30 08:26] LABS: BLOOD UREA NITROGEN 15 MG/DL (7-18); CALCIUM LEVEL 10.4 MG/DL (8.8-10.2); CARBON DIOXIDE LEVEL 29 MEQ/L (21-32); CHLORIDE LEVEL 109 MEQ/L (98-107); GLOMERULAR FILTRATION RATE > 60.0 (>39); GLUCOSE, FASTING 148 MG/DL (70-100); POTASSIUM SERUM 4.6 MEQ/L (3.5-5.1); SODIUM LEVEL 141 MEQ/L (136-145)
== END ==
LOC: M LAB 07:20
PROVIDERS: ATTEND Surgery Vascular Surgery
DX: I73.9 Peripheral vascular disease, unspecified (principal); Z01.818 Encounter for other preprocedural examination; D69.8 Other specified hemorrhagic conditions

== ENCOUNTER → 2022-06-06 | Outpatient (CLI) | payer MEDICARE, MEDICAID ==
[2022-06-06 17:01] LABS: BLOOD UREA NITROGEN 17 MG/DL (7-18); CREATININE FOR GFR 0.92 MG/DL (0.55-1.30); GLOMERULAR FILTRATION RATE > 60.0 (>39)
== END ==
LOC: M LAB 15:48
PROVIDERS: ATTEND Surgery Vascular Surgery
DX: I73.9 Peripheral vascular disease, unspecified (principal)

== ENCOUNTER → 2022-06-13 | Outpatient (CLI) | payer MEDICARE, MEDICAID ==
[~2022-06-13] MED LIST changes: +ISOVUE-370 76% 100ML VIAL As Ordered ONE
== END ==
LOC: M RAD 09:03
PROVIDERS: ATTEND Surgery Vascular Surgery
DX: I73.9 Peripheral vascular disease, unspecified (principal)
CPT/HCPCS: 75635; Q9967

== ENCOUNTER → 2022-07-11 | Outpatient (CLI) | payer MEDICARE, MEDICAID ==
[~2022-07-11] MED LIST changes: -ISOVUE-370 76% 100ML VIAL As Ordered ONE
[2022-07-11 08:17] LABS: BASO # 0.1 10^3/uL (0.0-0.2); BASO % 0.7 % (0.0-1.0); EOS # 0.2 10^3/uL (0.0-0.5); EOS % 2.6 % (0.0-3.0); HEMATOCRIT 44.8 % (36.0-47.0); HEMOGLOBIN 15.2 g/dl (12.0-15.5); LYMPH # 1.8 10^3/uL (1.5-5.0); LYMPH % 25.7 % (24.0-44.0); MEAN CORPUSCULAR HEMOGLOBIN 31.4 pg (27.0-33.0); MEAN CORPUSCULAR HGB CONC 33.9 g/dl (32.0-36.5); MEAN CORPUSCULAR VOLUME 92.6 fl (80.0-96.0); MONO # 0.8 10^3/uL (0.0-0.8); MONO % 12.2 % (2.0-8.0); NEUTROPHILS % 58.5 % (36.0-66.0); PLATELET COUNT, AUTOMATED 242 10^3/uL (150-450); RED BLOOD COUNT 4.84 10^6/uL (4.00-5.40); WHITE BLOOD COUNT 6.8 10^3/uL (4.0-10.0)
[2022-07-11 08:36] LABS: HEMOGLOBIN A1c 6.6 %
[2022-07-11 08:56] LABS: ALT/SGPT 30 U/L (12-78); BILIRUBIN,TOTAL 0.4 MG/DL (0.2-1.0); BLOOD UREA NITROGEN 13 MG/DL (7-18); CALCIUM LEVEL 9.6 MG/DL (8.8-10.2); CARBON DIOXIDE LEVEL 29 MEQ/L (21-32); CHLORIDE LEVEL 99 MEQ/L (98-107); CHOLESTEROL LEVEL 113 MG/DL (<200); CHOLESTEROL RISK RATIO 2.173 (<5); CREATININE FOR GFR 0.88 MG/DL (0.55-1.30); GLOMERULAR FILTRATION RATE > 60.0 (>39); GLUCOSE, FASTING 124 MG/DL (70-100); HDL CHOLESTEROL 52 MG/DL (>40); LDL CHOLESTEROL 34 MG/DL (<100); NON-HDL-C 61 MG/DL; POTASSIUM SERUM 3.9 MEQ/L (3.5-5.1); SODIUM LEVEL 133 MEQ/L (136-145); TOTAL PROTEIN 7.3 GM/DL (6.4-8.2); TRIGLYCERIDES LEVEL 136 MG/DL (<150)
== END ==
LOC: M LAB 07:00
PROVIDERS: ATTEND Internal Medicine Interventional Cardiology
DX: I34.0 Nonrheumatic mitral (valve) insufficiency (principal); E78.2 Mixed hyperlipidemia; Z79.899 Other long term (current) drug therapy

== ENCOUNTER → 2022-07-21 | Outpatient (CLI) | payer MEDICARE, MEDICAID ==
[~2022-07-21] MED LIST changes: -CILO100T PO; +CILO100T3 PO
[2022-07-21 12:52] LABS: BASO # 0.1 10^3/uL (0.0-0.2); BASO % 0.8 % (0.0-1.0); EOS # 0.2 10^3/uL (0.0-0.5); EOS % 2.3 % (0.0-3.0); HEMATOCRIT 43.3 % (36.0-47.0); HEMOGLOBIN 14.8 g/dl (12.0-15.5); LYMPH # 1.8 10^3/uL (1.5-5.0); LYMPH % 20.2 % (24.0-44.0); MEAN CORPUSCULAR HGB CONC 34.2 g/dl (32.0-36.5); MEAN CORPUSCULAR VOLUME 93.7 fl (80.0-96.0); NEUTROPHILS # 5.9 10^3/uL (1.5-8.5); NEUTROPHILS % 65.3 % (36.0-66.0); PLATELET COUNT, AUTOMATED 242 10^3/uL (150-450); RED BLOOD COUNT 4.62 10^6/uL (4.00-5.40); WHITE BLOOD COUNT 9.1 10^3/uL (4.0-10.0)
[2022-07-21 13:24] LABS: INR 0.98; PROTHROMBIN TIME 13.2 SECONDS (12.5-14.5)
[2022-07-21 13:25] LABS: PARTIAL THROMBOPLASTIN TIME 28.2 SECONDS (24.8-34.2)
[2022-07-21 13:38] LABS: BLOOD UREA NITROGEN 14 MG/DL (7-18); CALCIUM LEVEL 9.5 MG/DL (8.8-10.2); CARBON DIOXIDE LEVEL 28 MEQ/L (21-32); CHLORIDE LEVEL 103 MEQ/L (98-107); GLOMERULAR FILTRATION RATE > 60.0 (>39); GLUCOSE, FASTING 132 MG/DL (70-100); POTASSIUM SERUM 4.3 MEQ/L (3.5-5.1); SODIUM LEVEL 135 MEQ/L (136-145)
== END ==
LOC: M LAB 11:20
PROVIDERS: ATTEND Surgery Vascular Surgery
DX: I73.9 Peripheral vascular disease, unspecified (principal); D59.8 Other acquired hemolytic anemias; Z01.818 Encounter for other preprocedural examination

== ENCOUNTER 2022-09-26 05:53 | Emergency (ER) | payer MEDICARE, MEDICAID ==
[~2022-09-26] VITALS: Ht 149.9 cm; Wt 58.2 kg
[2022-09-26] MEDS ORDERED: METOPROLOL TART 50 MG TAB PO ONE (07:15)
[2022-09-26] MEDS ORDERED: amLODIPine 5 MG TAB PO ONE (07:15)
[2022-09-26] MEDS ORDERED: ISOSORBIDE MON. (IMDUR) 60MG XR TAB PO ONE (07:15)
[2022-09-26] MEDS ORDERED: hydroCHLOROthiazide 12.5 MG CAPSULE PO ONE (07:20)
[2022-09-26] MEDS ORDERED: LOSARTAN 50MG TABLET PO ONE (07:20)
[2022-09-26] MEDS ORDERED: TRAM50TA2 PO (07:43)
[2022-09-26 07:51] VITALS: BP 189/84
== END 2022-09-26 08:25 | disposition home or self-care (01) ==
LOC: M ED 05:53 → EDBD 05:53 → M ED 08:25
DX: M17.12 Unilateral primary osteoarthritis, left knee (principal); I10 Essential (primary) hypertension; I25.10 Atherosclerotic heart disease of native coronary artery without angina pectoris; E11.9 Type 2 diabetes mellitus without complications; E78.5 Hyperlipidemia, unspecified; K21.9 Gastro-esophageal reflux disease without esophagitis; F32.9 Major depressive disorder, single episode, unspecified; Z79.82 Long term (current) use of aspirin; Z79.84 Long term (current) use of oral hypoglycemic drugs; Z79.899 Other long term (current) drug therapy; Z88.0 Allergy status to penicillin; Z88.7 Allergy status to serum and vaccine

== ENCOUNTER 2022-10-04 19:27 | Emergency (ER) | payer MEDICARE, MEDICAID ==
[~2022-10-04] VITALS: Ht 149.9 cm; Wt 58.0 kg
[~2022-10-04 19:27] MED LIST changes: +TRAM50TA2 PO
[2022-10-04] MEDS ORDERED: ACETAMINOPHEN 500 MG TAB PO ONE (19:55)
[2022-10-04 20:45] VITALS: BP 135/69
== END 2022-10-04 21:26 | disposition home or self-care (01) ==
LOC: EDBD 19:27 → M ED 19:27
DX: M54.50 Low back pain, unspecified (principal); I25.10 Atherosclerotic heart disease of native coronary artery without angina pectoris; E11.9 Type 2 diabetes mellitus without complications; I10 Essential (primary) hypertension; Z86.73 Personal history of transient ischemic attack (TIA), and cerebral infarction without residual deficits; K21.9 Gastro-esophageal reflux disease without esophagitis; F41.9 Anxiety disorder, unspecified; F31.9 Bipolar disorder, unspecified; R56.9 Unspecified convulsions; Z79.82 Long term (current) use of aspirin; Z79.84 Long term (current) use of oral hypoglycemic drugs; Z79.899 Other long term (current) drug therapy; Z88.0 Allergy status to penicillin; Z88.7 Allergy status to serum and vaccine

== ENCOUNTER → 2022-11-12 | Outpatient (CLI) | payer MEDICARE, MEDICAID | LOC: M WHC 13:30 | PROVIDERS: ATTEND Nurse Practitioner Family | DX: Z12.31 Encounter for screening mammogram for malignant neoplasm of breast (principal); M81.0 Age-related osteoporosis without current pathological fracture; M85.851 Other specified disorders of bone density and structure, right thigh; M85.852 Other specified disorders of bone density and structure, left thigh ==

== ENCOUNTER 2022-11-16 20:14 | Emergency (ER) | payer MEDICARE, MEDICAID | END 2022-11-16 21:23 | disposition left against medical advice (07) | LOC: M ED 20:14 | DX: Z53.21 Procedure and treatment not carried out due to patient leaving prior to being seen by health care provider (principal) ==

== ENCOUNTER → 2022-11-17 | Outpatient (CLI) | payer MEDICARE, MEDICAID | LOC: M RAD 11:07 | PROVIDERS: ATTEND Physician Assistant | DX: I70.211 Atherosclerosis of native arteries of extremities with intermittent claudication, right leg (principal) ==

== ENCOUNTER 2022-12-01 10:55 | Emergency (ER) | payer MEDICARE, MEDICAID ==
[~2022-12-01] VITALS: Ht 149.9 cm; Wt 58.2 kg
[2022-12-01 14:03] VITALS: BP 158/81
== END 2022-12-01 14:46 | disposition home or self-care (01) ==
LOC: M ED 10:55
DX: M25.562 Pain in left knee (principal); E11.51 Type 2 diabetes mellitus with diabetic peripheral angiopathy without gangrene; I10 Essential (primary) hypertension; E78.5 Hyperlipidemia, unspecified; K21.9 Gastro-esophageal reflux disease without esophagitis; Z86.73 Personal history of transient ischemic attack (TIA), and cerebral infarction without residual deficits; Z79.82 Long term (current) use of aspirin; Z79.84 Long term (current) use of oral hypoglycemic drugs; Z79.899 Other long term (current) drug therapy; Z88.0 Allergy status to penicillin; Z88.7 Allergy status to serum and vaccine

== ENCOUNTER → 2023-01-23 | Outpatient (CLI) | payer MEDICARE, MEDICAID ==
[2023-01-23 10:25] LABS: BASO % 0.5 % (0.0-1.0); EOS # 0.2 10^3/uL (0.0-0.5); EOS % 2.4 % (0.0-3.0); HEMOGLOBIN 14.1 g/dl (12.0-15.5); LYMPH # 1.5 10^3/uL (1.5-5.0); LYMPH % 18.7 % (24.0-44.0); MEAN CORPUSCULAR HEMOGLOBIN 30.9 pg (27.0-33.0); MEAN CORPUSCULAR HGB CONC 32.8 g/dl (32.0-36.5); MEAN CORPUSCULAR VOLUME 94.3 fl (80.0-96.0); MONO # 0.9 10^3/uL (0.0-0.8); MONO % 10.8 % (2.0-8.0); NEUTROPHILS # 5.3 10^3/uL (1.5-8.5); NEUTROPHILS % 67.1 % (36.0-66.0); PLATELET COUNT, AUTOMATED 230 10^3/uL (150-450); RED BLOOD COUNT 4.56 10^6/uL (4.00-5.40)
[2023-01-23 10:38] LABS: CREATININE, URINE 37.5 MG/DL; MAU/CREAT RATIO 13.3 MCG/MG (0.0-30.0)
[2023-01-23 10:51] LABS: ALBUMIN 3.7 G/DL (3.2-5.2); ALKALINE PHOSPHATASE 32 U/L (46-116); ALT/SGPT 30 U/L (7.0-40); AST/SGOT 17 U/L (<34); BILIRUBIN,TOTAL 0.3 MG/DL (0.3-1.2); BLOOD UREA NITROGEN 17 MG/DL (9-23); CARBON DIOXIDE LEVEL 30 MMOL/L (20-31); CHLORIDE LEVEL 102 MMOL/L (98-107); CHOLESTEROL LEVEL 118 MG/DL (<200); CHOLESTEROL RISK RATIO 2.16 (<5); CREATININE FOR GFR 0.73 MG/DL (0.55-1.30); GLOMERULAR FILTRATION RATE > 60.0 (>39); GLUCOSE, FASTING 110 MG/DL (74-106); HDL CHOLESTEROL 54.6 MG/DL (>40); LDL CHOLESTEROL 48.2 MG/DL (<100); NON-HDL-C 63.4 MG/DL; POTASSIUM SERUM 4.1 MMOL/L (3.5-5.1); SODIUM LEVEL 138 MMOL/L (136-145); TOTAL PROTEIN 6.6 G/DL (5.7-8.2); TRIGLYCERIDES LEVEL 76 MG/DL (<150)
[2023-01-23 10:53] LABS: TOTAL 25(OH) VITAMIN D 41.6 NG/ML (20.0-100.0)
[2023-01-23 11:06] LABS: HEMOGLOBIN A1c 6.8 % (4.0-6.0)
== END ==
LOC: M LAB 08:47
PROVIDERS: ATTEND Nurse Practitioner Family
DX: I10 Essential (primary) hypertension (principal); Z79.899 Other long term (current) drug therapy

== ENCOUNTER → 2023-03-20 | Outpatient (CLI) | payer MEDICARE, MEDICAID ==
[2023-03-20 14:16] LABS: BLOOD UREA NITROGEN 14 MG/DL (9-23); CREATININE FOR GFR 0.69 MG/DL (0.55-1.30); GLOMERULAR FILTRATION RATE > 60.0 (>39)
== END ==
LOC: M LAB 13:09
PROVIDERS: ATTEND Surgery Vascular Surgery
DX: I70.90 Unspecified atherosclerosis (principal)

== ENCOUNTER → 2023-05-13 | Outpatient (CLI) | payer MEDICARE, MEDICAID ==
[~2023-05-13] MED LIST changes: -ROSU20TA5; +ROSU20TA61
[2023-05-13 07:28] LABS: HEMATOCRIT 44.2 % (36.0-47.0); HEMOGLOBIN 14.9 g/dl (12.0-15.5); MEAN CORPUSCULAR HEMOGLOBIN 31.4 pg (27.0-33.0); MEAN CORPUSCULAR HGB CONC 33.7 g/dl (32.0-36.5); MEAN CORPUSCULAR VOLUME 93.1 fl (80.0-96.0); PLATELET COUNT, AUTOMATED 249 10^3/uL (150-450); RED BLOOD COUNT 4.75 10^6/uL (4.00-5.40); WHITE BLOOD COUNT 7.1 10^3/uL (4.0-10.0)
[2023-05-13 07:41] LABS: HEMOGLOBIN A1c 6.8 % (4.0-6.0)
[2023-05-13 07:52] LABS: ALBUMIN 4.2 G/DL (3.2-5.2); ALKALINE PHOSPHATASE 32 U/L (46-116); ALT/SGPT 29 U/L (7.0-40); AST/SGOT 15 U/L (<34); BILIRUBIN,TOTAL 0.5 MG/DL (0.3-1.2); BLOOD UREA NITROGEN 11 MG/DL (9-23); CALCIUM LEVEL 9.6 MG/DL (8.3-10.6); CARBON DIOXIDE LEVEL 29 MMOL/L (20-31); CHLORIDE LEVEL 100 MMOL/L (98-107); CHOLESTEROL LEVEL 103 MG/DL (<200); CHOLESTEROL RISK RATIO 2.41 (<5); CREATININE FOR GFR 0.71 MG/DL (0.55-1.30); GLOMERULAR FILTRATION RATE > 60.0 (>39); GLUCOSE, FASTING 140 MG/DL (74-106); HDL CHOLESTEROL 42.7 MG/DL (>40); LDL CHOLESTEROL 35.5 MG/DL (<100); NON-HDL-C 60.3 MG/DL; POTASSIUM SERUM 4.4 MMOL/L (3.5-5.1); SODIUM LEVEL 136 MMOL/L (136-145); TOTAL PROTEIN 6.9 G/DL (5.7-8.2); TRIGLYCERIDES LEVEL 124 MG/DL (<150)
== END ==
LOC: M LAB 06:12
PROVIDERS: ATTEND Nurse Practitioner Family
DX: E11.9 Type 2 diabetes mellitus without complications (principal); E78.2 Mixed hyperlipidemia; I25.10 Atherosclerotic heart disease of native coronary artery without angina pectoris

== ENCOUNTER → 2023-05-25 | Outpatient (CLI) | payer MEDICARE, MEDICAID ==
[2023-05-25 09:04] LABS: INR 0.98; PROTHROMBIN TIME 12.7 SECONDS (12.5-14.5)
== END ==
LOC: M RAD 07:45
PROVIDERS: ATTEND Student in an Organized Health Care Education/Training Program
DX: R06.02 Shortness of breath (principal); I10 Essential (primary) hypertension; E11.9 Type 2 diabetes mellitus without complications

== ENCOUNTER 2023-07-25 22:38 | Emergency (ER) | payer MEDICARE, MEDICAID ==
[~2023-07-25] VITALS: Ht 149.9 cm; Wt 59.6 kg
[2023-07-25 23:08] LABS: BASO # 0.1 10^3/uL (0.0-0.2); BASO % 0.7 % (0.0-1.0); EOS # 0.3 10^3/uL (0.0-0.5); EOS % 3.3 % (0.0-3.0); HEMATOCRIT 37.5 % (36.0-47.0); LYMPH # 2.1 10^3/uL (1.5-5.0); LYMPH % 25.7 % (24.0-44.0); MEAN CORPUSCULAR HEMOGLOBIN 31.9 pg (27.0-33.0); MEAN CORPUSCULAR HGB CONC 34.7 g/dl (32.0-36.5); MEAN CORPUSCULAR VOLUME 92.1 fl (80.0-96.0); MONO # 0.9 10^3/uL (0.0-0.8); MONO % 10.9 % (2.0-8.0); NEUTROPHILS # 4.9 10^3/uL (1.5-8.5); NEUTROPHILS % 58.8 % (36.0-66.0); PLATELET COUNT, AUTOMATED 295 10^3/uL (150-450); RED BLOOD COUNT 4.07 10^6/uL (4.00-5.40); WHITE BLOOD COUNT 8.3 10^3/uL (4.0-10.0)
[2023-07-25 23:20] LABS: INR 1.03; PROTHROMBIN TIME 13.2 SECONDS (12.5-14.5)
[2023-07-25 23:21] LABS: PARTIAL THROMBOPLASTIN TIME 30.6 SECONDS (24.8-34.2)
[2023-07-25 23:46] LABS: BLOOD UREA NITROGEN 12 MG/DL (9-23); CARBON DIOXIDE LEVEL 28 MMOL/L (20-31); CHLORIDE LEVEL 101 MMOL/L (98-107); CK-MB VALUE MASS < 1.0 NG/ML (<3.6); CREATININE FOR GFR 0.67 MG/DL (0.55-1.30); GLOMERULAR FILTRATION RATE > 60.0 (>39); GLUCOSE, FASTING 160 MG/DL (74-106); MAGNESIUM LEVEL 1.9 MG/DL (1.8-2.4); POTASSIUM SERUM 3.8 MMOL/L (3.5-5.1); SODIUM LEVEL 137 MMOL/L (136-145)
[2023-07-25 23:47] LABS: FREE T4 1.07 NG/DL (0.89-1.76)
[2023-07-25 23:48] LABS: THYROID STIMULATING HORMONE 3.573 uIU/ML (0.55-4.78)
[2023-07-25] MEDS ORDERED: ASPIRIN 81MG CHEW TABLET PO ONE (23:50)
[2023-07-25 23:54] LABS: CPK CREATINE PHOSPHOKINASE 54 U/L (34-145); MB/CK RELATIVE INDEX 1.85 (< OR =4)
[2023-07-26] MEDS ORDERED: ISOVUE-370 76% 100ML VIAL As Ordered ONE (00:34)
[2023-07-26 00:51] LABS: CK-MB VALUE MASS < 1.0 NG/ML (<3.6)
[2023-07-26 00:55] LABS: CPK CREATINE PHOSPHOKINASE 49 U/L (34-145); MB/CK RELATIVE INDEX 2.04 (< OR =4)
[2023-07-26 02:01] VITALS: BP 146/67
[2023-07-26 02:08] VITALS: TEMP 98.1
[2023-07-26 02:23] VITALS: O2SAT 84
== END 2023-07-26 02:38 | disposition home or self-care (01) ==
LOC: M ED 22:38
DX: R07.9 Chest pain, unspecified (principal); I25.10 Atherosclerotic heart disease of native coronary artery without angina pectoris; I10 Essential (primary) hypertension; K21.9 Gastro-esophageal reflux disease without esophagitis; F31.89 Other bipolar disorder; G40.909 Epilepsy, unspecified, not intractable, without status epilepticus; Z79.01 Long term (current) use of anticoagulants; Z79.82 Long term (current) use of aspirin; Z79.899 Other long term (current) drug therapy; Z88.0 Allergy status to penicillin; Z88.7 Allergy status to serum and vaccine
CPT/HCPCS: 71045; 71275; 80048; 82550; 82553; 83735; 83880; 84439; 84443; 84484; 85025; 85610; 85730; 93005; 93041; 94760; 99285; Q9967

== ENCOUNTER → 2023-09-01 | Outpatient (CLI) | payer MEDICARE, MEDICAID | LOC: M RAD 10:28 | PROVIDERS: ATTEND Physician Assistant | DX: I73.9 Peripheral vascular disease, unspecified (principal) ==

== ENCOUNTER → 2023-09-25 | Outpatient (CLI) | payer MEDICARE, MEDICAID ==
[2023-09-25 08:12] LABS: BASO # 0.1 10^3/uL (0.0-0.2); BASO % 0.8 % (0.0-1.0); EOS # 0.2 10^3/uL (0.0-0.5); EOS % 3.6 % (0.0-3.0); HEMATOCRIT 42.6 % (36.0-47.0); HEMOGLOBIN 14.6 g/dl (12.0-15.5); LYMPH % 16.6 % (24.0-44.0); MEAN CORPUSCULAR HEMOGLOBIN 31.5 pg (27.0-33.0); MEAN CORPUSCULAR HGB CONC 34.3 g/dl (32.0-36.5); MONO # 0.7 10^3/uL (0.0-0.8); MONO % 10.6 % (2.0-8.0); NEUTROPHILS # 4.2 10^3/uL (1.5-8.5); NEUTROPHILS % 67.9 % (36.0-66.0); PLATELET COUNT, AUTOMATED 241 10^3/uL (150-450); RED BLOOD COUNT 4.63 10^6/uL (4.00-5.40); WHITE BLOOD COUNT 6.1 10^3/uL (4.0-10.0)
[2023-09-25 08:33] LABS: HEMOGLOBIN A1c 6.7 % (4.0-6.0)
[2023-09-25 08:34] LABS: CREATININE, URINE 82.8 MG/DL
[2023-09-25 08:35] LABS: MAU/CREAT RATIO 77.2 MCG/MG (0.0-30.0)
[2023-09-25 08:37] LABS: ALBUMIN 3.7 G/DL (3.2-5.2); ALKALINE PHOSPHATASE 43 U/L (46-116); ALT/SGPT 30 U/L (7.0-40); AST/SGOT 18 U/L (<34); BILIRUBIN,TOTAL 0.5 MG/DL (0.3-1.2); BLOOD UREA NITROGEN 11 MG/DL (9-23); CALCIUM LEVEL 9.6 MG/DL (8.3-10.6); CARBON DIOXIDE LEVEL 30 MMOL/L (20-31); CHLORIDE LEVEL 100 MMOL/L (98-107); CHOLESTEROL LEVEL 111 MG/DL (<200); CHOLESTEROL RISK RATIO 2.27 (<5); CREATININE FOR GFR 0.67 MG/DL (0.55-1.30); GLOMERULAR FILTRATION RATE > 60.0 (>39); GLUCOSE, FASTING 139 MG/DL (74-106); HDL CHOLESTEROL 48.7 MG/DL (>40); LDL CHOLESTEROL 38.5 MG/DL (<100); NON-HDL-C 62.3 MG/DL; POTASSIUM SERUM 4.4 MMOL/L (3.5-5.1); SODIUM LEVEL 135 MMOL/L (136-145); TOTAL 25(OH) VITAMIN D 60.4 NG/ML (20.0-100.0); TOTAL PROTEIN 6.8 G/DL (5.7-8.2); TRIGLYCERIDES LEVEL 119 MG/DL (<150)
== END ==
LOC: M LAB 06:22
PROVIDERS: ATTEND Nurse Practitioner Family
DX: E55.9 Vitamin D deficiency, unspecified (principal); E78.5 Hyperlipidemia, unspecified; G40.909 Epilepsy, unspecified, not intractable, without status epilepticus; I10 Essential (primary) hypertension; E11.9 Type 2 diabetes mellitus without complications

== ENCOUNTER → 2024-03-23 | Outpatient (REF) | payer OTHER, MEDICAID, MEDICARE ==
[2024-03-23 15:55] LABS: MAU/CREAT RATIO 116.6 MCG/MG (0.0-30.0)
== END ==
LOC: M SFHCPLAZ 14:46
PROVIDERS: ATTEND Nurse Practitioner Family
DX: Z79.899 Other long term (current) drug therapy (principal); E11.9 Type 2 diabetes mellitus without complications

== ENCOUNTER → 2024-03-24 | Outpatient (CLI) | payer OTHER, MEDICAID ==
[2024-03-24 07:44] LABS: BASO # 0.1 10^3/uL (0.0-0.2); BASO % 0.8 % (0.0-1.0); EOS # 0.2 10^3/uL (0.0-0.5); EOS % 2.5 % (0.0-3.0); HEMATOCRIT 42.2 % (36.0-47.0); HEMOGLOBIN 14.1 g/dl (12.0-15.5); LYMPH # 1.4 10^3/uL (1.5-5.0); LYMPH % 22.9 % (24.0-44.0); MEAN CORPUSCULAR HEMOGLOBIN 31.5 pg (27.0-33.0); MEAN CORPUSCULAR HGB CONC 33.4 g/dl (32.0-36.5); MEAN CORPUSCULAR VOLUME 94.4 fl (80.0-96.0); MONO # 0.8 10^3/uL (0.0-0.8); MONO % 12.9 % (2.0-8.0); NEUTROPHILS # 3.8 10^3/uL (1.5-8.5); NEUTROPHILS % 60.4 % (36.0-66.0); PLATELET COUNT, AUTOMATED 209 10^3/uL (150-450); RED BLOOD COUNT 4.47 10^6/uL (4.00-5.40); WHITE BLOOD COUNT 6.3 10^3/uL (4.0-10.0)
[2024-03-24 08:00] LABS: HEMOGLOBIN A1c 6.9 % (4.0-6.0)
[2024-03-24 08:14] LABS: ALBUMIN 3.8 G/DL (3.2-5.2); ALKALINE PHOSPHATASE 45 U/L (46-116); ALT/SGPT 36 U/L (7.0-40); AST/SGOT 17 U/L (<34); BILIRUBIN,TOTAL 0.4 MG/DL (0.3-1.2); BLOOD UREA NITROGEN 12 MG/DL (9-23); CALCIUM LEVEL 9.3 MG/DL (8.3-10.6); CARBON DIOXIDE LEVEL 31 MMOL/L (20-31); CHLORIDE LEVEL 102 MMOL/L (98-107); CHOLESTEROL LEVEL 114 MG/DL (<200); CHOLESTEROL RISK RATIO 2.01 (<5); CREATININE FOR GFR 0.67 MG/DL (0.55-1.30); GLOMERULAR FILTRATION RATE > 60.0 (>39); GLUCOSE, FASTING 170 MG/DL (74-106); HDL CHOLESTEROL 56.6 MG/DL (>40); NON-HDL-C 57.4 MG/DL; POTASSIUM SERUM 4.1 MMOL/L (3.5-5.1); SODIUM LEVEL 138 MMOL/L (136-145); TOTAL PROTEIN 6.4 G/DL (5.7-8.2); TRIGLYCERIDES LEVEL 82 MG/DL (<150)
[2024-03-24 08:15] LABS: THYROID STIMULATING HORMONE 2.666 uIU/ML (0.55-4.78)
[2024-03-24 08:16] LABS: FREE T4 1.03 NG/DL (0.89-1.76); TOTAL 25(OH) VITAMIN D 55.1 NG/ML (20.0-100.0)
== END ==
LOC: M LAB 06:33
PROVIDERS: ATTEND Nurse Practitioner Family
DX: E78.5 Hyperlipidemia, unspecified (principal); I10 Essential (primary) hypertension; E11.9 Type 2 diabetes mellitus without complications; E55.9 Vitamin D deficiency, unspecified

== ENCOUNTER → 2024-04-12 | Outpatient (REF) | payer OTHER, MEDICAID ==
[~2024-04-12] MED LIST changes: +MILKSUS3 PO
== END ==
LOC: M SFHCPLAZ 12:48
PROVIDERS: ATTEND Physician Assistant Medical
DX: R10.31 Right lower quadrant pain (principal)

== ENCOUNTER 2024-04-16 07:23 | Emergency (ER) | payer OTHER, MEDICAID ==
[~2024-04-16] VITALS: Ht 149.9 cm; Wt 59.7 kg
[~2024-04-16 07:23] MED LIST changes: -MILKSUS3 PO
[2024-04-16] MEDS: MORPHINE 2 MG/ML 1ML VIAL IV PRN (10:06)
[2024-04-16] MEDS: ONDANSETRON 4MG 2ML VIAL IV ONE (10:06)
[2024-04-16 10:25] LABS: BASO # 0.1 10^3/uL (0.0-0.2); BASO % 0.7 % (0.0-1.0); EOS # 0.1 10^3/uL (0.0-0.5); EOS % 1.7 % (0.0-3.0); HEMATOCRIT 47.2 % (36.0-47.0); HEMOGLOBIN 16.2 g/dl (12.0-15.5); LYMPH # 1.5 10^3/uL (1.5-5.0); LYMPH % 18.9 % (24.0-44.0); MEAN CORPUSCULAR HEMOGLOBIN 32.1 pg (27.0-33.0); MEAN CORPUSCULAR HGB CONC 34.3 g/dl (32.0-36.5); MEAN CORPUSCULAR VOLUME 93.5 fl (80.0-96.0); MONO # 0.9 10^3/uL (0.0-0.8); MONO % 11.6 % (2.0-8.0); NEUTROPHILS # 5.4 10^3/uL (1.5-8.5); NEUTROPHILS % 66.6 % (36.0-66.0); PLATELET COUNT, AUTOMATED 280 10^3/uL (150-450); RED BLOOD COUNT 5.05 10^6/uL (4.00-5.40); WHITE BLOOD COUNT 8.1 10^3/uL (4.0-10.0)
[2024-04-16 10:49] LABS: LIPASE 38 U/L (12-53)
[2024-04-16 10:51] LABS: ALBUMIN 4.5 G/DL (3.2-5.2); ALKALINE PHOSPHATASE 77 U/L (46-116); ALT/SGPT 34 U/L (7.0-40); AST/SGOT 17 U/L (<34); BILIRUBIN,DIRECT 0.1 MG/DL (<0.4); BILIRUBIN,TOTAL 0.4 MG/DL (0.3-1.2); BLOOD UREA NITROGEN 13 MG/DL (9-23); CALCIUM LEVEL 9.8 MG/DL (8.3-10.6); CARBON DIOXIDE LEVEL 28 MMOL/L (20-31); CHLORIDE LEVEL 99 MMOL/L (98-107); CREATININE FOR GFR 0.59 MG/DL (0.55-1.30); GLOMERULAR FILTRATION RATE > 60.0 (>39); GLUCOSE, FASTING 161 MG/DL (74-106); POTASSIUM SERUM 4.4 MMOL/L (3.5-5.1); SODIUM LEVEL 134 MMOL/L (136-145); TOTAL PROTEIN 7.9 G/DL (5.7-8.2)
[2024-04-16] MEDS ORDERED: ISOVUE-370 76% 100ML VIAL As Ordered ONE (11:11)
[2024-04-16] MEDS ORDERED: MILKSUS3 PO (13:22)
[2024-04-16] MEDS: KETOROLAC 30 MG/ML 1ML VIAL IV ONE (13:30)
[2024-04-16 13:50] VITALS: BP 168/74; TEMP 97.4; O2SAT 96
== END 2024-04-16 13:52 | disposition home or self-care (01) ==
LOC: M ED 07:23
DX: K59.00 Constipation, unspecified (principal); I25.10 Atherosclerotic heart disease of native coronary artery without angina pectoris; E11.51 Type 2 diabetes mellitus with diabetic peripheral angiopathy without gangrene; I10 Essential (primary) hypertension; E78.5 Hyperlipidemia, unspecified; Z87.891 Personal history of nicotine dependence; Z79.82 Long term (current) use of aspirin; Z79.899 Other long term (current) drug therapy; Z88.0 Allergy status to penicillin; Z88.7 Allergy status to serum and vaccine
CPT/HCPCS: 74177; 80048; 80076; 81001; 83690; 85025; 96374; 96375; 99283; J1885; J2405; Q9967

== ENCOUNTER → 2024-04-18 | Outpatient (CLI) | payer OTHER, MEDICAID ==
[~2024-04-18] MED LIST changes: +MILKSUS3 PO
== END ==
LOC: M PLAIMG 10:42
PROVIDERS: ATTEND Nurse Practitioner Family
DX: M47.816 Spondylosis without myelopathy or radiculopathy, lumbar region (principal)

== ENCOUNTER → 2024-10-10 | Outpatient (REF) | payer OTHER, MEDICAID ==
[~2024-10-10] MED LIST changes: +IBAN150T10 PO; -IBAN150T6 PO; -ROSU20TA61; +ROSU20TA86
== END ==
LOC: M SFHCPLAZ 17:09
PROVIDERS: ATTEND Nurse Practitioner Family
DX: Z79.899 Other long term (current) drug therapy (principal)

== ENCOUNTER → 2024-10-11 | Outpatient (CLI) | payer OTHER, MEDICAID ==
[2024-10-11 07:14] LABS: BASO # 0.1 10^3/uL (0.0-0.2); BASO % 0.9 % (0.0-1.0); EOS # 0.2 10^3/uL (0.0-0.5); EOS % 3.2 % (0.0-3.0); HEMOGLOBIN 14.2 g/dl (12.0-15.5); LYMPH # 1.2 10^3/uL (1.5-5.0); MEAN CORPUSCULAR HEMOGLOBIN 30.8 pg (27.0-33.0); MEAN CORPUSCULAR HGB CONC 33.8 g/dl (32.0-36.5); MEAN CORPUSCULAR VOLUME 91.1 fl (80.0-96.0); MONO # 0.7 10^3/uL (0.0-0.8); MONO % 11.5 % (2.0-8.0); NEUTROPHILS # 3.5 10^3/uL (1.5-8.5); PLATELET COUNT, AUTOMATED 231 10^3/uL (150-450); RED BLOOD COUNT 4.61 10^6/uL (4.00-5.40); WHITE BLOOD COUNT 5.6 10^3/uL (4.0-10.0)
[2024-10-11 07:35] LABS: CREATININE, URINE 132.2 MG/DL; MAU/CREAT RATIO 218.6 MCG/MG (0.0-30.0)
[2024-10-11 07:39] LABS: ALBUMIN 3.9 G/DL (3.2-5.2); ALKALINE PHOSPHATASE 40 U/L (35-104); ALT/SGPT 24 U/L (7.0-40); AST/SGOT 18 U/L (<34); BILIRUBIN,TOTAL 0.6 MG/DL (0.3-1.2); BLOOD UREA NITROGEN 13 MG/DL (9-23); CALCIUM LEVEL 9.8 MG/DL (8.3-10.6); CARBON DIOXIDE LEVEL 28 MMOL/L (20-31); CHLORIDE LEVEL 104 MMOL/L (98-107); CHOLESTEROL LEVEL 99 MG/DL (<200); CHOLESTEROL RISK RATIO 2.45 (<5); CREATININE FOR GFR 0.71 MG/DL (0.55-1.30); GLOMERULAR FILTRATION RATE > 60.0 (>39); GLUCOSE, FASTING 155 MG/DL (74-106); HDL CHOLESTEROL 40.3 MG/DL (>40); LDL CHOLESTEROL 41.9 MG/DL (<100); NON-HDL-C 58.7 MG/DL; POTASSIUM SERUM 3.8 MMOL/L (3.5-5.1); SODIUM LEVEL 141 MMOL/L (136-145); TOTAL PROTEIN 7.1 G/DL (5.7-8.2); TRIGLYCERIDES LEVEL 84 MG/DL (<150); VITAMIN B12 LEVEL 397 PG/ML (211-911)
[2024-10-13 12:15] LABS: HEMOGLOBIN A1c 6.8 % (4.0-6.0)
[2024-10-14 14:07] LABS: HEMOGLOBIN A2 QUANTITATIVE 2.6 % (1.8-3.2)
== END ==
LOC: M LAB 06:15
PROVIDERS: ATTEND Nurse Practitioner Family
DX: E11.9 Type 2 diabetes mellitus without complications (principal); E55.9 Vitamin D deficiency, unspecified; G40.909 Epilepsy, unspecified, not intractable, without status epilepticus; I10 Essential (primary) hypertension; E78.5 Hyperlipidemia, unspecified; E53.8 Deficiency of other specified B group vitamins

== ENCOUNTER → 2024-10-26 | Outpatient (CLI) | payer MEDICARE, MEDICAID | LOC: M WHC 09:48 | PROVIDERS: ATTEND Nurse Practitioner Family | DX: M81.0 Age-related osteoporosis without current pathological fracture (principal); Z12.31 Encounter for screening mammogram for malignant neoplasm of breast; M85.89 Other specified disorders of bone density and structure, multiple sites ==

== ENCOUNTER → 2025-01-26 | Outpatient (CLI) | payer MEDICARE, MEDICAID ==
[2025-01-26 13:24] LABS: BASO # 0.1 10^3/uL (0.0-0.2); BASO % 0.8 % (0.0-1.0); EOS # 0.2 10^3/uL (0.0-0.5); EOS % 2.1 % (0.0-3.0); HEMATOCRIT 42.5 % (36.0-47.0); HEMOGLOBIN 14.4 g/dl (12.0-15.5); LYMPH # 1.9 10^3/uL (1.5-5.0); LYMPH % 23.6 % (24.0-44.0); MEAN CORPUSCULAR HEMOGLOBIN 31.9 pg (27.0-33.0); MEAN CORPUSCULAR HGB CONC 33.9 g/dl (32.0-36.5); MONO # 0.8 10^3/uL (0.0-0.8); MONO % 10.3 % (2.0-8.0); NEUTROPHILS % 62.8 % (36.0-66.0); PLATELET COUNT, AUTOMATED 231 10^3/uL (150-450); RED BLOOD COUNT 4.52 10^6/uL (4.00-5.40); WHITE BLOOD COUNT 7.9 10^3/uL (4.0-10.0)
[2025-01-26 13:35] LABS: INR 0.94; PROTHROMBIN TIME 12.8 SECONDS (12.5-14.5)
[2025-01-26 13:47] LABS: ALBUMIN 3.7 G/DL (3.2-5.2); BILIRUBIN,TOTAL 0.4 MG/DL (0.3-1.2); CALCIUM LEVEL 9.6 MG/DL (8.3-10.6); CREATININE FOR GFR 0.77 MG/DL (0.55-1.30); GLOMERULAR FILTRATION RATE 79.9 (>39); POTASSIUM SERUM 3.9 MMOL/L (3.5-5.1); TOTAL PROTEIN 6.7 G/DL (5.7-8.2)
== END ==
LOC: M RAD 12:21
PROVIDERS: ATTEND Internal Medicine Cardiovascular Disease
DX: Z01.810 Encounter for preprocedural cardiovascular examination (principal); I10 Essential (primary) hypertension; I25.10 Atherosclerotic heart disease of native coronary artery without angina pectoris

== ENCOUNTER → 2025-08-01 | Outpatient (CLI) | payer MEDICARE, MEDICAID | LOC: M WUC 10:39 | DX: R07.89 Other chest pain (principal) ==

== ENCOUNTER → 2025-09-25 | Outpatient (REF) | payer MEDICARE, MEDICAID ==
[2025-09-26 12:07] LABS: BARBITURATES SCREEN, URINE Negative ng/mL (Cutoff=200); BENZODIAZEPINES, URINE SCREEN Negative ng/mL (Cutoff=200); CREATININE, URINE 23.6 mg/dL (20.0-300.0); METHADONE, URINE SCREEN Negative ng/mL (Cutoff=300); OPIATE SCREEN, URINE Negative ng/mL (Cutoff=300); OXYCODONE, SCREEN, URINE Negative ng/mL (Cutoff=100); PCP SCREEN, URINE Negative ng/mL (Cutoff=25)
== END ==
LOC: M SFHCPLAZ 12:53
PROVIDERS: ATTEND Nurse Practitioner Family
DX: F41.0 Panic disorder [episodic paroxysmal anxiety] (principal); Z79.899 Other long term (current) drug therapy

== ENCOUNTER → 2025-09-30 | Outpatient (CLI) | payer MEDICARE, MEDICAID ==
[2025-09-30 09:54] LABS: BASO # 0.1 10^3/uL (0.0-0.2); BASO % 0.7 % (0.0-1.0); EOS # 0.1 10^3/uL (0.0-0.5); EOS % 1.5 % (0.0-3.0); LYMPH # 1.4 10^3/uL (1.5-5.0); LYMPH % 18.8 % (24.0-44.0); MONO # 0.8 10^3/uL (0.0-0.8); MONO % 10.3 % (2.0-8.0); NEUTROPHILS # 5.0 10^3/uL (1.5-8.5); NEUTROPHILS % 68.4 % (36.0-66.0); PLATELET COUNT, AUTOMATED 252 10^3/uL (150-450)
[2025-09-30 10:29] LABS: ALT/SGPT 48.0 U/L (7.0-40); AST/SGOT 31.0 U/L (<34); CALCIUM LEVEL 9.4 MG/DL (8.3-10.6); CARBON DIOXIDE LEVEL 28.0 MMOL/L (20-31); CHLORIDE LEVEL 101.0 MMOL/L (98-107); CHOLESTEROL LEVEL 107.0 MG/DL (<200); CHOLESTEROL RISK RATIO 2.27 (<5); CREATININE FOR GFR 0.72 MG/DL (0.55-1.30); GLOMERULAR FILTRATION RATE 86.1 (>39); LDL CHOLESTEROL 30.4 MG/DL (<100); MAGNESIUM LEVEL 1.9 MG/DL (1.8-2.4); NON-HDL-C 60.0 MG/DL; POTASSIUM SERUM 4.1 MMOL/L (3.5-5.1); SODIUM LEVEL 138.0 MMOL/L (136-145); TRIGLYCERIDES LEVEL 148.0 MG/DL (<150)
[2025-09-30 10:30] LABS: VITAMIN B12 LEVEL 355.0 PG/ML (211-911)
[2025-09-30 10:43] LABS: ESTIMATED AVERAGE GLUCOSE 166.0 MG/DL (60-110)
[2025-10-01 14:15] LABS: CREATININE, URINE 192.6 MG/DL
[2025-10-01 14:51] LABS: MALB URINE SIEMENS 640.0 MG/L; MAU/CREAT RATIO 332.2 MCG/MG (0.0-30.0)
== END ==
LOC: M PLALAB 09:04 → M LAB 09:04
PROVIDERS: ATTEND Nurse Practitioner Family
DX: E11.9 Type 2 diabetes mellitus without complications (principal); R80.9 Proteinuria, unspecified; E78.5 Hyperlipidemia, unspecified; G40.909 Epilepsy, unspecified, not intractable, without status epilepticus; E55.9 Vitamin D deficiency, unspecified